=== PATIENT | male | born 1945 | race Hispanic/Latino ===

== ENCOUNTER 2016-10-04 06:52 | Inpatient (IN) | payer MEDICARE, OTHER ==
[2016-10-04] MEDS ORDERED: DUONEB 0.5 MG-3 MG/3 ML SOLN IH ONE (07:01)
--- NOTE | 2016-10-04 07:15 | XRay Report ---
AP CHEST History: Dyspnea. Findings: Mild cardiomegaly, mild pulmonary venous congestion and small bilateral pleural effusions are identified. This is similar in appearance to the exam dated 08/21/16. There are bibasilar atelectatic changes but no convincing pneumonia. No pneumothorax. Azygos lobe is noted. Previous CABG changes. Impression: CHF.
--- NOTE | 2016-10-04 07:23 | Admit Criteria Form ---
Admission Criteria Documentation: RESPIRATORY FAILURE GRG Clinical Indications for Admission to Inpatient Care (Place 'X' for any and all applicable criteria): Hospital admission is needed for appropriate care of the patient because of acute respiratory failure or insufficiency as indicated by ANY ONE of the following(1)(2)(3)(4)(5)(6)(7)(8): [X ]I. Mechanical ventilation needed (acute invasive or noninvasive) [ ]II. Severe ventilation deficit as indicated by ANY ONE of the following (9) [ ]a) Respiratory acidosis (pH less than 7.32 and partial pressure of carbon dioxide greater than 40 mm Hg (5.3 kPa)) [ ]b) Partial pressure of carbon dioxide greater than 44 mm Hg (5.9 kPa ) (new) [ ]c) Airflow measurements less than 25% of predicted (eg, peak expiratory flow rate less than 100 L/minute) [ ]d) Forced vital capacity less than 15 mL/kg of ideal body weight, or 50% decrease in vital capacity from baseline [ ]III. Noncardiac pulmonary edema not resolving with rapid emergency treatment (8) [ ]IV. Severe respiratory distress as indicated by ANY ONE of the following: [ ]a) Severe tachypnea (respiratory rate greater than 30, greater than 45 for 6-month-old, greater than 60 for ) [ ]b) Severe hypoxemia (partial pressure of oxygen less than 50 mm Hg ( 6.7 kPa) on greater than 50% oxygen or partial pressure of oxygen to FIO2 ratio less than 200) [ ]c) Mental status deterioration from respiratory disease [ ]V. Airway obstruction or inadequate protection [A](10)(11) The original [employer] content created by [employer] has been revised. The portions of the content which have been revised are identified through the use of italic text or in bold, and [employer] has neither reviewed nor approved the modified material. All other unmodified content is copyright [employer]. Please see references footnoted in the original [employer] edition 2016 Admission Criteria Met: Yes
[2016-10-04] MEDS ORDERED: LASIX IV ONE (07:28)
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
[2016-10-04 07:38] LABS: Hematocrit 29.4 % (35.5-45.6); Hemoglobin 9.4 gm/dl (11.8-15.2); Mean Corpuscular HGB Conc 32 % (32-34); Mean Corpuscular Volume 78 fl (84-94); Platelet Count 351 K/mm3 (140-440); Red Blood Count 3.76 M/mm3 (3.65-5.03); Red Cell Distribution Width 18.2 % (13.2-15.2); White Blood Count 10.4 K/mm3 (4.5-11.0)
[2016-10-04 07:39] LABS: Mean Corpuscular Hemoglobin 25 pg (28-32)
[2016-10-04 07:47] LABS: INR 1.16 (0.87-1.13); Partial Thromboplastin Time 26.2 Sec. (24.2-36.6)
[2016-10-04 07:51] LABS: Creatine Kinase MB 6.2 ng/mL (0.0-4.0)
[2016-10-04 07:53] LABS: Alanine Aminotransferase 22 units/L (7-56); Albumin 3.8 g/dL (3.9-5); Albumin/Globulin Ratio 1.5 %; Alkaline Phosphatase 64 units/L (35-129); Anion Gap 21 mmol/L; BUN/Creatinine Ratio 22.72; Bilirubin,Total 0.3 mg/dL (0.1-1.2); Blood Urea Nitrogen 25 mg/dL (9-20); Calcium 8.5 mg/dL (8.4-10.2); Carbon Dioxide 21 mmol/L (22-30); Chloride 101.1 mmol/L (98-107); Creatine Kinase 131 units/L (55-170); Glucose 270 mg/dL (75-100); Potassium 3.8 mmol/L (3.6-5.0); Sodium 139 mmol/L (137-145); Total Protein 6.4 g/dL (6.3-8.2)
[2016-10-04 08:11] LABS: Basophils % (Manual) 0 % (0.0-1.8); Blastocytes % (Manual) 0 %; Eosinophils % (Manual) 0 % (0.0-4.3)
[2016-10-04 08:12] LABS: Anisocytosis 1+; Elliptocytes Few
[2016-10-04 08:13] LABS: Diff Status Complete; Helmet Cells Few; Large Platelets Rare; Ovalocytes 1+; Tear Drop Cells 1+
[2016-10-04] MEDS ORDERED: NACL ONE (08:17)
[2016-10-04 08:32] LABS: ISTAT Base Excess -3; ISTAT HCO3 22.1; ISTAT PCO2 35.7 (35-45); ISTAT PH 7.399 (7.35-7.45); ISTAT PO2 64 (80-105); ISTAT SO2 92; ISTAT TCO2 23
[2016-10-04] MEDS ORDERED: LASIX ONE ×2 (08:47→11:24)
--- NOTE | 2016-10-04 10:24 | Cat Scan Report ---
CTA CHEST: HISTORY: Shortness of breath, elevated d-dimer. FINDINGS: No evidence of aortic aneurysm or pulmonary embolism. Mediastinal lymph nodes measuring approximately 1 cm in diameter. No pericardial effusion. Moderate bilateral pleural effusion. Compressive atelectasis of the lungs adjacent to the pleural effusion. Diffuse groundglass lungs bilaterally with pulmonary venous congestion. IMPRESSION: No evidence of pulmonary embolism. Probable CHF.
[2016-10-04] MEDS ORDERED: DULCOLAX PR PRN (11:42)
[2016-10-04] MEDS ORDERED: ALUM-MAG HYDROX-SIMETH 200-200-20MG/5ML PO PRN (11:42)
[2016-10-04] MEDS ORDERED: MILK OF MAGNESIA PO PRN (11:42)
[2016-10-04] MEDS ORDERED: PROAIR IH PRN (11:46)
[2016-10-04] MEDS ORDERED: D50W (25GM) IV PRN (11:47)
[2016-10-04] MEDS ORDERED: PROVENTIL IH PRN (12:53)
--- NOTE | 2016-10-04 13:05 | Consultation ---
History of Present Illness Consult date: 10/04/16 Consult reason: congestive heart failure History of present illness: Patient is a 71yr old man with history of coronary artery disease and ischemic cardiomyopathy. A year ago, he underwent three vessel coronary artery bypass done at the [facility]. Left ventricle ejection fraction 30-35% by echo 3 months ago. Reported noncompliant with outpatient cardiac followup at the [facility]. Patient presented to the ED with shortness of breath. Currently on Bipap therapy. Chest x-ray reports pleural effusions and mild venous congestion. No evidence of pulmonary embolism on chest CTA. ECG reveals a sinus tachycardia with a right bundle branch block. Cardiology consultation requested for CHF. Medications and Allergies Allergies Allergy/AdvReac Type Severity Reaction Status Date / Time lisinopril Allergy Swelling Verified 08/16/16 12:08 Penicillins Allergy Shortness Verified 08/16/16 12:08 of Breath tetracycline Allergy Rash Verified 08/16/16 12:08 Home Medications Medication Instructions Recorded Confirmed Last Taken Type Flomax 0.4 mg PO DAILY 08/16/16 10/04/16 10/03/16 History Magnesium Oxide [Magnesium] 400 mg PO DAILY 08/16/16 10/04/16 10/03/16 History NIFEdipine XL [Procardia Xl] 90 mg PO DAILY 08/16/16 10/04/16 10/03/16 History Potassium Chloride [K-Dur] 10 meq PO QDAY 08/16/16 10/04/16 10/03/16 History glipiZIDE [Glucotrol] 5 mg PO BID 08/16/16 10/04/16 10/03/16 History metFORMIN [Glucophage] 1,000 mg PO BID 08/16/16 10/04/16 10/03/16 History Albuterol Sulfate [Ventolin HFA] 2 puff IH Q4H PRN #1 pump 08/24/16 10/04/16 Rx Aspirin EC [Aspirin Enteric Coated 81 mg PO QDAY #30 tablet 08/24/16 10/04/16 Rx TAB] AtorvaSTATin [Lipitor] 40 mg PO QHS #30 tablet 08/24/16 10/04/16 10/03/16 Rx Clopidogrel [Plavix] 75 mg PO QDAY #30 tablet 08/24/16 10/04/16 10/03/16 Rx Famotidine [Pepcid] 20 mg PO BID #60 tablet 08/24/16 10/04/16 10/03/16 Rx Furosemide [Lasix TAB] 40 mg PO DAILY #30 tablet 08/24/16 10/04/16 10/03/16 Rx Metoprolol [Lopressor TAB] 12.5 mg PO BID #60 tablet 08/24/16 10/04/16 10/03/16 Rx Multivitamin Tab W-MINERAL 1 each PO QDAY #30 tablet 08/24/16 10/04/16 10/03/16 Rx [Multiple Vitamin/Mineral (Theragran M)] Cholecalciferol Vit D3 [Vitamin D3] 1,000 unit PO QDAY 10/04/16 10/04/16 History Active Meds: Active Medications Al Hydrox/Mg Hydrox/Simethicone (Alum-Mag Hydrox-Simeth [phone]/5ml) 30 ml PO Q4H PRN PRN Reason: Indigestion Albuterol (Proventil) 2.5 mg IH Q4HRT PRN PRN Reason: Shortness Of Breath Albuterol/Ipratropium (Duoneb 0.5 Mg-3 Mg/3 Ml Soln) 1 ampul IH Q6HRT SUNNY Aspirin (Halfprin Ec) 81 mg PO QDAY SUNNY Atorvastatin Calcium (Lipitor) 40 mg PO QHS SUNNY Bisacodyl (Dulcolax) 10 mg WI QDAY PRN PRN Reason: constipation unrelieved by MOM Cholecalciferol (Vitamin D3) 1,000 unit PO QDAY SUNNY Clopidogrel Bisulfate (Plavix) 75 mg PO QDAY SUNNY Dextrose (D50w (25gm)) 50 ml IV PRN PRN PRN Reason: Hypoglycemia Furosemide (Lasix) 40 mg IV 0600,1800 SUNNY Heparin Sodium (Porcine) (Heparin) 5,000 unit SUB-Q Q12HR SUNNY Insulin Aspart (Novolog) 0 units SUB-Q Q6HR SUNNY PRN Reason: Protocol Magnesium Hydroxide (Milk Of Magnesia) 30 ml PO Q4H PRN PRN Reason: Constipation Magnesium Oxide (Mag-Ox) 400 mg PO DAILY SUNNY Metoprolol Tartrate (Lopressor) 12.5 mg PO BID SUNNY Potassium Chloride (K-Dur) 10 meq PO QDAY [facility] Physical Examination Vital Signs Pulse Resp BP Pulse Ox 109 H 32 H 177/92 94 10/04/16 07:00 10/04/16 07:00 10/04/16 07:00 10/04/16 07:00 Cardiac: Positive: Reg Rate and Rhythm Results 10/04/16 07:20 10/04/16 07:20 EKG interpretations - Telemetry EKG Rhythm: Sinus Rhythm Assessment and Plan Acute hypoxic respiratory failure CHF exacerbation, systolic Anemia Hx of ischemic cardiomyopathy EF 30-35% on echo 06/2016 Hx of CAD s/p 3v CABG 08/2015 Diabetes mellitus Hypertension Hx of tracheostomy Obstructive sleep apnea
[2016-10-04] MEDS: DUONEB 0.5 MG-3 MG/3 ML SOLN IH SCH ×2 (15:51→19:40)
[2016-10-04 16:02] LABS: ISTAT Base Excess 0; ISTAT HCO3 24.4; ISTAT PCO2 36.6 (35-45); ISTAT PH 7.433 (7.35-7.45); ISTAT PO2 63 (80-105); ISTAT SO2 93; ISTAT TCO2 26
[2016-10-04] MEDS: LOPRESSOR PO SCH ×2 (17:24→21:22)
[2016-10-04 17:25] LABS: Bilirubin,Urine NEG (Negative); Blood,Urine NEG (Negative); Ketones,Urine NEG (Negative); Leukocyte Esterase,Urine NEG (Negative); Mucus,Urine FEW /HPF; Nitrite,Urine NEG (Negative); RBC,Urine < 1.0 /HPF (0.0-6.0); Urobilinogen,Urine < 2.0 mg/dL (<2.0); WBC,Urine < 1.0 /HPF (0.0-6.0)
[2016-10-04] MEDS: LASIX IV SCH (17:26)
[2016-10-04] MEDS: NOVOLOG SUB-Q SCH ×2 (17:28→23:46)
--- NOTE | 2016-10-04 17:49 | History and Physical Report ---
History of Present Illness Date of examination: 10/04/16 Date of admission: 10/04/16 11:42 Chief complaint: Shortness of breath History of present illness: Patient is a pleasant 71-year-old male with past medical history of congestive heart failure, diabetes mellitus, ischemic cardiomyopathy, CAD, 3 vessel bypass CABG, and recurrent admission for congestive heart failure who presents to the ER via EMS with report of shortness of breath that has been progressively getting worse over the past few weeks. Worse last night with hypoxia at EMS arrival at mid 80s. On arrival to the ER patient was noted to be significantly edematous. Requiring BiPAP. Despite initial 80 mg of IV Lasix still remained on BiPAP. The patient denied any chest pain. Denied any nausea, vomiting, diarrhea. Was in the hospital in August 2016 for similar symptoms and has been hospitalized at the [facility] also. He is very dyspneic on appearance. I could not answer most questions. ROS Constitutional: No fever, fatigue or weight loss. Skin: No rash. Eyes: No recent vision problems or eye pain. ENT: No congestion, ear pain, or sore throat. Endocrine: No thyroid problems. Cardiovascular: No chest pain. Respiratory: Reports shortness of breath, cough, orthopnea, but no wheezing Gastrointestinal: No abdominal pain, nausea, vomiting, or diarrhea. Genitourinary: No dysuria. Musculoskeletal: No joint swelling, but reports lower extremity swelling. Neurologic: No seizures. Hematologic: No unusual bruising or bleeding. Psychiatric: No psychiatric problems, hallucinations or depression. All other systems reviewed and otherwise negative. Past History Past Medical History: CAD, diabetes, heart failure, hypertension, hyperlipidemia Past Surgical History: CABG Social history: , full code. denies: smoking, alcohol abuse, prescription drug abuse, IV drug use Family history: no significant family history Medications and Allergies Allergies Allergy/AdvReac Type Severity Reaction Status Date / Time lisinopril Allergy Swelling Verified 08/16/16 12:08 Penicillins Allergy Shortness Verified 08/16/16 12:08 of Breath tetracycline Allergy Rash Verified 08/16/16 12:08 Home Medications Medication Instructions Recorded Confirmed Last Taken Type Flomax 0.4 mg PO DAILY 08/16/16 10/04/16 10/03/16 History Magnesium Oxide [Magnesium] 400 mg PO DAILY 08/16/16 10/04/16 10/03/16 History NIFEdipine XL [Procardia Xl] 90 mg PO DAILY 08/16/16 10/04/16 10/03/16 History Potassium Chloride [K-Dur] 10 meq PO QDAY 08/16/16 10/04/16 10/03/16 History glipiZIDE [Glucotrol] 5 mg PO BID 08/16/16 10/04/16 10/03/16 History metFORMIN [Glucophage] 1,000 mg PO BID 08/16/16 10/04/16 10/03/16 History Albuterol Sulfate [Ventolin HFA] 2 puff IH Q4H PRN #1 pump 08/24/16 10/04/16 Rx Aspirin EC [Aspirin Enteric Coated 81 mg PO QDAY #30 tablet 08/24/16 10/04/16 Rx TAB] AtorvaSTATin [Lipitor] 40 mg PO QHS #30 tablet 08/24/16 10/04/16 10/03/16 Rx Clopidogrel [Plavix] 75 mg PO QDAY #30 tablet 08/24/16 10/04/16 10/03/16 Rx Famotidine [Pepcid] 20 mg PO BID #60 tablet 08/24/16 10/04/16 10/03/16 Rx Furosemide [Lasix TAB] 40 mg PO DAILY #30 tablet 08/24/16 10/04/16 10/03/16 Rx Metoprolol [Lopressor TAB] 12.5 mg PO BID #60 tablet 08/24/16 10/04/16 10/03/16 Rx Multivitamin Tab W-MINERAL 1 each PO QDAY #30 tablet 08/24/16 10/04/16 10/03/16 Rx [Multiple Vitamin/Mineral (Theragran M)] Cholecalciferol Vit D3 [Vitamin D3] 1,000 unit PO QDAY 10/04/16 10/04/16 History Active Meds: Active Medications Al Hydrox/Mg Hydrox/Simethicone (Alum-Mag Hydrox-Simeth [id number]/5ml) 30 ml PO Q4H PRN PRN Reason: Indigestion Albuterol (Proventil) 2.5 mg IH Q4HRT PRN PRN Reason: Shortness Of Breath Albuterol/Ipratropium (Duoneb 0.5 Mg-3 Mg/3 Ml Soln) 1 ampul IH Q6HRT [facility] Last Admin: 10/04/16 15:51 Dose: 1 ampul Aspirin (Halfprin Ec) 81 mg PO QDAY [facility] Atorvastatin Calcium (Lipitor) 40 mg PO QHS [facility] Bisacodyl (Dulcolax) 10 mg [place] QDAY PRN PRN Reason: constipation unrelieved by MOM Cholecalciferol (Vitamin D3) 1,000 unit PO QDAY [facility] Clopidogrel Bisulfate (Plavix) 75 mg PO QDAY [facility] Dextrose (D50w (25gm)) 50 ml IV PRN PRN PRN Reason: Hypoglycemia Furosemide (Lasix) 40 mg IV 0600,1800 [facility] Last Admin: 10/04/16 17:26 Dose: 40 mg Heparin Sodium (Porcine) (Heparin) 5,000 unit SUB-Q Q12HR SUNNY Insulin Aspart (Novolog) 0 units SUB-Q Q6HR SUNNY PRN Reason: Protocol Last Admin: 10/04/16 17:28 Dose: Not Given Magnesium Hydroxide (Milk Of Magnesia) 30 ml PO Q4H PRN PRN Reason: Constipation Magnesium Oxide (Mag-Ox) 400 mg PO DAILY [facility] Metoprolol Tartrate (Lopressor) 12.5 mg PO BID [facility] Last Admin: 10/04/16 17:24 Dose: 12.5 mg Potassium Chloride (K-Dur) 10 meq PO QDAY [facility] Exam - Physical Exam Narrative exam: VITAL SIGNS: Reviewed. GENERAL: The patient appeared well nourished and normally developed with moderate respiratory distress. Vital signs as documented. HEAD: No signs of head trauma. EYES: Pupils are equal. Extraocular motions intact. EARS: Hearing grossly intact. MOUTH: Oropharynx is normal. NECK: No adenopathy, no JVD. CHEST: Chest with crackles bilaterally. Mild expiratory wheeze CARDIAC: Regular rate and rhythm. S1 and S2, without murmurs, gallops, or rubs. VASCULAR: 2+ pitting edema bilaterally. Peripheral pulses normal and equal in all extremities. ABDOMEN: Soft, without detectable tenderness. No sign of distention. No rebound or guarding, and no masses palpated. Bowel Sounds normal. MUSCULOSKELETAL: Good range of motion of all major joints. Extremities without clubbing, cyanosis. 2+ pitting edema bilaterally. NEUROLOGIC EXAM: Alert and oriented x 3. No focal sensory or strength deficits. Speech normal. Follows commands. PSYCHIATRIC: Mood anxious SKIN: No rash or lesions. - Constitutional Vitals: Temp Pulse Resp BP Pulse Ox 98.1 F 75 19 151/84 99 10/04/16 13:10 10/04/16 17:24 10/04/16 17:00 10/04/16 17:24 10/04/16 17:00 Results - Labs CBC & Chem 7: 10/05/16 04:20 10/05/16 04:20 Labs: Laboratory Last Values WBC 10.4 K/mm3 (4.5-11.0) 10/04/16 07:20 RBC 3.76 M/mm3 (3.65-5.03) 10/04/16 07:20 Hgb 9.4 gm/dl (11.8-15.2) L 10/04/16 07:20 Hct 29.4 % (35.5-45.6) L 10/04/16 07:20 MCV 78 fl (84-94) L 10/04/16 07:20 MCH 25 pg (28-32) L 10/04/16 07:20 MCHC 32 % (32-34) 10/04/16 07:20 RDW 18.2 % (13.2-15.2) H 10/04/16 07:20 Plt Count 351 K/mm3 (140-440) 10/04/16 07:20 Add Manual Diff Complete 10/04/16 07:20 Total Counted 100 10/04/16 07:20 Seg Neutrophils % Jewelry Drill Operator 10/04/16 07:20 Seg Neuts % (Manual) 96.0 % (40.0-70.0) H 10/04/16 07:20 Band Neutrophils % 0 % 10/04/16 07:20 Lymphocytes % (Manual) 3.0 % (13.4-35.0) L 10/04/16 07:20 Reactive Lymphs % (Man) 0 % 10/04/16 07:20 Monocytes % (Manual) 1.0 % (0.0-7.3) 10/04/16 07:20 Eosinophils % (Manual) 0 % (0.0-4.3) 10/04/16 07:20 Basophils % (Manual) 0 % (0.0-1.8) 10/04/16 07:20 Metamyelocytes % 0 % 10/04/16 07:20 Myelocytes % 0 % 10/04/16 07:20 Promyelocytes % 0 % 10/04/16 07:20 Blast Cells % 0 % 10/04/16 07:20 Nucleated RBC % Not Reportable 10/04/16 07:20 Seg Neutrophils # Man 10.0 K/mm3 (1.8-7.7) H 10/04/16 07:20 Band Neutrophils # 0.0 K/mm3 10/04/16 07:20 Lymphocytes # (Manual) 0.3 K/mm3 (1.2-5.4) L 10/04/16 07:20 Abs React Lymphs (Man) 0.0 K/mm3 10/04/16 07:20 Monocytes # (Manual) 0.1 K/mm3 (0.0-0.8) 10/04/16 07:20 Eosinophils # (Manual) 0.0 K/mm3 (0.0-0.4) 10/04/16 07:20 Basophils # (Manual) 0.0 K/mm3 (0.0-0.1) 10/04/16 07:20 Metamyelocytes # 0.0 K/mm3 10/04/16 07:20 Myelocytes # 0.0 K/mm3 10/04/16 07:20 Promyelocytes # 0.0 K/mm3 10/04/16 07:20 Blast Cells # 0.0 K/mm3 10/04/16 07:20 WBC Morphology Not Reportable 10/04/16 07:20 Hypersegmented Neuts Not Reportable 10/04/16 07:20 Hyposegmented Neuts Not Reportable 10/04/16 07:20 Hypogranular Neuts Not Reportable 10/04/16 07:20 Smudge Cells Not Reportable 10/04/16 07:20 Toxic Granulation Not Reportable 10/04/16 07:20 Toxic Vacuolation Not Reportable 10/04/16 07:20 Dohle Bodies Not Reportable 10/04/16 07:20 Pelger-Huet Anomaly Not Reportable 10/04/16 07:20 Johanna Rods Not Reportable 10/04/16 07:20 Platelet Estimate Appears normal 10/04/16 07:20 Clumped Platelets Not Reportable 10/04/16 07:20 Plt Clumps, EDTA Not Reportable 10/04/16 07:20 Large Platelets Rare 10/04/16 07:20 Giant Platelets Not Reportable 10/04/16 07:20 Platelet Satelliting Not Reportable 10/04/16 07:20 Plt Morphology Comment Not Reportable 10/04/16 07:20 RBC Morphology Not Reportable 10/04/16 07:20 Dimorphic RBCs Not Reportable 10/04/16 07:20 Polychromasia Not Reportable 10/04/16 07:20 Hypochromasia Not Reportable 10/04/16 07:20 Poikilocytosis Not Reportable 10/04/16 07:20 Anisocytosis 1+ 10/04/16 07:20 Microcytosis Not Reportable 10/04/16 07:20 Macrocytosis Not Reportable 10/04/16 07:20 Spherocytes Not Reportable 10/04/16 07:20 Pappenheimer Bodies Not Reportable 10/04/16 07:20 Sickle Cells Not Reportable 10/04/16 07:20 Target Cells Not Reportable 10/04/16 07:20 Tear Drop Cells 1+ 10/04/16 07:20 Ovalocytes 1+ 10/04/16 07:20 Helmet Cells Few 10/04/16 07:20 Harrell-Shaw Bodies Not Reportable 10/04/16 07:20 [place] Rings Not Reportable 10/04/16 07:20 Kittrell Cells Not Reportable 10/04/16 07:20 Bite Cells Not Reportable 10/04/16 07:20 Crenated Cell Not Reportable 10/04/16 07:20 Elliptocytes Few 10/04/16 07:20 Acanthocytes (Spur) Not Reportable 10/04/16 07:20 Rouleaux Not Reportable 10/04/16 07:20 Hemoglobin C Crystals Not Reportable 10/04/16 07:20 Schistocytes Not Reportable 10/04/16 07:20 Malaria parasites Not Reportable 10/04/16 07:20 Philip Bodies Not Reportable 10/04/16 07:20 Hem Pathologist Commnt No 10/04/16 07:20 PT 14.7 Sec. (12.2-14.9) 10/04/16 07:20 INR 1.16 (0.87-1.13) H 10/04/16 07:20 APTT 26.2 Sec. (24.2-36.6) 10/04/16 07:20 D-Dimer 431.65 ng/mlDDU (0-234) H 10/04/16 07:20 POC ABG pH 7.433 (7.35-7.45) 10/04/16 15:47 POC ABG pCO2 36.6 (35-45) 10/04/16 15:47 POC ABG pO2 63 (80-105) L 10/04/16 15:47 POC ABG HCO3 24.4 10/04/16 15:47 POC ABG Total CO2 26 10/04/16 15:47 POC ABG O2 Sat 93 10/04/16 15:47 POC ABG Base Excess 0 10/04/16 15:47 FiO2 50 % 10/04/16 15:47 Sodium 139 mmol/L (137-145) 10/04/16 07:20 Potassium 3.8 mmol/L (3.6-5.0) 10/04/16 07:20 Chloride 101.1 mmol/L (98-107) 10/04/16 07:20 Carbon Dioxide 21 mmol/L (22-30) L 10/04/16 07:20 Anion Gap 21 mmol/L 10/04/16 07:20 BUN 25 mg/dL (9-20) H 10/04/16 07:20 Creatinine 1.1 mg/dL (0.8-1.5) 10/04/16 07:20 Estimated GFR > 60 ml/min 10/04/16 07:20 BUN/Creatinine Ratio 22.72 % 10/04/16 07:20 Glucose 270 mg/dL (75-100) H 10/04/16 07:20 POC Glucose 165 (70-105) H 10/04/16 17:01 Lactic Acid 2.0 mmol/L (0.7-2.0) 10/04/16 07:28 Calcium 8.5 mg/dL (8.4-10.2) 10/04/16 07:20 Magnesium 2.0 mg/dL (1.7-2.3) 10/04/16 07:20 Total Bilirubin 0.3 mg/dL (0.1-1.2) 10/04/16 07:20 AST 22 units/L (5-40) 10/04/16 07:20 ALT 22 units/L (7-56) 10/04/16 07:20 Alkaline Phosphatase 64 units/L (35-129) 10/04/16 07:20 Total Creatine Kinase 131 units/L (55-170) 10/04/16 07:20 CK-MB (CK-2) 6.2 ng/mL (0.0-4.0) H 10/04/16 07:20 CK-MB (CK-2) Rel Index 4.7 (0-4) H 10/04/16 07:20 Troponin T 0.023 ng/mL (0.00-0.029) 10/04/16 13:39 NT-Pro-B Natriuret Pep 6962 pg/mL (0-900) H 10/04/16 07:20 Total Protein 6.4 g/dL (6.3-8.2) 10/04/16 07:20 Albumin 3.8 g/dL (3.9-5) L 10/04/16 07:20 Albumin/Globulin Ratio 1.5 % 10/04/16 07:20 Urine Color Straw (Yellow) 10/04/16 17:05 Urine Turbidity Clear (Clear) 10/04/16 17:05 Urine pH 5.0 (5.0-7.0) 10/04/16 17:05 Ur Specific [place] 1.024 (1.003-1.030) 10/04/16 17:05 Urine Protein 100 mg/dl mg/dL (Negative) 10/04/16 17:05 Urine Glucose (UA) Neg mg/dL (Negative) 10/04/16 17:05 Urine Ketones Neg mg/dL (Negative) 10/04/16 17:05 Urine Blood Neg (Negative) 10/04/16 17:05 Urine Nitrite Neg (Negative) 10/04/16 17:05 Urine Bilirubin Neg (Negative) 10/04/16 17:05 Urine Urobilinogen < 2.0 mg/dL (<2.0) 10/04/16 17:05 Ur Leukocyte Esterase Neg (Negative) 10/04/16 17:05 Urine WBC (Auto) < 1.0 /HPF (0.0-6.0) 10/04/16 17:05 Urine RBC (Auto) < 1.0 /HPF (0.0-6.0) 10/04/16 17:05 Urine Mucus Few /HPF 10/04/16 17:05 - Imaging and Cardiology EKG: image reviewed (sinus tachycardia) Chest x-ray: image reviewed (congestive heart failure) Assessment and Plan Assessment and plan: Patient is a pleasant 71-year-old male with past medical history of congestive heart failure, diabetes mellitus, ischemic cardiomyopathy, CAD, 3 vessel bypass CABG, and recurrent admission for congestive heart failure who presents to the ER via EMS with report of shortness of breath that has been progressively getting worse over the past few weeks. Worse last night with hypoxia at EMS arrival at mid 80s. On arrival to the ER patient was noted to be significantly edematous. Requiring BiPAP. Despite initial 80 mg of IV Lasix still remained on BiPAP. The patient denied any chest pain. Denied any nausea, vomiting, diarrhea. Was in the hospital in August 2016 for similar symptoms and has been hospitalized at the [facility] also. He is very dyspneic on appearance. I could not answer most questions. * Acute on chronic systolic congestive heart failure * Ischemic cardiomyopathy-EF 30-35% * Diabetes mellitus * Acute on chronic hypoxic respiratory failure * CAD status post CABG-3 vessels 2015 * History of tracheostomy * Hypertension * Anemia of chronic disease Plan * We'll continue patient on BiPAP at this point I'll admit patient to intensive care unit for further monitoring. * Aggressive diuresis * Daily weights, strict ins and outs * Consult cardiology and discussed with the senior corporate strategy manager service * We'll consult assistant professor of forestry. Also discussed with critical care service * Continue home medications including beta blockers and type platelets * Insulin and Accu-Cheks before meals and daily at bedtime and if patient unable to weaned weaned off the BiPAP will make this every 6 hours * DVT and GI prophylaxis * I have explained to the family and to the patient find this current therapy of care The high probability of a clinically significant, sudden or life threatening deterioration of the [35] system(s) required my full and direct attention, intervention and personal management. The aggregate critical care time was [ cardiac] minutes. This time is in addition to time spent performing reported procedures but includes the following: [x] Data Review and interpretation [x] Patient assessment and monitoring of vital signs [x] Documentation [x] Medication orders and management Advance Directives: Yes Plan of care discussed with patient/family: Yes
[2016-10-04] MEDS: HEPARIN SUB-Q SCH (21:22)
[2016-10-05] MEDS: DUONEB 0.5 MG-3 MG/3 ML SOLN IH SCH ×4 (02:28→19:35)
[2016-10-05 05:31] LABS: Basophils % (Auto) 0.5 % (0.0-1.8); Eosinophils % (Auto) 0.4 % (0.0-4.3); Mean Corpuscular HGB Conc 32 % (32-34); Mean Corpuscular Volume 78 fl (84-94); Platelet Count 326 K/mm3 (140-440); Red Blood Count 3.62 M/mm3 (3.65-5.03); Red Cell Distribution Width 18.3 % (13.2-15.2); White Blood Count 6.4 K/mm3 (4.5-11.0)
[2016-10-05] MEDS: LASIX IV SCH ×2 (05:32→19:37)
[2016-10-05] MEDS: NOVOLOG SUB-Q SCH ×3 (05:32→19:40)
[2016-10-05 05:41] LABS: Mean Corpuscular Hemoglobin 25 pg (28-32)
[2016-10-05 05:51] LABS: BUN/Creatinine Ratio 19.23; Calcium 8.5 mg/dL (8.4-10.2); Chloride 102.4 mmol/L (98-107)
[2016-10-05] MEDS ORDERED: PROVENTIL IH PRN (07:16)
--- NOTE | 2016-10-05 09:53 | Consultation ---
History of Present Illness Consult date: 10/05/16 Requesting physician: JOSELINE DOUGLASS Reason for consult: hypoxemia, other (acute on chronic respiratory failure.) History of present illness: 71 y/o male with known systolic heart failure EF of 25-30%, COPD and chronic respiratory failure admitted with acute on chronic respiratory failure. Given degree of respiratory failure and continuous bipap requirement patient was transferred to ICU for further monitoring. Patient has been diuresed and has an adequate negative output. He has since been weaned off of bipap and is currently satting in the low 90's on venti-mask. He denies any current chest pain or worsening shortness of breath. BNP was greater than 6K on admission. Also of note, patient was just admitted to [facility] about 2 weeks ago with the same complaints. Past History Past Medical History: CAD, diabetes, heart failure, hypertension, hyperlipidemia Past Surgical History: CABG Social history: , full code. denies: smoking, alcohol abuse, prescription drug abuse, IV drug use Family history: no significant family history Medications and Allergies Allergies Allergy/AdvReac Type Severity Reaction Status Date / Time lisinopril Allergy Swelling Verified 08/16/16 12:08 Penicillins Allergy Shortness Verified 08/16/16 12:08 of Breath tetracycline Allergy Rash Verified 08/16/16 12:08 Home Medications Medication Instructions Recorded Confirmed Last Taken Type Flomax 0.4 mg PO DAILY 08/16/16 10/04/16 10/03/16 History Magnesium Oxide [Magnesium] 400 mg PO DAILY 08/16/16 10/04/16 10/03/16 History NIFEdipine XL [Procardia Xl] 90 mg PO DAILY 08/16/16 10/04/16 10/03/16 History Potassium Chloride [K-Dur] 10 meq PO QDAY 08/16/16 10/04/16 10/03/16 History glipiZIDE [Glucotrol] 5 mg PO BID 08/16/16 10/04/16 10/03/16 History metFORMIN [Glucophage] 1,000 mg PO BID 08/16/16 10/04/16 10/03/16 History Albuterol Sulfate [Ventolin HFA] 2 puff IH Q4H PRN #1 pump 08/24/16 10/04/16 Rx Aspirin EC [Aspirin Enteric Coated 81 mg PO QDAY #30 tablet 08/24/16 10/04/16 Rx TAB] AtorvaSTATin [Lipitor] 40 mg PO QHS #30 tablet 08/24/16 10/04/16 10/03/16 Rx Clopidogrel [Plavix] 75 mg PO QDAY #30 tablet 08/24/16 10/04/16 10/03/16 Rx Famotidine [Pepcid] 20 mg PO BID #60 tablet 08/24/16 10/04/16 10/03/16 Rx Furosemide [Lasix TAB] 40 mg PO DAILY #30 tablet 08/24/16 10/04/16 10/03/16 Rx Metoprolol [Lopressor TAB] 12.5 mg PO BID #60 tablet 08/24/16 10/04/16 10/03/16 Rx Multivitamin Tab W-MINERAL 1 each PO QDAY #30 tablet 08/24/16 10/04/16 10/03/16 Rx [Multiple Vitamin/Mineral (Theragran M)] Cholecalciferol Vit D3 [Vitamin D3] 1,000 unit PO QDAY 10/04/16 10/04/16 History Active Meds: Active Medications Al Hydrox/Mg Hydrox/Simethicone (Alum-Mag Hydrox-Simeth [id number]/5ml) 30 ml PO Q4H PRN PRN Reason: Indigestion Albuterol (Proventil) 2.5 mg IH Q4HRT PRN PRN Reason: Shortness Of Breath Albuterol/Ipratropium (Duoneb 0.5 Mg-3 Mg/3 Ml Soln) 1 ampul IH Q6HRT [facility] Arformoterol Tartrate (Brovana Nebu) 15 mcg IH Q12HRT [facility] Aspirin (Halfprin Ec) 81 mg PO QDAY [facility] Atorvastatin Calcium (Lipitor) 40 mg PO QHS [facility] Last Admin: 10/04/16 21:21 Dose: 40 mg Bisacodyl (Dulcolax) 10 mg [place] QDAY PRN PRN Reason: constipation unrelieved by MOM Budesonide (Pulmicort) 0.5 mg IH Q12HRT [facility] Cholecalciferol (Vitamin D3) 1,000 unit PO QDAY [facility] Clopidogrel Bisulfate (Plavix) 75 mg PO QDAY [facility] Dextrose (D50w (25gm)) 50 ml IV PRN PRN PRN Reason: Hypoglycemia Furosemide (Lasix) 40 mg IV 0600,1800 [facility] Last Admin: 10/05/16 05:32 Dose: 40 mg Heparin Sodium (Porcine) (Heparin) 5,000 unit SUB-Q Q12HR [facility] Last Admin: 10/04/16 21:22 Dose: 5,000 unit Insulin Aspart (Novolog) 0 units SUB-Q Q6HR [facility] PRN Reason: Protocol Last Admin: 10/05/16 05:32 Dose: Not Given Magnesium Hydroxide (Milk Of Magnesia) 30 ml PO Q4H PRN PRN Reason: Constipation Magnesium Oxide (Mag-Ox) 400 mg PO DAILY [facility] Metoprolol Tartrate (Lopressor) 12.5 mg PO BID [facility] Last Admin: 10/04/16 21:22 Dose: 12.5 mg Potassium Chloride (K-Dur) 10 meq PO QDAY [facility] Review of Systems All systems: negative Physical Examination Vital signs: Vital Signs Pulse Resp BP Pulse Ox 109 H 32 H 177/92 94 10/04/16 07:00 10/04/16 07:00 10/04/16 07:00 10/04/16 07:00 Results - Laboratory Findings CBC and BMP: 10/05/16 04:20 10/05/16 04:20 ABG POC ABG pH 7.433 (7.35-7.45) 10/04/16 15:47 POC ABG pCO2 36.6 (35-45) 10/04/16 15:47 POC ABG pO2 63 (80-105) L 10/04/16 15:47 POC ABG HCO3 24.4 10/04/16 15:47 POC ABG Total CO2 26 10/04/16 15:47 POC ABG O2 Sat 93 10/04/16 15:47 PT/INR, D-dimer PT 14.7 Sec. (12.2-14.9) 10/04/16 07:20 INR 1.16 (0.87-1.13) H 10/04/16 07:20 D-Dimer 431.65 ng/mlDDU (0-234) H 10/04/16 07:20 Abnormal lab findings: Abnormal Labs 10/04/16 10/04/16 10/04/16 13:20 15:47 17:01 RBC Hgb Hct MCV MCH RDW Lymph # Seg Neutrophils % POC ABG pO2 63 L BUN Glucose POC Glucose 226 H 165 H 10/04/16 10/05/16 10/05/16 23:04 04:20 04:20 RBC 3.62 L Hgb 9.0 L Hct 28.0 L MCV 78 L MCH 25 L RDW 18.3 H Lymph # 1.1 L Seg Neutrophils % 75.1 H POC ABG pO2 BUN 25 H Glucose 105 H POC Glucose 124 H 10/05/16 05:03 RBC Hgb Hct MCV MCH RDW Lymph # Seg Neutrophils % POC ABG pO2 BUN Glucose POC Glucose 118 H - Diagnostic Findings Chest x-ray: image reviewed (pulmonary edema with bilateral effusions, appears right greater than left) Assessment and Plan 71 y/o male with acute on chronic respiratory failure secondary to acute exacerbation of systolic heart failure. 1 . Daily net negative state 2. BP and rate control 3. Will have to ask about COPD regimen as patient does not remember the meds 4. Stable for transfer out of ICU to floor. [facility]ly [facility]. He apparently does have sleep apnea so will ask the IMS continue PPV at night.
--- NOTE | 2016-10-05 10:27 | Progress Note ---
Assessment and Plan Assessment and plan: Patient is a pleasant 71-year-old male with past medical history of congestive heart failure, diabetes mellitus, ischemic cardiomyopathy, CAD, 3 vessel bypass CABG, and recurrent admission for congestive heart failure who presents to the ER via EMS with report of shortness of breath that has been progressively getting worse over the past few weeks. Worse last night with hypoxia at EMS arrival at mid 80s. On arrival to the ER patient was noted to be significantly edematous. Requiring BiPAP. Despite initial 80 mg of IV Lasix still remained on BiPAP. The patient denied any chest pain. Denied any nausea, vomiting, diarrhea. Was in the hospital in August 2016 for similar symptoms and has been hospitalized at the [facility] also. He is very dyspneic on appearance. I could not answer most questions. * Acute on chronic systolic congestive heart failure * Ischemic cardiomyopathy-EF 30-35% * Diabetes mellitus * Acute on chronic hypoxic respiratory failure * CAD status post CABG-3 vessels 2015 * History of tracheostomy * COPD * Hypertension * Anemia of chronic disease * KAYLEEN Plan * Clinical stable to be transferred to the medical floor on telemetry * Continue current therapy with aggressive diuresis and maintenance negative daily fluid balance * CPAP * Aggressive diuresis * Daily weights, strict ins and outs * Cardiology and Power Saw Mechanic input * Continue home medications including beta blockers and type platelets * Insulin and Accu-Cheks before meals and daily at bedtime and if patient unable to weaned weaned off the BiPAP will make this every 6 hours * DVT and GI prophylaxis The high probability of a clinically significant, sudden or life threatening deterioration of the [35] system(s) required my full and direct attention, intervention and personal management. The aggregate critical care time was [ cardiac] minutes. This time is in addition to time spent performing reported procedures but includes the following: [x] Data Review and interpretation [x] Patient assessment and monitoring of vital signs [x] Documentation [x] Medication orders and management History Interval history: Follow-up congestive heart failure admission Patient seen and examined this morning in no acute distress number post remarkable improvement still requiring oxygen. Denies any chest pain, nausea, vomiting, diarrhea No fever noted blood pressure controlled No adverse events reported to me by nursing staff Hospitalist Physical - Physical exam Narrative exam: VITAL SIGNS: Reviewed. GENERAL: The patient appeared well nourished and normally developed with mild respiratory distress. Vital signs as documented. HEAD: No signs of head trauma. EYES: Pupils are equal. Extraocular motions intact. EARS: Hearing grossly intact. MOUTH: Oropharynx is normal. NECK: No adenopathy, no JVD. CHEST: Chest with crackles bilaterally. Mild expiratory wheeze CARDIAC: Regular rate and rhythm. S1 and S2, without murmurs, gallops, or rubs. VASCULAR: 2+ pitting edema bilaterally. Peripheral pulses normal and equal in all extremities. ABDOMEN: Soft, without detectable tenderness. No sign of distention. No rebound or guarding, and no masses palpated. Bowel Sounds normal. MUSCULOSKELETAL: Good range of motion of all major joints. Extremities without clubbing, cyanosis. 2+ pitting edema bilaterally. NEUROLOGIC EXAM: Alert and oriented x 3. No focal sensory or strength deficits. Speech normal. Follows commands. PSYCHIATRIC: Mood anxious SKIN: No rash or lesions. - Constitutional Vitals: Temp Pulse Resp BP Pulse Ox 97.9 F 88 19 160/77 80 L 10/05/16 08:00 10/05/16 09:00 10/05/16 09:00 10/05/16 09:00 10/05/16 09:00 Results - Labs CBC & Chem 7: 10/05/16 04:20 10/05/16 04:20 Labs: Laboratory Last Values WBC 6.4 K/mm3 (4.5-11.0) 10/05/16 04:20 RBC 3.62 M/mm3 (3.65-5.03) L 10/05/16 04:20 Hgb 9.0 gm/dl (11.8-15.2) L 10/05/16 04:20 Hct 28.0 % (35.5-45.6) L 10/05/16 04:20 MCV 78 fl (84-94) L 10/05/16 04:20 MCH 25 pg (28-32) L 10/05/16 04:20 MCHC 32 % (32-34) 10/05/16 04:20 RDW 18.3 % (13.2-15.2) H 10/05/16 04:20 Plt Count 326 K/mm3 (140-440) 10/05/16 04:20 Lymph % (Auto) 16.7 % (13.4-35.0) 10/05/16 04:20 [place] % (Auto) 7.3 % (0.0-7.3) 10/05/16 04:20 Eos % (Auto) 0.4 % (0.0-4.3) 10/05/16 04:20 Baso % (Auto) 0.5 % (0.0-1.8) 10/05/16 04:20 Lymph # 1.1 K/mm3 (1.2-5.4) L 10/05/16 04:20 [place] # 0.5 K/mm3 (0.0-0.8) 10/05/16 04:20 Eos # 0.0 K/mm3 (0.0-0.4) 10/05/16 04:20 Baso # 0.0 K/mm3 (0.0-0.1) 10/05/16 04:20 Add Manual Diff Complete 10/04/16 07:20 Total Counted 100 10/04/16 07:20 Seg Neutrophils % 75.1 % (40.0-70.0) H 10/05/16 04:20 Seg Neuts % (Manual) 96.0 % (40.0-70.0) H 10/04/16 07:20 Band Neutrophils % 0 % 10/04/16 07:20 Lymphocytes % (Manual) 3.0 % (13.4-35.0) L 10/04/16 07:20 Reactive Lymphs % (Man) 0 % 10/04/16 07:20 Monocytes % (Manual) 1.0 % (0.0-7.3) 10/04/16 07:20 Eosinophils % (Manual) 0 % (0.0-4.3) 10/04/16 07:20 Basophils % (Manual) 0 % (0.0-1.8) 10/04/16 07:20 Metamyelocytes % 0 % 10/04/16 07:20 Myelocytes % 0 % 10/04/16 07:20 Promyelocytes % 0 % 10/04/16 07:20 Blast Cells % 0 % 10/04/16 07:20 Nucleated RBC % Not Reportable 10/04/16 07:20 Seg Neutrophils # 4.8 K/mm3 (1.8-7.7) 10/05/16 04:20 Seg Neutrophils # Man 10.0 K/mm3 (1.8-7.7) H 10/04/16 07:20 Band Neutrophils # 0.0 K/mm3 10/04/16 07:20 Lymphocytes # (Manual) 0.3 K/mm3 (1.2-5.4) L 10/04/16 07:20 Abs React Lymphs (Man) 0.0 K/mm3 10/04/16 07:20 Monocytes # (Manual) 0.1 K/mm3 (0.0-0.8) 10/04/16 07:20 Eosinophils # (Manual) 0.0 K/mm3 (0.0-0.4) 10/04/16 07:20 Basophils # (Manual) 0.0 K/mm3 (0.0-0.1) 10/04/16 07:20 Metamyelocytes # 0.0 K/mm3 10/04/16 07:20 Myelocytes # 0.0 K/mm3 10/04/16 07:20 Promyelocytes # 0.0 K/mm3 10/04/16 07:20 Blast Cells # 0.0 K/mm3 10/04/16 07:20 WBC Morphology Not Reportable 10/04/16 07:20 Hypersegmented Neuts Not Reportable 10/04/16 07:20 Hyposegmented Neuts Not Reportable 10/04/16 07:20 Hypogranular Neuts Not Reportable 10/04/16 07:20 Smudge Cells Not Reportable 10/04/16 07:20 Toxic Granulation Not Reportable 10/04/16 07:20 Toxic Vacuolation Not Reportable 10/04/16 07:20 Dohle Bodies Not Reportable 10/04/16 07:20 Pelger-Huet Anomaly Not Reportable 10/04/16 07:20 Johanna Rods Not Reportable 10/04/16 07:20 Platelet Estimate Appears normal 10/04/16 07:20 Clumped Platelets Not Reportable 10/04/16 07:20 Plt Clumps, EDTA Not Reportable 10/04/16 07:20 Large Platelets Rare 10/04/16 07:20 Giant Platelets Not Reportable 10/04/16 07:20 Platelet Satelliting Not Reportable 10/04/16 07:20 Plt Morphology Comment Not Reportable 10/04/16 07:20 RBC Morphology Not Reportable 10/04/16 07:20 Dimorphic RBCs Not Reportable 10/04/16 07:20 Polychromasia Not Reportable 10/04/16 07:20 Hypochromasia Not Reportable 10/04/16 07:20 Poikilocytosis Not Reportable 10/04/16 07:20 Anisocytosis 1+ 10/04/16 07:20 Microcytosis Not Reportable 10/04/16 07:20 Macrocytosis Not Reportable 10/04/16 07:20 Spherocytes Not Reportable 10/04/16 07:20 Pappenheimer Bodies Not Reportable 10/04/16 07:20 Sickle Cells Not Reportable 10/04/16 07:20 Target Cells Not Reportable 10/04/16 07:20 Tear Drop Cells 1+ 10/04/16 07:20 Ovalocytes 1+ 10/04/16 07:20 Helmet Cells Few 10/04/16 07:20 Harrell-[place] Bodies Not Reportable 10/04/16 07:20 [place] Rings Not Reportable 10/04/16 07:20 [place] Cells Not Reportable 10/04/16 07:20 Bite Cells Not Reportable 10/04/16 07:20 Crenated Cell Not Reportable 10/04/16 07:20 Elliptocytes Few 10/04/16 07:20 Acanthocytes (Spur) Not Reportable 10/04/16 07:20 Rouleaux Not Reportable 10/04/16 07:20 Hemoglobin C Crystals Not Reportable 10/04/16 07:20 Schistocytes Not Reportable 10/04/16 07:20 Malaria parasites Not Reportable 10/04/16 07:20 Philip Bodies Not Reportable 10/04/16 07:20 Hem Pathologist Commnt No 10/04/16 07:20 PT 14.7 Sec. (12.2-14.9) 10/04/16 07:20 INR 1.16 (0.87-1.13) H 10/04/16 07:20 APTT 26.2 Sec. (24.2-36.6) 10/04/16 07:20 D-Dimer 431.65 ng/mlDDU (0-234) H 10/04/16 07:20 POC ABG pH 7.433 (7.35-7.45) 10/04/16 15:47 POC ABG pCO2 36.6 (35-45) 10/04/16 15:47 POC ABG pO2 63 (80-105) L 10/04/16 15:47 POC ABG HCO3 24.4 10/04/16 15:47 POC ABG Total CO2 26 10/04/16 15:47 POC ABG O2 Sat 93 10/04/16 15:47 POC ABG Base Excess 0 10/04/16 15:47 FiO2 50 % 10/04/16 15:47 Sodium 143 mmol/L (137-145) 10/05/16 04:20 Potassium 4.0 mmol/L (3.6-5.0) 10/05/16 04:20 Chloride 102.4 mmol/L (98-107) 10/05/16 04:20 Carbon Dioxide 26 mmol/L (22-30) 10/05/16 04:20 Anion Gap 19 mmol/L 10/05/16 04:20 BUN 25 mg/dL (9-20) H 10/05/16 04:20 Creatinine 1.3 mg/dL (0.8-1.5) 10/05/16 04:20 Estimated GFR 55 ml/min 10/05/16 04:20 BUN/Creatinine Ratio 19.23 % 10/05/16 04:20 Glucose 105 mg/dL (75-100) H 10/05/16 04:20 POC Glucose 118 (70-105) H 10/05/16 05:03 Lactic Acid 2.0 mmol/L (0.7-2.0) 10/04/16 07:28 Calcium 8.5 mg/dL (8.4-10.2) 10/05/16 04:20 Magnesium 2.0 mg/dL (1.7-2.3) 10/04/16 07:20 Total Bilirubin 0.3 mg/dL (0.1-1.2) 10/04/16 07:20 AST 22 units/L (5-40) 10/04/16 07:20 ALT 22 units/L (7-56) 10/04/16 07:20 Alkaline Phosphatase 64 units/L (35-129) 10/04/16 07:20 Total Creatine Kinase 131 units/L (55-170) 10/04/16 07:20 CK-MB (CK-2) 6.2 ng/mL (0.0-4.0) H 10/04/16 07:20 CK-MB (CK-2) Rel Index 4.7 (0-4) H 10/04/16 07:20 Troponin T 0.023 ng/mL (0.00-0.029) 10/04/16 13:39 NT-Pro-B Natriuret Pep 6962 pg/mL (0-900) H 10/04/16 07:20 Total Protein 6.4 g/dL (6.3-8.2) 10/04/16 07:20 Albumin 3.8 g/dL (3.9-5) L 10/04/16 07:20 Albumin/Globulin Ratio 1.5 % 10/04/16 07:20 Urine Color Straw (Yellow) 10/04/16 17:05 Urine Turbidity Clear (Clear) 10/04/16 17:05 Urine pH 5.0 (5.0-7.0) 10/04/16 17:05 Ur Specific [place] 1.024 (1.003-1.030) 10/04/16 17:05 Urine Protein 100 mg/dl mg/dL (Negative) 10/04/16 17:05 Urine Glucose (UA) Neg mg/dL (Negative) 10/04/16 17:05 Urine Ketones Neg mg/dL (Negative) 10/04/16 17:05 Urine Blood Neg (Negative) 10/04/16 17:05 Urine Nitrite Neg (Negative) 10/04/16 17:05 Urine Bilirubin Neg (Negative) 10/04/16 17:05 Urine Urobilinogen < 2.0 mg/dL (<2.0) 10/04/16 17:05 Ur Leukocyte Esterase Neg (Negative) 10/04/16 17:05 Urine WBC (Auto) < 1.0 /HPF (0.0-6.0) 10/04/16 17:05 Urine RBC (Auto) < 1.0 /HPF (0.0-6.0) 10/04/16 17:05 Urine Mucus Few /HPF 10/04/16 17:05 - Imaging and Cardiology Chest x-ray: image reviewed (congestion)
[2016-10-05] MEDS: VITAMIN D3 PO SCH (10:28)
[2016-10-05] MEDS: HALFPRIN EC PO SCH (10:28)
[2016-10-05] MEDS: MAG-OX PO SCH (10:29)
[2016-10-05] MEDS: PLAVIX PO SCH (10:29)
[2016-10-05] MEDS: K-DUR PO SCH (10:30)
[2016-10-05] MEDS: LOPRESSOR PO SCH ×2 (10:31→21:32)
[2016-10-05] MEDS: HEPARIN SUB-Q SCH ×2 (10:47→21:33)
--- NOTE | 2016-10-05 11:30 | Progress Note ---
Assessment and Plan Acute hypoxic respiratory failure CHF exacerbation, systolic Right pleural effusion Anemia Hx of ischemic cardiomyopathy EF 30-35% on echo 06/2016 Hx of CAD s/p 3v CABG 08/2015 Diabetes mellitus Hypertension Hx of tracheostomy Obstructive sleep apnea Recommendations: Continue IV diuretics, beta blockers, afterload reducing agents and oral antiplatelet therapy for systolic heart failure. Subjective Date of service: 10/05/16 Interval history: Patient reports shortness of breath has lessen since admission. Currently on oxygen via venturi mask. Objective Vital Signs Temp Pulse Pulse Pulse Pulse Pulse Resp 10/05/16 10:31 83 10/05/16 09:00 88 19 10/05/16 08:00 97.9 F 82 22 10/05/16 07:17 78 10/05/16 07:12 10/05/16 07:05 83 10/05/16 07:03 10/05/16 07:00 74 19 10/05/16 06:10 75 29 H 10/05/16 06:00 77 13 10/05/16 05:00 71 20 10/05/16 04:00 69 15 10/05/16 03:50 97.5 F L 10/05/16 03:00 68 18 10/05/16 02:15 67 67 22 10/05/16 02:00 68 66 68 23 10/05/16 01:00 69 23 10/05/16 00:22 69 21 10/05/16 00:00 75 15 10/04/16 23:54 10/04/16 23:27 97.3 F L 10/04/16 23:00 69 19 10/04/16 22:00 72 19 10/04/16 21:22 76 10/04/16 21:00 74 14 10/04/16 20:00 70 18 10/04/16 19:55 71 24 10/04/16 19:53 70 10/04/16 19:52 97.8 F 10/04/16 19:40 76 10/04/16 19:15 67 10/04/16 19:00 71 22 10/04/16 18:10 74 20 10/04/16 18:00 74 20 10/04/16 17:50 75 21 10/04/16 17:40 76 30 H 10/04/16 17:30 75 20 10/04/16 17:24 75 10/04/16 17:20 77 23 10/04/16 17:10 83 16 10/04/16 17:00 85 19 10/04/16 16:50 82 21 10/04/16 16:40 76 24 10/04/16 16:30 77 29 H 10/04/16 16:20 87 24 10/04/16 16:10 82 19 10/04/16 16:02 80 10/04/16 16:01 81 10/04/16 16:00 81 25 H 10/04/16 15:52 79 10/04/16 15:50 82 25 H 10/04/16 15:47 80 30 H 10/04/16 15:40 77 26 H 10/04/16 15:30 80 27 H 10/04/16 15:20 80 25 H 10/04/16 15:10 81 26 H 10/04/16 15:00 85 23 10/04/16 14:50 81 29 H 10/04/16 14:40 83 22 10/04/16 14:33 15 10/04/16 14:30 83 22 10/04/16 14:27 82 44 H 10/04/16 14:20 81 43 H 10/04/16 14:10 85 20 10/04/16 14:00 88 19 10/04/16 13:50 84 16 10/04/16 13:40 87 23 10/04/16 13:32 102 H 21 10/04/16 13:10 98.1 F 87 20 Resp Resp Resp Resp BP BP Pulse Ox 10/05/16 10:31 141/66 10/05/16 09:00 160/77 80 L 10/05/16 08:00 160/77 91 10/05/16 07:17 23 10/05/16 07:12 93 10/05/16 07:05 20 10/05/16 07:03 94 10/05/16 07:00 144/81 94 10/05/16 06:10 96 10/05/16 06:00 156/81 96 10/05/16 05:00 156/81 94 10/05/16 04:00 148/78 92 10/05/16 03:50 10/05/16 03:00 145/71 97 10/05/16 02:15 20 142/74 100 10/05/16 02:00 22 142/74 99 10/05/16 01:00 144/81 99 10/05/16 00:22 144/76 100 10/05/16 00:00 144/76 100 10/04/16 23:54 20 10/04/16 23:27 10/04/16 23:00 144/76 100 10/04/16 22:00 139/76 100 10/04/16 21:22 145/73 10/04/16 21:00 142/78 97 10/04/16 20:00 147/78 99 10/04/16 19:55 145/81 99 10/04/16 19:53 17 10/04/16 19:52 10/04/16 19:40 17 10/04/16 19:15 10/04/16 19:00 145/81 99 10/04/16 18:10 151/84 100 10/04/16 18:00 147/78 99 10/04/16 17:50 151/84 100 10/04/16 17:40 151/84 100 10/04/16 17:30 151/84 100 10/04/16 17:24 151/84 10/04/16 17:20 151/84 100 10/04/16 17:10 151/84 100 10/04/16 17:00 151/84 99 10/04/16 16:50 138/72 100 10/04/16 16:40 138/72 100 10/04/16 16:30 138/72 100 10/04/16 16:20 138/72 99 10/04/16 16:10 138/72 100 10/04/16 16:02 100 10/04/16 16:01 27 H 10/04/16 16:00 142/77 99 10/04/16 15:52 30 H 10/04/16 15:50 138/72 100 10/04/16 15:47 138/72 100 10/04/16 15:40 138/72 100 10/04/16 15:30 138/72 100 10/04/16 15:20 138/72 99 10/04/16 15:10 138/72 100 10/04/16 15:00 138/72 98 10/04/16 14:50 150/76 99 10/04/16 14:40 150/76 99 10/04/16 14:33 10/04/16 14:30 150/76 100 10/04/16 14:27 100 10/04/16 14:20 150/76 99 10/04/16 14:10 150/76 98 10/04/16 14:00 150/76 97 10/04/16 13:50 150/76 99 10/04/16 13:40 97 10/04/16 13:32 97 10/04/16 13:10 107/53 99 - Physical Examination General: No Apparent Distress HEENT: Positive: PERRL Neck: Positive: trachea midline Cardiac: Positive: Reg Rate and Rhythm Lungs: Positive: Decreased Breath Sounds - Labs and Meds CBC 10/05/16 Range/Units 04:20 WBC 6.4 (4.5-11.0) K/mm3 RBC 3.62 L (3.65-5.03) M/mm3 Hgb 9.0 L (11.8-15.2) gm/dl Hct 28.0 L (35.5-45.6) % Plt Count 326 (140-440) K/mm3 Lymph # 1.1 L (1.2-5.4) K/mm3 [place] # 0.5 (0.0-0.8) K/mm3 Eos # 0.0 (0.0-0.4) K/mm3 Baso # 0.0 (0.0-0.1) K/mm3 Comprehensive Metabolic Panel 10/05/16 Range/Units 04:20 Sodium 143 (137-145) mmol/L Potassium 4.0 (3.6-5.0) mmol/L Chloride 102.4 (98-107) mmol/L Carbon Dioxide 26 (22-30) mmol/L BUN 25 H (9-20) mg/dL Creatinine 1.3 (0.8-1.5) mg/dL Glucose 105 H (75-100) mg/dL Calcium 8.5 (8.4-10.2) mg/dL - Imaging and Cardiology EKG: image reviewed (sinus tachycardia)
[2016-10-05] MEDS: PULMICORT IH SCH (19:35)
[2016-10-05] MEDS: BROVANA NEBU IH SCH (19:35)
[2016-10-06] MEDS ORDERED: APRESOLINE IV ONE (02:22)
[2016-10-06] MEDS: DUONEB 0.5 MG-3 MG/3 ML SOLN IH SCH ×4 (03:34→19:54)
[2016-10-06 05:25] LABS: Hematocrit 32.2 % (35.5-45.6); Hemoglobin 10.2 gm/dl (11.8-15.2); Mean Corpuscular HGB Conc 32 % (32-34); Mean Corpuscular Volume 78 fl (84-94); Platelet Count 393 K/mm3 (140-440); Red Blood Count 4.11 M/mm3 (3.65-5.03); Red Cell Distribution Width 18.4 % (13.2-15.2); White Blood Count 9.9 K/mm3 (4.5-11.0)
[2016-10-06 05:26] LABS: Mean Corpuscular Hemoglobin 25 pg (28-32)
[2016-10-06] MEDS: LASIX IV SCH ×2 (05:35→17:58)
[2016-10-06 05:48] LABS: BUN/Creatinine Ratio 19.23; Calcium 8.6 mg/dL (8.4-10.2); Chloride 102.4 mmol/L (98-107); Potassium 3.5 mmol/L (3.6-5.0)
[2016-10-06] MEDS: NOVOLOG SUB-Q SCH ×5 (06:22→23:43)
[2016-10-06] MEDS: PULMICORT IH SCH ×2 (07:56→19:55)
[2016-10-06] MEDS: BROVANA NEBU IH SCH ×2 (07:56→20:17)
--- NOTE | 2016-10-06 08:52 | Progress Note ---
Assessment and Plan - Patient Problems (1) Congestive heart failure Current Visit: Yes Status: Acute Qualifiers: Congestive heart failure type: unspecified congestive heart failure type Congestive heart failure chronicity: acute on chronic Qualified Code(s): I50.9 - Heart failure, unspecified Plan to address problem: Patient evaluated by cardiology. Ejection fraction 30%. Continue meds (2) Acute and chronic respiratory failure with hypoxia Current Visit: No Status: Acute Plan to address problem: Patient will be evaluated by pulmonary to determine whether patient had taken off BiPAP (3) Hypertension Current Visit: No Status: Chronic Qualifiers: Hypertension type: H Plan to address problem: Blood pressure well controlled (4) Type 2 diabetes mellitus Current Visit: No Status: Chronic Qualifiers: Diabetes mellitus complication status: D Diabetes mellitus complication detail: D Diabetic retinopathy severity: D Proliferative retinopathy type: P Diabetes mellitus macular edema: D Diabetes mellitus terminologist insulin use : D Laterality: L Chronic kidney disease stage: C Plan to address problem: Accu/ ADA diet/ SSI History Interval history: Patient has severe shortness of breath and requiring BiPAP Hospitalist Physical - Constitutional Vitals: Temp Pulse Resp BP Pulse Ox 97.8 F 79 32 H 165/82 99 10/06/16 08:00 10/06/16 07:59 10/06/16 07:59 10/06/16 07:52 10/06/16 07:58 General appearance: Present: mild distress - EENT Eyes: Present: PERRL, EOM intact ENT: hearing intact, clear oral mucosa - Neck Neck: Present: supple, normal ROM - Respiratory Respiratory effort: normal Respiratory: bilateral: rhonchi - Cardiovascular Rhythm: regular Heart Sounds: Present: S1 & S2 - Abdominal General gastrointestinal: soft, non-tender, non-distended, normal bowel sounds - Psychiatric Psychiatric: appropriate mood/affect, intact judgment & insight - Neurologic Neurologic: CNII-XII intact, moves all extremities Results - Labs CBC & Chem 7: 10/06/16 04:31 10/06/16 04:31 Labs: Laboratory Last Values WBC 9.9 K/mm3 (4.5-11.0) 10/06/16 04:31 RBC 4.11 M/mm3 (3.65-5.03) 10/06/16 04:31 Hgb 10.2 gm/dl (11.8-15.2) L 10/06/16 04:31 Hct 32.2 % (35.5-45.6) L 10/06/16 04:31 MCV 78 fl (84-94) L 10/06/16 04:31 MCH 25 pg (28-32) L 10/06/16 04:31 MCHC 32 % (32-34) 10/06/16 04:31 RDW 18.4 % (13.2-15.2) H 10/06/16 04:31 Plt Count 393 K/mm3 (140-440) 10/06/16 04:31 Lymph % (Auto) 16.7 % (13.4-35.0) 10/05/16 04:20 [place] % (Auto) 7.3 % (0.0-7.3) 10/05/16 04:20 Eos % (Auto) 0.4 % (0.0-4.3) 10/05/16 04:20 Baso % (Auto) 0.5 % (0.0-1.8) 10/05/16 04:20 Lymph # 1.1 K/mm3 (1.2-5.4) L 10/05/16 04:20 [place] # 0.5 K/mm3 (0.0-0.8) 10/05/16 04:20 Eos # 0.0 K/mm3 (0.0-0.4) 10/05/16 04:20 Baso # 0.0 K/mm3 (0.0-0.1) 10/05/16 04:20 Add Manual Diff Complete 10/04/16 07:20 Total Counted 100 10/04/16 07:20 Seg Neutrophils % 75.1 % (40.0-70.0) H 10/05/16 04:20 Seg Neuts % (Manual) 96.0 % (40.0-70.0) H 10/04/16 07:20 Band Neutrophils % 0 % 10/04/16 07:20 Lymphocytes % (Manual) 3.0 % (13.4-35.0) L 10/04/16 07:20 Reactive Lymphs % (Man) 0 % 10/04/16 07:20 Monocytes % (Manual) 1.0 % (0.0-7.3) 10/04/16 07:20 Eosinophils % (Manual) 0 % (0.0-4.3) 10/04/16 07:20 Basophils % (Manual) 0 % (0.0-1.8) 10/04/16 07:20 Metamyelocytes % 0 % 10/04/16 07:20 Myelocytes % 0 % 10/04/16 07:20 Promyelocytes % 0 % 10/04/16 07:20 Blast Cells % 0 % 10/04/16 07:20 Nucleated RBC % Not Reportable 10/04/16 07:20 Seg Neutrophils # 4.8 K/mm3 (1.8-7.7) 10/05/16 04:20 Seg Neutrophils # Man 10.0 K/mm3 (1.8-7.7) H 10/04/16 07:20 Band Neutrophils # 0.0 K/mm3 10/04/16 07:20 Lymphocytes # (Manual) 0.3 K/mm3 (1.2-5.4) L 10/04/16 07:20 Abs React Lymphs (Man) 0.0 K/mm3 10/04/16 07:20 Monocytes # (Manual) 0.1 K/mm3 (0.0-0.8) 10/04/16 07:20 Eosinophils # (Manual) 0.0 K/mm3 (0.0-0.4) 10/04/16 07:20 Basophils # (Manual) 0.0 K/mm3 (0.0-0.1) 10/04/16 07:20 Metamyelocytes # 0.0 K/mm3 10/04/16 07:20 Myelocytes # 0.0 K/mm3 10/04/16 07:20 Promyelocytes # 0.0 K/mm3 10/04/16 07:20 Blast Cells # 0.0 K/mm3 10/04/16 07:20 WBC Morphology Not Reportable 10/04/16 07:20 Hypersegmented Neuts Not Reportable 10/04/16 07:20 Hyposegmented Neuts Not Reportable 10/04/16 07:20 Hypogranular Neuts Not Reportable 10/04/16 07:20 Smudge Cells Not Reportable 10/04/16 07:20 Toxic Granulation Not Reportable 10/04/16 07:20 Toxic Vacuolation Not Reportable 10/04/16 07:20 Dohle Bodies Not Reportable 10/04/16 07:20 Pelger-Huet Anomaly Not Reportable 10/04/16 07:20 Johanna Rods Not Reportable 10/04/16 07:20 Platelet Estimate Appears normal 10/04/16 07:20 Clumped Platelets Not Reportable 10/04/16 07:20 Plt Clumps, EDTA Not Reportable 10/04/16 07:20 Large Platelets Rare 10/04/16 07:20 Giant Platelets Not Reportable 10/04/16 07:20 Platelet Satelliting Not Reportable 10/04/16 07:20 Plt Morphology Comment Not Reportable 10/04/16 07:20 RBC Morphology Not Reportable 10/04/16 07:20 Dimorphic RBCs Not Reportable 10/04/16 07:20 Polychromasia Not Reportable 10/04/16 07:20 Hypochromasia Not Reportable 10/04/16 07:20 Poikilocytosis Not Reportable 10/04/16 07:20 Anisocytosis 1+ 10/04/16 07:20 Microcytosis Not Reportable 10/04/16 07:20 Macrocytosis Not Reportable 10/04/16 07:20 Spherocytes Not Reportable 10/04/16 07:20 Pappenheimer Bodies Not Reportable 10/04/16 07:20 Sickle Cells Not Reportable 10/04/16 07:20 Target Cells Not Reportable 10/04/16 07:20 Tear Drop Cells 1+ 10/04/16 07:20 Ovalocytes 1+ 10/04/16 07:20 Helmet Cells Few 10/04/16 07:20 [place] Bodies Not Reportable 10/04/16 07:20 [place] Rings Not Reportable 10/04/16 07:20 [place] Cells Not Reportable 10/04/16 07:20 Bite Cells Not Reportable 10/04/16 07:20 Crenated Cell Not Reportable 10/04/16 07:20 Elliptocytes Few 10/04/16 07:20 Acanthocytes (Spur) Not Reportable 10/04/16 07:20 Rouleaux Not Reportable 10/04/16 07:20 Hemoglobin C Crystals Not Reportable 10/04/16 07:20 Schistocytes Not Reportable 10/04/16 07:20 Malaria parasites Not Reportable 10/04/16 07:20 Philip Bodies Not Reportable 10/04/16 07:20 Hem Pathologist Commnt No 10/04/16 07:20 PT 14.7 Sec. (12.2-14.9) 10/04/16 07:20 INR 1.16 (0.87-1.13) H 10/04/16 07:20 APTT 26.2 Sec. (24.2-36.6) 10/04/16 07:20 D-Dimer 431.65 ng/mlDDU (0-234) H 10/04/16 07:20 POC ABG pH 7.433 (7.35-7.45) 10/04/16 15:47 POC ABG pCO2 36.6 (35-45) 10/04/16 15:47 POC ABG pO2 63 (80-105) L 10/04/16 15:47 POC ABG HCO3 24.4 10/04/16 15:47 POC ABG Total CO2 26 10/04/16 15:47 POC ABG O2 Sat 93 10/04/16 15:47 POC ABG Base Excess 0 10/04/16 15:47 FiO2 50 % 10/04/16 15:47 Sodium 145 mmol/L (137-145) 10/06/16 04:31 Potassium 3.5 mmol/L (3.6-5.0) L 10/06/16 04:31 Chloride 102.4 mmol/L (98-107) 10/06/16 04:31 Carbon Dioxide 27 mmol/L (22-30) 10/06/16 04:31 Anion Gap 19 mmol/L 10/06/16 04:31 BUN 25 mg/dL (9-20) H 10/06/16 04:31 Creatinine 1.3 mg/dL (0.8-1.5) 10/06/16 04:31 Estimated GFR 55 ml/min 10/06/16 04:31 BUN/Creatinine Ratio 19.23 % 10/06/16 04:31 Glucose 141 mg/dL (75-100) H 10/06/16 04:31 POC Glucose 143 (70-105) H 10/06/16 05:52 Lactic Acid 2.0 mmol/L (0.7-2.0) 10/04/16 07:28 Calcium 8.6 mg/dL (8.4-10.2) 10/06/16 04:31 Magnesium 2.0 mg/dL (1.7-2.3) 10/04/16 07:20 Total Bilirubin 0.3 mg/dL (0.1-1.2) 10/04/16 07:20 AST 22 units/L (5-40) 10/04/16 07:20 ALT 22 units/L (7-56) 10/04/16 07:20 Alkaline Phosphatase 64 units/L (35-129) 10/04/16 07:20 Total Creatine Kinase 131 units/L (55-170) 10/04/16 07:20 CK-MB (CK-2) 6.2 ng/mL (0.0-4.0) H 10/04/16 07:20 CK-MB (CK-2) Rel Index 4.7 (0-4) H 10/04/16 07:20 Troponin T 0.023 ng/mL (0.00-0.029) 10/04/16 13:39 NT-Pro-B Natriuret Pep 6962 pg/mL (0-900) H 10/04/16 07:20 Total Protein 6.4 g/dL (6.3-8.2) 10/04/16 07:20 Albumin 3.8 g/dL (3.9-5) L 10/04/16 07:20 Albumin/Globulin Ratio 1.5 % 10/04/16 07:20 Urine Color Straw (Yellow) 10/04/16 17:05 Urine Turbidity Clear (Clear) 10/04/16 17:05 Urine pH 5.0 (5.0-7.0) 10/04/16 17:05 Ur Specific [place] 1.024 (1.003-1.030) 10/04/16 17:05 Urine Protein 100 mg/dl mg/dL (Negative) 10/04/16 17:05 Urine Glucose (UA) Neg mg/dL (Negative) 10/04/16 17:05 Urine Ketones Neg mg/dL (Negative) 10/04/16 17:05 Urine Blood Neg (Negative) 10/04/16 17:05 Urine Nitrite Neg (Negative) 10/04/16 17:05 Urine Bilirubin Neg (Negative) 10/04/16 17:05 Urine Urobilinogen < 2.0 mg/dL (<2.0) 10/04/16 17:05 Ur Leukocyte Esterase Neg (Negative) 10/04/16 17:05 Urine WBC (Auto) < 1.0 /HPF (0.0-6.0) 10/04/16 17:05 Urine RBC (Auto) < 1.0 /HPF (0.0-6.0) 10/04/16 17:05 Urine Mucus Few /HPF 10/04/16 17:05
[2016-10-06] MEDS: HALFPRIN EC PO SCH (10:00)
[2016-10-06] MEDS: MAG-OX PO SCH (10:00)
[2016-10-06] MEDS: K-DUR PO SCH (10:00)
[2016-10-06] MEDS: PLAVIX PO SCH (10:00)
[2016-10-06] MEDS: HEPARIN SUB-Q SCH ×2 (10:00→21:03)
[2016-10-06] MEDS: LOPRESSOR PO SCH ×2 (10:00→21:03)
[2016-10-06] MEDS: VITAMIN D3 PO SCH (10:00)
--- NOTE | 2016-10-06 10:03 | Progress Note ---
Assessment and Plan Acute hypoxic respiratory failure CHF exacerbation, systolic Right pleural effusion Anemia Hx of ischemic cardiomyopathy EF 30-35% on echo 06/2016 Hx of CAD s/p 3v CABG 08/2015 Diabetes mellitus Hypertension Hx of tracheostomy Obstructive sleep apnea Recommendations: Continue IV diuretics, beta blockers, afterload reducing agents and oral antiplatelet therapy for systolic heart failure. Ok for transfer to telemetry cardiac siegel. Subjective Date of service: 10/06/16 Interval history: Patient resting in bed comfortably. Currently on Bipap therapy. Objective Vital Signs Temp Pulse Pulse Pulse Pulse Pulse Resp 10/06/16 09:00 67 21 10/06/16 08:01 18 10/06/16 08:00 97.8 F 69 19 10/06/16 07:59 79 10/06/16 07:58 73 10/06/16 07:52 86 26 H 10/06/16 07:00 72 20 10/06/16 06:00 76 19 10/06/16 05:00 73 18 10/06/16 04:00 98.6 F 74 16 10/06/16 03:42 74 10/06/16 03:35 73 20 10/06/16 03:30 72 73 20 10/06/16 03:00 76 27 H 10/06/16 02:40 81 10/06/16 02:30 81 25 H 10/06/16 02:00 75 19 10/06/16 01:00 85 21 10/06/16 00:00 98.1 F 81 21 10/05/16 23:00 90 15 10/05/16 22:09 10/05/16 22:02 84 18 10/05/16 22:00 77 20 10/05/16 21:32 84 10/05/16 21:30 87 33 H 10/05/16 21:00 92 H 21 10/05/16 20:30 90 19 10/05/16 20:10 95 H 13 10/05/16 20:03 94 H 10/05/16 20:01 98 H 16 10/05/16 20:00 96 H 27 H 10/05/16 19:56 97.8 F 10/05/16 19:52 99 H 99 H 10/05/16 19:50 100 H 22 10/05/16 19:41 10/05/16 19:40 100 H 35 H 10/05/16 19:37 101 H 101 H 10/05/16 19:00 95 H 14 10/05/16 18:06 95 H 20 10/05/16 18:00 97 H 70 18 10/05/16 17:00 95 H 24 10/05/16 16:00 98.3 F 81 41 H 10/05/16 15:00 89 23 10/05/16 14:22 86 10/05/16 14:11 85 10/05/16 14:00 87 68 20 10/05/16 13:00 92 H 24 10/05/16 12:00 97.5 F L 82 16 10/05/16 11:00 84 22 10/05/16 10:31 83 Resp Resp Resp Resp BP Pulse Ox 10/06/16 09:00 124/70 99 10/06/16 08:01 100 10/06/16 08:00 160/76 100 10/06/16 07:59 32 H 10/06/16 07:58 26 H 99 10/06/16 07:52 165/82 98 10/06/16 07:00 182/74 98 10/06/16 06:00 173/81 96 10/06/16 05:00 164/77 99 10/06/16 04:00 165/87 99 10/06/16 03:42 19 10/06/16 03:35 165/87 100 10/06/16 03:30 21 165/87 100 10/06/16 03:00 165/87 100 10/06/16 02:40 180/95 10/06/16 02:30 180/95 94 10/06/16 02:00 170/103 99 10/06/16 01:00 170/103 98 10/06/16 00:00 178/95 98 10/05/16 23:00 174/91 88 10/05/16 22:09 23 10/05/16 22:02 172/90 99 10/05/16 22:00 158/94 98 10/05/16 21:32 158/94 10/05/16 21:30 158/94 97 10/05/16 21:00 158/94 97 10/05/16 20:30 159/88 98 10/05/16 20:10 159/88 98 10/05/16 20:03 10/05/16 20:01 95 10/05/16 20:00 181/92 92 10/05/16 19:56 10/05/16 19:52 24 24 10/05/16 19:50 171/100 94 10/05/16 19:41 86 10/05/16 19:40 171/100 79 L 10/05/16 19:37 29 H 29 H 10/05/16 19:00 144/79 99 10/05/16 18:06 92 10/05/16 18:00 190/100 96 10/05/16 17:00 169/123 85 10/05/16 16:00 161/81 84 10/05/16 15:00 157/83 89 10/05/16 14:22 24 10/05/16 14:11 24 10/05/16 14:00 157/83 91 10/05/16 13:00 155/75 81 L 10/05/16 12:00 159/83 90 10/05/16 11:00 153/80 93 10/05/16 10:31 141/66 - Physical Examination General: No Apparent Distress HEENT: Positive: PERRL Cardiac: Positive: Other (paced) - Labs and Meds CBC 10/06/16 Range/Units 04:31 WBC 9.9 (4.5-11.0) K/mm3 RBC 4.11 (3.65-5.03) M/mm3 Hgb 10.2 L (11.8-15.2) gm/dl Hct 32.2 L (35.5-45.6) % Plt Count 393 (140-440) K/mm3 Comprehensive Metabolic Panel 10/06/16 Range/Units 04:31 Sodium 145 (137-145) mmol/L Potassium 3.5 L (3.6-5.0) mmol/L Chloride 102.4 (98-107) mmol/L Carbon Dioxide 27 (22-30) mmol/L BUN 25 H (9-20) mg/dL Creatinine 1.3 (0.8-1.5) mg/dL Glucose 141 H (75-100) mg/dL Calcium 8.6 (8.4-10.2) mg/dL - Imaging and Cardiology EKG: image reviewed (sinus tachycardia)
--- NOTE | 2016-10-06 13:49 | XRay Report ---
Single view chest: Compared to 10/04/16. History: Hypoxemia. Findings: Marked cardiomegaly. Trachea is midline. Bilateral decrease in airspace opacities by approximately 60-70% compared to previous study. Impression: Findings as detailed above.
--- NOTE | 2016-10-06 16:33 | Progress Note ---
Assessment and Plan 71 y/o male with acute on chronic respiratory failure secondary to acute exacerbation of systolic heart failure. 1 . Daily net negative state 2. BP and rate control 3. Continue BID pulmicort and brovana 4. Hold transfer for now. Repeat CXR and ABG in am. Subjective Date of service: 10/06/16 Interval history: Unable to be weaned from bipap this am. had desaturations. no respiratory distress. No family at bedside. Objective Vital Signs - 12hr 10/06/16 10/06/16 10/06/16 05:00 06:00 07:00 Temperature Pulse Rate 73 76 72 Pulse Rate [ Anterior Bilateral Upper Lobe] Pulse Rate [ From Monitor] Respiratory 18 19 20 Rate Respiratory Rate [Anterior Bilateral Upper Lobe] Blood Pressure 164/77 173/81 182/74 O2 Sat by Pulse 99 96 98 Oximetry 10/06/16 10/06/16 10/06/16 07:52 07:58 07:59 Temperature Pulse Rate 86 Pulse Rate [ 73 79 Anterior Bilateral Upper Lobe] Pulse Rate [ From Monitor] Respiratory 26 H Rate Respiratory 26 H 32 H Rate [Anterior Bilateral Upper Lobe] Blood Pressure 165/82 O2 Sat by Pulse 98 99 Oximetry 10/06/16 10/06/16 10/06/16 08:00 08:01 09:00 Temperature 97.8 F Pulse Rate 69 67 Pulse Rate [ Anterior Bilateral Upper Lobe] Pulse Rate [ 70 From Monitor] Respiratory 19 18 21 Rate Respiratory Rate [Anterior Bilateral Upper Lobe] Blood Pressure 160/76 124/70 O2 Sat by Pulse 100 100 99 Oximetry 10/06/16 10/06/16 10/06/16 10:00 11:00 12:00 Temperature 98.9 F Pulse Rate 78 76 73 Pulse Rate [ Anterior Bilateral Upper Lobe] Pulse Rate [ From Monitor] Respiratory 21 10 L 20 Rate Respiratory Rate [Anterior Bilateral Upper Lobe] Blood Pressure 165/97 164/80 172/87 O2 Sat by Pulse 100 100 100 Oximetry 10/06/16 10/06/16 10/06/16 13:00 13:50 13:57 Temperature Pulse Rate 83 Pulse Rate [ 72 68 Anterior Bilateral Upper Lobe] Pulse Rate [ From Monitor] Respiratory 15 Rate Respiratory 16 16 Rate [Anterior Bilateral Upper Lobe] Blood Pressure 172/87 O2 Sat by Pulse 87 Oximetry 10/06/16 14:04 Temperature Pulse Rate Pulse Rate [ Anterior Bilateral Upper Lobe] Pulse Rate [ From Monitor] Respiratory Rate Respiratory Rate [Anterior Bilateral Upper Lobe] Blood Pressure O2 Sat by Pulse 99 Oximetry Constitutional: no acute distress, alert Eyes: non-icteric Ascultation: Bilateral: diminished breath sounds Percussion: Bilateral: not dull Cardiovascular: regular rate and rhythm Gastrointestinal: normoactive bowel sounds Extremities: no edema CBC and BMP: 10/06/16 04:31 10/06/16 04:31 ABG, PT/INR, D-dimer: ABG POC ABG pH 7.433 (7.35-7.45) 10/04/16 15:47 POC ABG pCO2 36.6 (35-45) 10/04/16 15:47 POC ABG pO2 63 (80-105) L 10/04/16 15:47 POC ABG HCO3 24.4 10/04/16 15:47 POC ABG Total CO2 26 10/04/16 15:47 POC ABG O2 Sat 93 10/04/16 15:47 PT/INR, D-dimer PT 14.7 Sec. (12.2-14.9) 10/04/16 07:20 INR 1.16 (0.87-1.13) H 10/04/16 07:20 D-Dimer 431.65 ng/mlDDU (0-234) H 10/04/16 07:20 Abnormal lab findings: Abnormal Labs 10/04/16 10/04/16 10/04/16 13:20 15:47 17:01 RBC Hgb Hct MCV MCH RDW Lymph # Seg Neutrophils % POC ABG pO2 63 L Potassium BUN Glucose POC Glucose 226 H 165 H 10/04/16 10/05/16 10/05/16 23:04 04:20 04:20 RBC 3.62 L Hgb 9.0 L Hct 28.0 L MCV 78 L MCH 25 L RDW 18.3 H Lymph # 1.1 L Seg Neutrophils % 75.1 H POC ABG pO2 Potassium BUN 25 H Glucose 105 H POC Glucose 124 H 10/05/16 10/05/16 10/05/16 05:03 10:25 11:42 RBC Hgb Hct MCV MCH RDW Lymph # Seg Neutrophils % POC ABG pO2 Potassium BUN Glucose POC Glucose 118 H 180 H 195 H 10/05/16 10/05/16 10/06/16 17:20 23:31 04:31 RBC Hgb 10.2 L Hct 32.2 L MCV 78 L MCH 25 L RDW 18.4 H Lymph # Seg Neutrophils % POC ABG pO2 Potassium BUN Glucose POC Glucose 215 H 144 H 10/06/16 10/06/16 10/06/16 04:31 05:52 11:27 RBC Hgb Hct MCV MCH RDW Lymph # Seg Neutrophils % POC ABG pO2 Potassium 3.5 L BUN 25 H Glucose 141 H POC Glucose 143 H 136 H Chest x-ray: image reviewed (mild congestion remains)
[2016-10-07] MEDS: DUONEB 0.5 MG-3 MG/3 ML SOLN IH SCH ×4 (02:05→20:11)
[2016-10-07 05:20] LABS: ISTAT Base Excess 4; ISTAT HCO3 28.5; ISTAT PCO2 41.7 (35-45); ISTAT PH 7.443 (7.35-7.45); ISTAT PO2 110 (80-105); ISTAT SO2 98; ISTAT TCO2 30
[2016-10-07 05:23] LABS: Basophils % (Auto) 0.5 % (0.0-1.8); Eosinophils % (Auto) 4.8 % (0.0-4.3); Hemoglobin 9.9 gm/dl (11.8-15.2); Mean Corpuscular HGB Conc 32 % (32-34); Mean Corpuscular Volume 78 fl (84-94); Platelet Count 336 K/mm3 (140-440); Red Cell Distribution Width 18.3 % (13.2-15.2); White Blood Count 6.1 K/mm3 (4.5-11.0)
[2016-10-07] MEDS: LASIX IV SCH ×2 (05:25→17:19)
[2016-10-07] MEDS: NOVOLOG SUB-Q SCH ×3 (05:30→17:19)
[2016-10-07 05:35] LABS: Mean Corpuscular Hemoglobin 25 pg (28-32)
[2016-10-07 05:38] LABS: Albumin 3.4 g/dL (3.9-5); Albumin/Globulin Ratio 1.3 %; BUN/Creatinine Ratio 15.38; Bilirubin,Total 0.3 mg/dL (0.1-1.2); Calcium 7.9 mg/dL (8.4-10.2); Chloride 98.5 mmol/L (98-107); Potassium 3.1 mmol/L (3.6-5.0); Total Protein 6.1 g/dL (6.3-8.2)
--- NOTE | 2016-10-07 07:20 | XRay Report ---
Single view chest: Compared to 10/06/16. Next History: Hypoxemia. Findings: Cardiomegaly. Trachea is midline. Minimal left pleural effusion. No consolidation. Normal right CP angle. Impression: Cardiomegaly. Minimal left pleural effusion.
[2016-10-07] MEDS: BROVANA NEBU IH SCH ×2 (08:02→20:11)
[2016-10-07] MEDS: PULMICORT IH SCH ×2 (08:02→20:11)
--- NOTE | 2016-10-07 09:07 | Progress Note ---
Assessment and Plan 71 y/o male with acute on chronic respiratory failure secondary to acute exacerbation of systolic heart failure. 1 . Daily net negative state 2. BP and rate control 3. Continue BID pulmicort and brovana 4. CXR is stable. ABG is good. Ok with transfer to floor. Make sure that PPV is ordered for nightime use as well as PRN Subjective Date of service: 10/07/16 Interval history: No acute events overnight. ABG was done this morning. Adequate. No family at bedside. Objective Vital Signs - 12hr 10/06/16 10/06/16 10/06/16 22:00 23:00 23:38 Temperature Pulse Rate 80 67 63 Pulse Rate [ Anterior Bilateral Throughout] Respiratory 21 20 35 H Rate Respiratory Rate [Anterior Bilateral Throughout] Blood Pressure 159/94 150/81 150/81 O2 Sat by Pulse 97 98 100 Oximetry 10/06/16 10/07/16 10/07/16 23:44 00:00 01:00 Temperature 97.6 F Pulse Rate 70 69 Pulse Rate [ Anterior Bilateral Throughout] Respiratory 14 17 Rate Respiratory Rate [Anterior Bilateral Throughout] Blood Pressure 157/82 151/85 O2 Sat by Pulse 98 96 Oximetry 10/07/16 10/07/16 10/07/16 02:00 02:05 02:06 Temperature Pulse Rate 61 62 Pulse Rate [ 64 Anterior Bilateral Throughout] Respiratory 15 21 Rate Respiratory 21 Rate [Anterior Bilateral Throughout] Blood Pressure 159/80 159/80 O2 Sat by Pulse 100 100 Oximetry 10/07/16 10/07/16 10/07/16 02:20 03:00 04:00 Temperature Pulse Rate 73 66 Pulse Rate [ 63 Anterior Bilateral Throughout] Respiratory 13 15 Rate Respiratory 20 Rate [Anterior Bilateral Throughout] Blood Pressure 158/81 163/86 O2 Sat by Pulse 100 100 Oximetry 10/07/16 10/07/16 10/07/16 04:26 05:00 06:00 Temperature 97.8 F Pulse Rate 65 68 Pulse Rate [ Anterior Bilateral Throughout] Respiratory 17 16 Rate Respiratory Rate [Anterior Bilateral Throughout] Blood Pressure 148/74 150/75 O2 Sat by Pulse 100 92 Oximetry 10/07/16 10/07/16 10/07/16 07:00 07:57 08:00 Temperature 97.7 F Pulse Rate 66 Pulse Rate [ 66 Anterior Bilateral Throughout] Respiratory 17 Rate Respiratory 20 Rate [Anterior Bilateral Throughout] Blood Pressure 148/71 O2 Sat by Pulse 100 Oximetry 10/07/16 08:04 Temperature Pulse Rate Pulse Rate [ Anterior Bilateral Throughout] Respiratory Rate Respiratory Rate [Anterior Bilateral Throughout] Blood Pressure O2 Sat by Pulse 98 Oximetry Constitutional: no acute distress, alert Eyes: non-icteric Ascultation: Bilateral: diminished breath sounds Percussion: Bilateral: not dull Cardiovascular: regular rate and rhythm Gastrointestinal: normoactive bowel sounds Extremities: no edema CBC and BMP: 10/07/16 04:44 10/07/16 04:44 ABG, PT/INR, D-dimer: ABG POC ABG pH 7.443 (7.35-7.45) 10/07/16 05:12 POC ABG pCO2 41.7 (35-45) 10/07/16 05:12 POC ABG pO2 110 (80-105) H 10/07/16 05:12 POC ABG HCO3 28.5 10/07/16 05:12 POC ABG Total CO2 30 10/07/16 05:12 POC ABG O2 Sat 98 10/07/16 05:12 PT/INR, D-dimer PT 14.7 Sec. (12.2-14.9) 10/04/16 07:20 INR 1.16 (0.87-1.13) H 10/04/16 07:20 D-Dimer 431.65 ng/mlDDU (0-234) H 10/04/16 07:20 Abnormal lab findings: Abnormal Labs 10/04/16 10/04/16 10/04/16 13:20 15:47 17:01 RBC Hgb Hct MCV MCH RDW [place] % (Auto) Eos % (Auto) Lymph # Seg Neutrophils % POC ABG pO2 63 L Potassium BUN Glucose POC Glucose 226 H 165 H Calcium Total Protein Albumin 10/04/16 10/05/16 10/05/16 23:04 04:20 04:20 RBC 3.62 L Hgb 9.0 L Hct 28.0 L MCV 78 L MCH 25 L RDW 18.3 H [place] % (Auto) Eos % (Auto) Lymph # 1.1 L Seg Neutrophils % 75.1 H POC ABG pO2 Potassium BUN 25 H Glucose 105 H POC Glucose 124 H Calcium Total Protein Albumin 10/05/16 10/05/16 10/05/16 05:03 10:25 11:42 RBC Hgb Hct MCV MCH RDW [place] % (Auto) Eos % (Auto) Lymph # Seg Neutrophils % POC ABG pO2 Potassium BUN Glucose POC Glucose 118 H 180 H 195 H Calcium Total Protein Albumin 10/05/16 10/05/16 10/06/16 17:20 23:31 04:31 RBC Hgb 10.2 L Hct 32.2 L MCV 78 L MCH 25 L RDW 18.4 H [place] % (Auto) Eos % (Auto) Lymph # Seg Neutrophils % POC ABG pO2 Potassium BUN Glucose POC Glucose 215 H 144 H Calcium Total Protein Albumin 10/06/16 10/06/16 10/06/16 04:31 05:52 11:27 RBC Hgb Hct MCV MCH RDW [place] % (Auto) Eos % (Auto) Lymph # Seg Neutrophils % POC ABG pO2 Potassium 3.5 L BUN 25 H Glucose 141 H POC Glucose 143 H 136 H Calcium Total Protein Albumin 10/06/16 10/06/16 10/07/16 17:14 23:28 04:44 RBC Hgb 9.9 L Hct 31.0 L MCV 78 L MCH 25 L RDW 18.3 H [place] % (Auto) 7.4 H Eos % (Auto) 4.8 H Lymph # 1.0 L Seg Neutrophils % 70.4 H POC ABG pO2 Potassium BUN Glucose POC Glucose 126 H 143 H Calcium Total Protein Albumin 10/07/16 10/07/16 10/07/16 04:44 05:12 05:22 RBC Hgb Hct MCV MCH RDW [place] % (Auto) Eos % (Auto) Lymph # Seg Neutrophils % POC ABG pO2 110 H Potassium 3.1 L BUN Glucose 110 H POC Glucose 114 H Calcium 7.9 L Total Protein 6.1 L Albumin 3.4 L
[2016-10-07] MEDS: HALFPRIN EC PO SCH (09:28)
[2016-10-07] MEDS: VITAMIN D3 PO SCH (09:28)
[2016-10-07] MEDS: LOPRESSOR PO SCH ×2 (09:28→21:47)
[2016-10-07] MEDS: HEPARIN SUB-Q SCH ×2 (09:28→21:49)
[2016-10-07] MEDS: PLAVIX PO SCH (09:28)
[2016-10-07] MEDS: K-DUR PO SCH (09:29)
[2016-10-07] MEDS: MAG-OX PO SCH (09:29)
--- NOTE | 2016-10-07 09:55 | Progress Note ---
Assessment and Plan Acute hypoxic respiratory failure CHF exacerbation, systolic Right pleural effusion Anemia Hx of ischemic cardiomyopathy EF 30-35% on echo 06/2016 Hx of CAD s/p 3v CABG 08/2015 Diabetes mellitus Hypertension Hx of tracheostomy Obstructive sleep apnea Recommendations: Continue medical therapy for systolic heart failure and coronary artery disease. Stable cardiac siegel. Subjective Date of service: 10/07/16 Interval history: Patient resting in bed comfortably. Patient has no complaints. Objective Vital Signs Temp Pulse Pulse Pulse Resp Resp Resp 10/07/16 09:28 80 10/07/16 08:04 10/07/16 08:00 66 20 10/07/16 07:57 97.7 F 10/07/16 07:00 66 17 10/07/16 06:00 68 16 10/07/16 05:00 65 17 10/07/16 04:26 97.8 F 10/07/16 04:00 66 15 10/07/16 03:00 73 13 10/07/16 02:20 63 20 10/07/16 02:06 62 21 10/07/16 02:05 64 21 10/07/16 02:00 61 15 10/07/16 01:00 69 17 10/07/16 00:00 70 14 10/06/16 23:44 97.6 F 10/06/16 23:38 63 35 H 10/06/16 23:00 67 20 10/06/16 22:00 80 21 10/06/16 21:00 75 21 10/06/16 20:01 71 24 10/06/16 20:00 68 16 10/06/16 19:50 70 26 H 10/06/16 19:00 79 18 10/06/16 18:00 84 26 H 10/06/16 17:00 74 26 H 10/06/16 16:00 98.0 F 70 20 10/06/16 15:00 76 17 10/06/16 14:04 10/06/16 14:00 80 21 10/06/16 13:57 68 16 10/06/16 13:50 72 16 10/06/16 13:00 83 15 10/06/16 12:00 98.9 F 73 20 10/06/16 11:00 76 10 L 10/06/16 10:00 78 21 BP Pulse Ox 10/07/16 09:28 127/80 10/07/16 08:04 98 10/07/16 08:00 10/07/16 07:57 10/07/16 07:00 148/71 100 10/07/16 06:00 150/75 92 10/07/16 05:00 148/74 100 10/07/16 04:26 10/07/16 04:00 163/86 100 10/07/16 03:00 158/81 100 10/07/16 02:20 10/07/16 02:06 159/80 100 10/07/16 02:05 10/07/16 02:00 159/80 100 10/07/16 01:00 151/85 96 10/07/16 00:00 157/82 98 10/06/16 23:44 10/06/16 23:38 150/81 100 10/06/16 23:00 150/81 98 10/06/16 22:00 159/94 97 10/06/16 21:00 148/76 95 10/06/16 20:01 99 10/06/16 20:00 148/76 98 10/06/16 19:50 10/06/16 19:00 163/76 98 10/06/16 18:00 163/76 100 10/06/16 17:00 167/78 100 10/06/16 16:00 158/83 97 10/06/16 15:00 158/83 99 10/06/16 14:04 99 10/06/16 14:00 148/77 100 10/06/16 13:57 10/06/16 13:50 10/06/16 13:00 172/87 87 10/06/16 12:00 172/87 100 10/06/16 11:00 164/80 100 10/06/16 10:00 165/97 100 - Physical Examination General: No Apparent Distress HEENT: Positive: PERRL Neck: Positive: trachea midline Cardiac: Positive: Reg Rate and Rhythm Lungs: Positive: Decreased Breath Sounds - Labs and Meds Cardiac Enzymes 10/07/16 Range/Units 04:44 AST 15 (5-40) units/L CBC 10/07/16 Range/Units 04:44 WBC 6.1 (4.5-11.0) K/mm3 RBC 4.00 (3.65-5.03) M/mm3 Hgb 9.9 L (11.8-15.2) gm/dl Hct 31.0 L (35.5-45.6) % Plt Count 336 (140-440) K/mm3 Lymph # 1.0 L (1.2-5.4) K/mm3 [place] # 0.4 (0.0-0.8) K/mm3 Eos # 0.3 (0.0-0.4) K/mm3 Baso # 0.0 (0.0-0.1) K/mm3 Comprehensive Metabolic Panel 10/07/16 Range/Units 04:44 Sodium 141 (137-145) mmol/L Potassium 3.1 L (3.6-5.0) mmol/L Chloride 98.5 (98-107) mmol/L Carbon Dioxide 29 (22-30) mmol/L BUN 20 (9-20) mg/dL Creatinine 1.3 (0.8-1.5) mg/dL Glucose 110 H (75-100) mg/dL Calcium 7.9 L (8.4-10.2) mg/dL AST 15 (5-40) units/L ALT 15 (7-56) units/L Alkaline Phosphatase 55 (35-129) units/L Total Protein 6.1 L (6.3-8.2) g/dL Albumin 3.4 L (3.9-5) g/dL - Imaging and Cardiology EKG: image reviewed (sinus tachycardia)
[2016-10-07] MEDS: APRESOLINE PO SCH ×2 (14:49→21:47)
--- NOTE | 2016-10-07 23:55 | Progress Note ---
Assessment and Plan 1. Acute on chronic systolic congestive heart failure: Continue with diuresis, daily weights. Strict input and output chart. 2. Ischemic cardiomyopathy. Patient on aspirin, atorvastatin lisinopril and beta lb. Ejection fraction was 30-35%. 3. Diabetes mellitus: Optimize control with oral hypoglycemic agents. 4. Carotid disease status post CABG 3 in 2015. Patient advised to show him his regular medications that include beta blockers. Lisinopril. 5. COPD: Bronchodilators, June. 6. Hypertension: Optimize control with oral antihypertensives medications. DVT prophylaxis with Lovenox, GI prophylaxis with Protonix. Spent 45 minutes in direct patient care and is draining management plan to the patient Subjective Date of service: 10/07/16 Principal diagnosis: acute on chronic respiratory failure Interval history: Patient has been making progress gradual improvement. Shortness of breath improved. Objective - Constitutional Vitals: Vital Signs - 12hr 10/07/16 10/07/16 10/07/16 11:58 12:00 13:00 Temperature 98.4 F Pulse Rate 74 81 Pulse Rate [ Anterior Bilateral Throughout] Pulse Rate [ Left Radial] Respiratory 26 H 25 H Rate Respiratory Rate [Anterior Bilateral Throughout] Blood Pressure 154/79 152/79 Blood Pressure [Left Arm] O2 Sat by Pulse 99 91 Oximetry 10/07/16 10/07/16 10/07/16 14:00 14:49 15:00 Temperature Pulse Rate 87 88 81 Pulse Rate [ Anterior Bilateral Throughout] Pulse Rate [ Left Radial] Respiratory 18 19 Rate Respiratory Rate [Anterior Bilateral Throughout] Blood Pressure 161/81 161/81 121/65 Blood Pressure [Left Arm] O2 Sat by Pulse 98 96 Oximetry 10/07/16 10/07/16 10/07/16 15:34 16:00 17:00 Temperature Pulse Rate 85 78 Pulse Rate [ 80 Anterior Bilateral Throughout] Pulse Rate [ Left Radial] Respiratory 26 H 20 Rate Respiratory 18 Rate [Anterior Bilateral Throughout] Blood Pressure 161/81 141/62 Blood Pressure [Left Arm] O2 Sat by Pulse 95 98 Oximetry 10/07/16 10/07/16 10/07/16 17:38 18:00 20:00 Temperature 98.6 F Pulse Rate 85 Pulse Rate [ 81 Anterior Bilateral Throughout] Pulse Rate [ Left Radial] Respiratory 28 H Rate Respiratory 16 Rate [Anterior Bilateral Throughout] Blood Pressure 141/62 Blood Pressure [Left Arm] O2 Sat by Pulse 88 Oximetry 10/07/16 10/07/16 10/07/16 20:17 20:43 22:36 Temperature 98.5 F Pulse Rate Pulse Rate [ 83 Anterior Bilateral Throughout] Pulse Rate [ 83 Left Radial] Respiratory 24 Rate Respiratory 16 Rate [Anterior Bilateral Throughout] Blood Pressure Blood Pressure 136/78 [Left Arm] O2 Sat by Pulse 100 Oximetry 10/07/16 23:40 Temperature Pulse Rate 72 Pulse Rate [ Anterior Bilateral Throughout] Pulse Rate [ Left Radial] Respiratory 24 Rate Respiratory Rate [Anterior Bilateral Throughout] Blood Pressure Blood Pressure [Left Arm] O2 Sat by Pulse 93 Oximetry General appearance: Present: no acute distress - EENT Eyes: PERRL ENT: hearing intact, clear oral mucosa Ears: bilateral: normal - Neck Neck: supple, normal ROM - Respiratory Respiratory effort: normal Respiratory: bilateral: CTA - Cardiovascular Rhythm: regular Heart Sounds: Present: S1 & S2. Absent: gallop, rub Extremities: pulses intact, No edema, normal color, Full ROM - Gastrointestinal General gastrointestinal: Present: soft, non-tender, non-distended, normal bowel sounds - Integumentary Integumentary: clear, warm, dry - Musculoskeletal Musculoskeletal: 1, strength equal bilaterally - Neurologic Neurologic: moves all extremities - Psychiatric Psychiatric: memory intact, appropriate mood/affect, intact judgment & insight - Labs CBC & Chem 7: 10/07/16 04:44 10/07/16 04:44 Labs: Abnormal lab results 10/07/16 10/07/16 10/07/16 Range/Units 04:44 04:44 05:12 Hgb 9.9 L (11.8-15.2) gm/dl Hct 31.0 L (35.5-45.6) % MCV 78 L (84-94) fl MCH 25 L (28-32) pg RDW 18.3 H (13.2-15.2) % [place] % (Auto) 7.4 H (0.0-7.3) % Eos % (Auto) 4.8 H (0.0-4.3) % Lymph # 1.0 L (1.2-5.4) K/mm3 Seg Neutrophils % 70.4 H (40.0-70.0) % POC ABG pO2 110 H (80-105) Potassium 3.1 L (3.6-5.0) mmol/L Glucose 110 H (75-100) mg/dL POC Glucose (70-105) Calcium 7.9 L (8.4-10.2) mg/dL Total Protein 6.1 L (6.3-8.2) g/dL Albumin 3.4 L (3.9-5) g/dL 10/07/16 10/07/16 10/07/16 Range/Units 05:22 11:48 17:13 Hgb (11.8-15.2) gm/dl Hct (35.5-45.6) % MCV (84-94) fl MCH (28-32) pg RDW (13.2-15.2) % [place] % (Auto) (0.0-7.3) % Eos % (Auto) (0.0-4.3) % Lymph # (1.2-5.4) K/mm3 Seg Neutrophils % (40.0-70.0) % POC ABG pO2 (80-105) Potassium (3.6-5.0) mmol/L Glucose (75-100) mg/dL POC Glucose 114 H 162 H 254 H (70-105) Calcium (8.4-10.2) mg/dL Total Protein (6.3-8.2) g/dL Albumin (3.9-5) g/dL
[2016-10-08] MEDS: NOVOLOG SUB-Q SCH ×5 (00:19→23:53)
[2016-10-08] MEDS: DUONEB 0.5 MG-3 MG/3 ML SOLN IH SCH ×4 (01:29→19:27)
[2016-10-08] MEDS: LASIX IV SCH ×2 (05:09→18:22)
[2016-10-08] MEDS: APRESOLINE PO SCH ×3 (05:09→21:31)
[2016-10-08] MEDS: PULMICORT IH SCH ×2 (07:58→19:27)
[2016-10-08] MEDS: BROVANA NEBU IH SCH ×2 (07:59→19:27)
--- NOTE | 2016-10-08 09:00 | Progress Note ---
Assessment and Plan 71 y/o male with acute on chronic respiratory failure secondary to acute exacerbation of systolic heart failure. 1 . Daily net negative state, doing well with this so far 2. BP and rate control 3. Continue BID pulmicort and brovana 4. Continue bipap therapy at night 5. Hopeful discharge soon. needs to be converted over to PO lasix. Subjective Date of service: 10/08/16 Principal diagnosis: acute on chronic respiratory failure Interval history: No acute events. Successful transition out of ICU. Wore bipap last night, down to nasal cannula 2 liters with good sats. Has chronic respiratory failure on cannula at home. Objective Vital Signs - 12hr 10/07/16 10/07/16 10/08/16 22:36 23:40 00:20 Temperature 98.5 F 97.7 F Pulse Rate 72 Pulse Rate [ Anterior Bilateral Throughout] Pulse Rate [ From Monitor] Pulse Rate [ 83 77 Left Radial] Pulse Rate [ Right Radial] Respiratory 24 24 20 Rate Respiratory Rate [Anterior Bilateral Throughout] Blood Pressure 136/78 132/87 [Left Arm] Blood Pressure [Right Radial Artery] O2 Sat by Pulse 93 100 Oximetry 10/08/16 10/08/16 10/08/16 00:59 01:29 01:39 Temperature 97.7 F Pulse Rate Pulse Rate [ 79 79 Anterior Bilateral Throughout] Pulse Rate [ 77 From Monitor] Pulse Rate [ Left Radial] Pulse Rate [ Right Radial] Respiratory 22 Rate Respiratory 18 18 Rate [Anterior Bilateral Throughout] Blood Pressure 123/87 [Left Arm] Blood Pressure [Right Radial Artery] O2 Sat by Pulse 100 Oximetry 10/08/16 10/08/16 10/08/16 04:00 04:55 07:59 Temperature 97.8 F Pulse Rate 70 Pulse Rate [ 76 Anterior Bilateral Throughout] Pulse Rate [ 73 From Monitor] Pulse Rate [ Left Radial] Pulse Rate [ Right Radial] Respiratory 20 Rate Respiratory 16 Rate [Anterior Bilateral Throughout] Blood Pressure 133/61 [Left Arm] Blood Pressure [Right Radial Artery] O2 Sat by Pulse Oximetry 10/08/16 10/08/16 10/08/16 08:02 08:10 08:16 Temperature Pulse Rate Pulse Rate [ 79 Anterior Bilateral Throughout] Pulse Rate [ From Monitor] Pulse Rate [ Left Radial] Pulse Rate [ Right Radial] Respiratory Rate Respiratory 18 Rate [Anterior Bilateral Throughout] Blood Pressure [Left Arm] Blood Pressure [Right Radial Artery] O2 Sat by Pulse 95 95 Oximetry 10/08/16 08:33 Temperature 97.8 F Pulse Rate Pulse Rate [ Anterior Bilateral Throughout] Pulse Rate [ From Monitor] Pulse Rate [ Left Radial] Pulse Rate [ 78 Right Radial] Respiratory 18 Rate Respiratory Rate [Anterior Bilateral Throughout] Blood Pressure [Left Arm] Blood Pressure 138/72 [Right Radial Artery] O2 Sat by Pulse Oximetry Constitutional: no acute distress, alert Eyes: non-icteric Ascultation: Bilateral: diminished breath sounds Percussion: Bilateral: not dull Cardiovascular: regular rate and rhythm Gastrointestinal: normoactive bowel sounds Extremities: no edema CBC and BMP: 10/07/16 04:44 10/07/16 04:44 ABG, PT/INR, D-dimer: ABG POC ABG pH 7.443 (7.35-7.45) 10/07/16 05:12 POC ABG pCO2 41.7 (35-45) 10/07/16 05:12 POC ABG pO2 110 (80-105) H 10/07/16 05:12 POC ABG HCO3 28.5 10/07/16 05:12 POC ABG Total CO2 30 10/07/16 05:12 POC ABG O2 Sat 98 10/07/16 05:12 PT/INR, D-dimer PT 14.7 Sec. (12.2-14.9) 10/04/16 07:20 INR 1.16 (0.87-1.13) H 10/04/16 07:20 D-Dimer 431.65 ng/mlDDU (0-234) H 10/04/16 07:20 Abnormal lab findings: Abnormal Labs 10/04/16 10/04/16 10/04/16 13:20 15:47 17:01 RBC Hgb Hct MCV MCH RDW [place] % (Auto) Eos % (Auto) Lymph # Seg Neutrophils % POC ABG pO2 63 L Potassium BUN Glucose POC Glucose 226 H 165 H Calcium Total Protein Albumin 10/04/16 10/05/16 10/05/16 23:04 04:20 04:20 RBC 3.62 L Hgb 9.0 L Hct 28.0 L MCV 78 L MCH 25 L RDW 18.3 H [place] % (Auto) Eos % (Auto) Lymph # 1.1 L Seg Neutrophils % 75.1 H POC ABG pO2 Potassium BUN 25 H Glucose 105 H POC Glucose 124 H Calcium Total Protein Albumin 10/05/16 10/05/16 10/05/16 05:03 10:25 11:42 RBC Hgb Hct MCV MCH RDW [place] % (Auto) Eos % (Auto) Lymph # Seg Neutrophils % POC ABG pO2 Potassium BUN Glucose POC Glucose 118 H 180 H 195 H Calcium Total Protein Albumin 10/05/16 10/05/16 10/06/16 17:20 23:31 04:31 RBC Hgb 10.2 L Hct 32.2 L MCV 78 L MCH 25 L RDW 18.4 H [place] % (Auto) Eos % (Auto) Lymph # Seg Neutrophils % POC ABG pO2 Potassium BUN Glucose POC Glucose 215 H 144 H Calcium Total Protein Albumin 10/06/16 10/06/16 10/06/16 04:31 05:52 11:27 RBC Hgb Hct MCV MCH RDW [place] % (Auto) Eos % (Auto) Lymph # Seg Neutrophils % POC ABG pO2 Potassium 3.5 L BUN 25 H Glucose 141 H POC Glucose 143 H 136 H Calcium Total Protein Albumin 10/06/16 10/06/16 10/07/16 17:14 23:28 04:44 RBC Hgb 9.9 L Hct 31.0 L MCV 78 L MCH 25 L RDW 18.3 H [place] % (Auto) 7.4 H Eos % (Auto) 4.8 H Lymph # 1.0 L Seg Neutrophils % 70.4 H POC ABG pO2 Potassium BUN Glucose POC Glucose 126 H 143 H Calcium Total Protein Albumin 10/07/16 10/07/16 10/07/16 04:44 05:12 05:22 RBC Hgb Hct MCV MCH RDW [place] % (Auto) Eos % (Auto) Lymph # Seg Neutrophils % POC ABG pO2 110 H Potassium 3.1 L BUN Glucose 110 H POC Glucose 114 H Calcium 7.9 L Total Protein 6.1 L Albumin 3.4 L 10/07/16 10/07/16 10/08/16 11:48 17:13 00:13 RBC Hgb Hct MCV MCH RDW [place] % (Auto) Eos % (Auto) Lymph # Seg Neutrophils % POC ABG pO2 Potassium BUN Glucose POC Glucose 162 H 254 H 207 H Calcium Total Protein Albumin
[2016-10-08] MEDS: MAG-OX PO SCH (09:54)
[2016-10-08] MEDS: PLAVIX PO SCH (09:54)
[2016-10-08] MEDS: VITAMIN D3 PO SCH (09:54)
[2016-10-08] MEDS: HALFPRIN EC PO SCH (09:54)
[2016-10-08] MEDS: K-DUR PO SCH (09:54)
[2016-10-08] MEDS: LOPRESSOR PO SCH ×2 (09:54→21:31)
[2016-10-08] MEDS: HEPARIN SUB-Q SCH ×2 (09:58→21:32)
--- NOTE | 2016-10-08 16:11 | Progress Note ---
Assessment and Plan 1. Acute on chronic systolic congestive heart failure: Improved. Continue with diuresis, daily weights. Strict input and output chart. 2. Ischemic cardiomyopathy. Patient on aspirin, atorvastatin lisinopril and beta lb. Ejection fraction was 30-35%. 3. Diabetes mellitus: Optimize control with oral hypoglycemic agents. 4. Carotid disease status post CABG 3 in 2015. Patient advised to show him his regular medications that include beta blockers. Lisinopril. 5. COPD: Bronchodilators, June. 6. Hypertension: Optimize control with oral antihypertensives medications. DVT prophylaxis with Lovenox, GI prophylaxis with Protonix. Spent 45 minutes in direct patient care and is draining management plan to the patient Subjective Date of service: 10/08/16 Principal diagnosis: acute on chronic respiratory failure Interval history: Feeling better Objective - Constitutional Vitals: Vital Signs - 12hr 10/08/16 10/08/16 10/08/16 04:55 07:59 08:00 Temperature 97.8 F Pulse Rate [ 76 Anterior Bilateral Throughout] Pulse Rate [ 73 From Monitor] Pulse Rate [ Right Radial] Respiratory 20 18 Rate Respiratory 16 Rate [Anterior Bilateral Throughout] Blood Pressure 133/61 [Left Arm] Blood Pressure [Right Radial Artery] O2 Sat by Pulse 100 Oximetry 10/08/16 10/08/16 10/08/16 08:02 08:10 08:16 Temperature Pulse Rate [ 79 Anterior Bilateral Throughout] Pulse Rate [ From Monitor] Pulse Rate [ Right Radial] Respiratory Rate Respiratory 18 Rate [Anterior Bilateral Throughout] Blood Pressure [Left Arm] Blood Pressure [Right Radial Artery] O2 Sat by Pulse 95 95 Oximetry 10/08/16 10/08/16 10/08/16 08:33 14:42 14:53 Temperature 97.8 F Pulse Rate [ 82 87 Anterior Bilateral Throughout] Pulse Rate [ From Monitor] Pulse Rate [ 78 Right Radial] Respiratory 18 Rate Respiratory 16 16 Rate [Anterior Bilateral Throughout] Blood Pressure [Left Arm] Blood Pressure 138/72 [Right Radial Artery] O2 Sat by Pulse Oximetry General appearance: Present: no acute distress, well-nourished - EENT Eyes: PERRL, EOM intact ENT: hearing intact, clear oral mucosa Ears: bilateral: normal - Neck Neck: supple, normal ROM - Respiratory Respiratory effort: normal Respiratory: bilateral: CTA - Cardiovascular Rhythm: regular Heart Sounds: Present: S1 & S2. Absent: gallop, rub Extremities: pulses intact, No edema, normal color, Full ROM - Gastrointestinal General gastrointestinal: Present: soft, non-tender, non-distended, normal bowel sounds - Genitourinary Male genitourinary: normal - Integumentary Integumentary: clear, warm, dry - Musculoskeletal Musculoskeletal: 1, strength equal bilaterally - Neurologic Neurologic: moves all extremities - Psychiatric Psychiatric: memory intact, appropriate mood/affect, intact judgment & insight - Labs CBC & Chem 7: 10/09/16 09:56 10/09/16 05:24 Labs: Abnormal lab results 10/07/16 10/07/16 10/08/16 Range/Units 11:48 17:13 00:13 POC Glucose 162 H 254 H 207 H (70-105) 10/08/16 Range/Units 12:14 POC Glucose 161 H (70-105)
[2016-10-09] MEDS: DUONEB 0.5 MG-3 MG/3 ML SOLN IH SCH ×4 (03:02→19:22)
[2016-10-09] MEDS: LASIX IV SCH ×2 (05:30→18:31)
[2016-10-09] MEDS: APRESOLINE PO SCH ×3 (05:30→22:35)
[2016-10-09] MEDS: NOVOLOG SUB-Q SCH ×3 (05:30→18:50)
[2016-10-09 06:13] LABS: Albumin 3.1 g/dL (3.9-5); BUN/Creatinine Ratio 13.07; Bilirubin,Total 0.2 mg/dL (0.1-1.2); Calcium 7.9 mg/dL (8.4-10.2); Chloride 97.4 mmol/L (98-107); Total Protein 6.1 g/dL (6.3-8.2)
[2016-10-09 06:30] LABS: Potassium 2.8 mmol/L (3.6-5.0)
[2016-10-09] MEDS ORDERED: K-DUR PO ONE ×2 (07:00)
[2016-10-09] MEDS: BROVANA NEBU IH SCH ×2 (08:04→19:22)
[2016-10-09] MEDS: PULMICORT IH SCH ×2 (08:04→19:22)
--- NOTE | 2016-10-09 08:36 | Progress Note ---
Assessment and Plan 71 y/o male with acute on chronic respiratory failure secondary to acute exacerbation of systolic heart failure. 1 . Daily net negative state, doing well with this so far 2. BP and rate control 3. Continue BID pulmicort and brovana 4. Continue bipap therapy at night 5. electrolyte replacement per primary 6. Suggest placing on PO therapy. 7. Pulm status stable. No objection to discharge when primary team is ready. Subjective Date of service: 10/09/16 Principal diagnosis: acute on chronic respiratory failure Interval history: No acute events. Back to baseline home O2 requirement. Wearing positive pressure at night and tolerating. Remainder is negative. Objective Vital Signs - 12hr 10/08/16 10/09/16 10/09/16 23:00 03:02 03:11 Temperature 97.4 F L Pulse Rate 73 68 Pulse Rate [ 68 Anterior Bilateral Throughout] Pulse Rate [ 70 Right Radial] Respiratory 20 21 20 Rate Respiratory 21 Rate [Anterior Bilateral Throughout] Blood Pressure 152/82 [Right Radial Artery] O2 Sat by Pulse 98 100 100 Oximetry 10/09/16 10/09/16 10/09/16 03:21 04:57 08:03 Temperature Pulse Rate 65 Pulse Rate [ 69 Anterior Bilateral Throughout] Pulse Rate [ Right Radial] Respiratory Rate Respiratory 18 Rate [Anterior Bilateral Throughout] Blood Pressure [Right Radial Artery] O2 Sat by Pulse 100 Oximetry 10/09/16 10/09/16 08:05 08:15 Temperature Pulse Rate Pulse Rate [ 74 76 Anterior Bilateral Throughout] Pulse Rate [ Right Radial] Respiratory Rate Respiratory 18 18 Rate [Anterior Bilateral Throughout] Blood Pressure [Right Radial Artery] O2 Sat by Pulse Oximetry Constitutional: no acute distress, alert Eyes: non-icteric Ascultation: Bilateral: diminished breath sounds Percussion: Bilateral: not dull Cardiovascular: regular rate and rhythm Gastrointestinal: normoactive bowel sounds Extremities: no edema CBC and BMP: 10/07/16 04:44 10/09/16 05:24 ABG, PT/INR, D-dimer: ABG POC ABG pH 7.443 (7.35-7.45) 10/07/16 05:12 POC ABG pCO2 41.7 (35-45) 10/07/16 05:12 POC ABG pO2 110 (80-105) H 10/07/16 05:12 POC ABG HCO3 28.5 10/07/16 05:12 POC ABG Total CO2 30 10/07/16 05:12 POC ABG O2 Sat 98 10/07/16 05:12 PT/INR, D-dimer PT 14.7 Sec. (12.2-14.9) 10/04/16 07:20 INR 1.16 (0.87-1.13) H 10/04/16 07:20 D-Dimer 431.65 ng/mlDDU (0-234) H 10/04/16 07:20 Abnormal lab findings: Abnormal Labs 10/04/16 10/04/16 10/04/16 13:20 15:47 17:01 RBC Hgb Hct MCV MCH RDW [place] % (Auto) Eos % (Auto) Lymph # Seg Neutrophils % POC ABG pO2 63 L Potassium Chloride BUN Glucose POC Glucose 226 H 165 H Calcium Total Protein Albumin 10/04/16 10/05/16 10/05/16 23:04 04:20 04:20 RBC 3.62 L Hgb 9.0 L Hct 28.0 L MCV 78 L MCH 25 L RDW 18.3 H [place] % (Auto) Eos % (Auto) Lymph # 1.1 L Seg Neutrophils % 75.1 H POC ABG pO2 Potassium Chloride BUN 25 H Glucose 105 H POC Glucose 124 H Calcium Total Protein Albumin 10/05/16 10/05/16 10/05/16 05:03 10:25 11:42 RBC Hgb Hct MCV MCH RDW [place] % (Auto) Eos % (Auto) Lymph # Seg Neutrophils % POC ABG pO2 Potassium Chloride BUN Glucose POC Glucose 118 H 180 H 195 H Calcium Total Protein Albumin 10/05/16 10/05/16 10/06/16 17:20 23:31 04:31 RBC Hgb 10.2 L Hct 32.2 L MCV 78 L MCH 25 L RDW 18.4 H [place] % (Auto) Eos % (Auto) Lymph # Seg Neutrophils % POC ABG pO2 Potassium Chloride BUN Glucose POC Glucose 215 H 144 H Calcium Total Protein Albumin 10/06/16 10/06/16 10/06/16 04:31 05:52 11:27 RBC Hgb Hct MCV MCH RDW [place] % (Auto) Eos % (Auto) Lymph # Seg Neutrophils % POC ABG pO2 Potassium 3.5 L Chloride BUN 25 H Glucose 141 H POC Glucose 143 H 136 H Calcium Total Protein Albumin 10/06/16 10/06/16 10/07/16 17:14 23:28 04:44 RBC Hgb 9.9 L Hct 31.0 L MCV 78 L MCH 25 L RDW 18.3 H [place] % (Auto) 7.4 H Eos % (Auto) 4.8 H Lymph # 1.0 L Seg Neutrophils % 70.4 H POC ABG pO2 Potassium Chloride BUN Glucose POC Glucose 126 H 143 H Calcium Total Protein Albumin 10/07/16 10/07/16 10/07/16 04:44 05:12 05:22 RBC Hgb Hct MCV MCH RDW [place] % (Auto) Eos % (Auto) Lymph # Seg Neutrophils % POC ABG pO2 110 H Potassium 3.1 L Chloride BUN Glucose 110 H POC Glucose 114 H Calcium 7.9 L Total Protein 6.1 L Albumin 3.4 L 10/07/16 10/07/16 10/08/16 11:48 17:13 00:13 RBC Hgb Hct MCV MCH RDW [place] % (Auto) Eos % (Auto) Lymph # Seg Neutrophils % POC ABG pO2 Potassium Chloride BUN Glucose POC Glucose 162 H 254 H 207 H Calcium Total Protein Albumin 10/08/16 10/08/16 10/09/16 12:14 23:50 05:24 RBC Hgb Hct MCV MCH RDW [place] % (Auto) Eos % (Auto) Lymph # Seg Neutrophils % POC ABG pO2 Potassium 2.8 L* Chloride 97.4 L BUN Glucose 126 H POC Glucose 161 H 159 H Calcium 7.9 L Total Protein 6.1 L Albumin 3.1 L 10/09/16 05:27 RBC Hgb Hct MCV MCH RDW [place] % (Auto) Eos % (Auto) Lymph # Seg Neutrophils % POC ABG pO2 Potassium Chloride BUN Glucose POC Glucose 135 H Calcium Total Protein Albumin
[2016-10-09] MEDS: LOPRESSOR PO SCH ×2 (10:20→22:37)
[2016-10-09] MEDS: VITAMIN D3 PO SCH (10:20)
[2016-10-09] MEDS: K-DUR PO SCH (10:21)
[2016-10-09] MEDS: HALFPRIN EC PO SCH (10:21)
[2016-10-09] MEDS: PLAVIX PO SCH (10:21)
[2016-10-09] MEDS: MAG-OX PO SCH (10:21)
[2016-10-09 10:36] LABS: Basophils % (Auto) 0.4 % (0.0-1.8); Eosinophils % (Auto) 3.2 % (0.0-4.3); Hemoglobin 9.7 gm/dl (11.8-15.2); Mean Corpuscular HGB Conc 32 % (32-34); Mean Corpuscular Volume 78 fl (84-94); Platelet Count 352 K/mm3 (140-440); Red Blood Count 3.87 M/mm3 (3.65-5.03); Red Cell Distribution Width 17.6 % (13.2-15.2); White Blood Count 8.7 K/mm3 (4.5-11.0)
[2016-10-09 10:41] LABS: Mean Corpuscular Hemoglobin 25 pg (28-32)
--- NOTE | 2016-10-09 16:10 | Progress Note ---
Assessment and Plan 1. Acute on chronic systolic congestive heart failure: Improved. Continue with diuresis, daily weights. Strict input and output chart. 2. Ischemic cardiomyopathy. Patient on aspirin, atorvastatin lisinopril and beta lb. Ejection fraction was 30-35%. 3. Diabetes mellitus: Optimize control with oral hypoglycemic agents. 4. Carotid disease status post CABG 3 in 2015. Patient advised to show him his regular medications that include beta blockers. Lisinopril. 5. COPD: Bronchodilators, June. 6. Hypertension: Optimize control with oral antihypertensives medications. 7. Severe hypokalemia: Supplement potassium, check magnesium level DVT prophylaxis with Lovenox, GI prophylaxis with Protonix. Spent 45 minutes in direct patient care and is draining management plan to the patient Subjective Date of service: 10/09/16 Principal diagnosis: acute on chronic respiratory failure Interval history: Feeling better Objective - Constitutional Vitals: Vital Signs - 12hr 10/09/16 10/09/16 10/09/16 04:57 07:35 08:03 Temperature 97.8 F Pulse Rate 65 Pulse Rate [ Anterior Bilateral Throughout] Pulse Rate [ 65 From Monitor] Respiratory 20 Rate Respiratory Rate [Anterior Bilateral Throughout] Blood Pressure 135/61 [Right Radial Artery] O2 Sat by Pulse 100 100 Oximetry 10/09/16 10/09/16 10/09/16 08:05 08:15 10:00 Temperature Pulse Rate 66 Pulse Rate [ 74 76 Anterior Bilateral Throughout] Pulse Rate [ From Monitor] Respiratory Rate Respiratory 18 18 Rate [Anterior Bilateral Throughout] Blood Pressure [Right Radial Artery] O2 Sat by Pulse Oximetry 10/09/16 10/09/16 13:44 13:54 Temperature Pulse Rate Pulse Rate [ 82 80 Anterior Bilateral Throughout] Pulse Rate [ From Monitor] Respiratory Rate Respiratory 18 18 Rate [Anterior Bilateral Throughout] Blood Pressure [Right Radial Artery] O2 Sat by Pulse Oximetry General appearance: Present: no acute distress, well-nourished - EENT Eyes: PERRL, EOM intact ENT: hearing intact, clear oral mucosa Ears: bilateral: normal - Neck Neck: supple, normal ROM - Respiratory Respiratory effort: normal Respiratory: bilateral: CTA - Cardiovascular Rhythm: regular Heart Sounds: Present: S1 & S2. Absent: gallop, rub Extremities: pulses intact, No edema, normal color, Full ROM - Gastrointestinal General gastrointestinal: Present: soft, non-tender, non-distended, normal bowel sounds - Integumentary Integumentary: clear, warm, dry - Musculoskeletal Musculoskeletal: 1, strength equal bilaterally - Neurologic Neurologic: moves all extremities - Psychiatric Psychiatric: memory intact, appropriate mood/affect, intact judgment & insight - Labs CBC & Chem 7: 10/09/16 09:56 10/09/16 05:24 Labs: Abnormal lab results 10/08/16 10/09/16 10/09/16 Range/Units 23:50 05:24 05:27 Hgb (11.8-15.2) gm/dl Hct (35.5-45.6) % MCV (84-94) fl MCH (28-32) pg RDW (13.2-15.2) % Seg Neutrophils % (40.0-70.0) % Potassium 2.8 L* (3.6-5.0) mmol/L Chloride 97.4 L (98-107) mmol/L Glucose 126 H (75-100) mg/dL POC Glucose 159 H 135 H (70-105) Calcium 7.9 L (8.4-10.2) mg/dL Total Protein 6.1 L (6.3-8.2) g/dL Albumin 3.1 L (3.9-5) g/dL 10/09/16 Range/Units 09:56 Hgb 9.7 L (11.8-15.2) gm/dl Hct 30.0 L (35.5-45.6) % MCV 78 L (84-94) fl MCH 25 L (28-32) pg RDW 17.6 H (13.2-15.2) % Seg Neutrophils % 76.0 H (40.0-70.0) % Potassium (3.6-5.0) mmol/L Chloride (98-107) mmol/L Glucose (75-100) mg/dL POC Glucose (70-105) Calcium (8.4-10.2) mg/dL Total Protein (6.3-8.2) g/dL Albumin (3.9-5) g/dL
[2016-10-09] MEDS ORDERED: KCL 10MEQ/100ML 10 MEQ/100 ML BAG IV SCH (17:00)
[2016-10-09] MEDS: HEPARIN SUB-Q SCH (22:38)
[2016-10-10] MEDS: NOVOLOG SUB-Q SCH ×2 (00:43→06:07)
[2016-10-10] MEDS: DUONEB 0.5 MG-3 MG/3 ML SOLN IH SCH ×3 (01:31→13:37)
[2016-10-10 05:58] LABS: Albumin 3.3 g/dL (3.9-5); Albumin/Globulin Ratio 1.1 %; BUN/Creatinine Ratio 14.61; Bilirubin,Total 0.2 mg/dL (0.1-1.2); Chloride 97.2 mmol/L (98-107); Magnesium 2.2 mg/dL (1.7-2.3); Potassium 3.6 mmol/L (3.6-5.0); Total Protein 6.2 g/dL (6.3-8.2)
[2016-10-10] MEDS: APRESOLINE PO SCH (06:07)
[2016-10-10] MEDS: LASIX IV SCH (06:07)
[2016-10-10 07:43] LABS: Basophils % (Auto) 0.4 % (0.0-1.8); Eosinophils % (Auto) 3.4 % (0.0-4.3); Hematocrit 29.9 % (35.5-45.6); Hemoglobin 9.6 gm/dl (11.8-15.2); Mean Corpuscular HGB Conc 32 % (32-34); Mean Corpuscular Hemoglobin 25 pg (28-32); Mean Corpuscular Volume 77 fl (84-94); Platelet Count 365 K/mm3 (140-440); Red Blood Count 3.89 M/mm3 (3.65-5.03); Red Cell Distribution Width 17.7 % (13.2-15.2); White Blood Count 7.8 K/mm3 (4.5-11.0)
[2016-10-10] MEDS: BROVANA NEBU IH SCH (08:12)
--- NOTE | 2016-10-10 08:12 | Discharge Summary ---
Providers - Providers Date of Admission: 10/04/16 11:42 Date of discharge: 10/10/16 Attending physician: CHEYENNE TORRES Primary care physician: LENS MOLD SETTER Hospitalization Condition: Serious Hospital course: Patient is a pleasant 71-year-old male with past medical history of congestive heart failure, diabetes mellitus, ischemic cardiomyopathy, CAD, 3 vessel bypass CABG, and recurrent admission for congestive heart failure who presents to the ER via EMS with report of shortness of breath that has been progressively getting worse over the past few weeks. Worse last night with hypoxia at EMS arrival at mid 80s. On arrival to the ER patient was noted to be significantly edematous. Requiring BiPAP. Despite initial 80 mg of IV Lasix still remained on BiPAP. The patient denied any chest pain. Denied any nausea, vomiting, diarrhea. Was in the hospital in August 2016 for similar symptoms and has been hospitalized at the [facility] also. He is very dyspneic on appearance. I could not answer most questions. Patient was admitted to the hospital with congestive heart failure ischemic cardiomyopathy coronary artery disease. Patient was evaluated by cardiology and found that patient should be medically managed and no aggressive intervention should be done at this time. Patient was also evaluated by pulmonary for acute on chronic respiratory failure secondary to exacerbation of systolic heart failure. Pulmonary felt the patient could be continued on BiPAP therapy at night continue Pulmicort and perform a oxygen therapy as needed. Patient is clinically stable to time of discharge and will follow with his primary care physician within one week. Disposition: DISCHARGED TO HOME OR SELFCARE - Discharge Diagnoses (1) Congestive heart failure Status: Acute Qualifiers: Congestive heart failure type: unspecified congestive heart failure type Congestive heart failure chronicity: acute on chronic Qualified Code(s): I50.9 - Heart failure, unspecified (2) Acute and chronic respiratory failure with hypoxia Status: Acute (3) Hypertension Status: Chronic Qualifiers: Hypertension type: H (4) Type 2 diabetes mellitus Status: Chronic Qualifiers: Diabetes mellitus complication status: D Diabetes mellitus complication detail: D Diabetic retinopathy severity: D Proliferative retinopathy type: P Diabetes mellitus macular edema: D Diabetes mellitus group home insulin use : D Laterality: L Chronic kidney disease stage: C Core Measure Documentation - Palliative Care Palliative Care/ Comfort Measures: Not Applicable - Core Measures Any of the following diagnoses?: none Exam - Constitutional Vitals: Temp Pulse Resp BP Pulse Ox 97.5 F L 72 20 142/71 100 10/10/16 08:05 10/10/16 08:05 10/10/16 08:05 10/10/16 08:05 10/10/16 08:05 General appearance: Present: no acute distress - EENT Eyes: Present: PERRL, EOM intact ENT: hearing intact, clear oral mucosa - Neck Neck: Present: supple, normal ROM - Respiratory Respiratory effort: normal Respiratory: bilateral: CTA - Cardiovascular Rhythm: regular Heart Sounds: Present: S1 & S2 - Abdominal General gastrointestinal: Present: soft, non-tender, non-distended, normal bowel sounds - Musculoskeletal Musculoskeletal: strength equal bilaterally - Psychiatric Psychiatric: appropriate mood/affect, intact judgment & insight - Neurologic Neurologic: CNII-XII intact, moves all extremities Plan Activity: advance as tolerated Weight Bearing Status: Weight Bear as Tolerated Diet: low fat, low cholesterol, low salt Follow up with: PRIMARY CAREMD [Primary Care Provider] - 3-5 Days NOVA SOOD MD [Staff Physician] - 7 Days LORENZO MCGEE MD [Staff Physician] - 7 Days Prescriptions: Arformoterol Nebu [Brovana Nebu] 15 mcg IH Q12HRT #7 ml Aspirin EC [Aspirin Enteric Coated TAB] 81 mg PO QDAY #30 tablet AtorvaSTATin [Lipitor] 40 mg PO QHS #30 tablet Budesonide [Pulmicort Respules] 0.5 mg IH Q12HRT #7 nebu Cholecalciferol Vit D3 [Vitamin D3] 1,000 unit PO QDAY #30 tablet Clopidogrel [Plavix] 75 mg PO QDAY #30 tablet Famotidine [Pepcid] 20 mg PO BID #60 tablet Flomax 0.4 mg PO DAILY #30 Furosemide [Lasix TAB] 40 mg PO BID #60 tablet glipiZIDE [Glucotrol] 5 mg PO BID #60 tablet hydrALAZINE [Apresoline TAB] 25 mg PO Q8HR #90 tablet Magnesium Oxide [Magnesium] 400 mg PO DAILY #30 tablet metFORMIN [Glucophage] 1,000 mg PO BID #60 tablet Metoprolol [Lopressor TAB] 12.5 mg PO BID #60 tablet Multivitamin Tab W-MINERAL [Multiple Vitamin/Mineral (Theragran M)] 1 each PO QDAY #30 tablet NIFEdipine XL [Procardia Xl] 90 mg PO DAILY #30 tablet Potassium Chloride [K-Dur] 10 meq PO QDAY #30 tablet
[2016-10-10] MEDS: PULMICORT IH SCH (08:13)
[2016-10-10] MEDS: HALFPRIN EC PO SCH (09:23)
[2016-10-10] MEDS: MAG-OX PO SCH (09:24)
[2016-10-10] MEDS: K-DUR PO SCH (09:24)
[2016-10-10] MEDS: LOPRESSOR PO SCH (09:24)
[2016-10-10] MEDS: PLAVIX PO SCH (09:25)
[2016-10-10] MEDS: VITAMIN D3 PO SCH (09:25)
--- NOTE | 2016-10-10 13:24 | Progress Note ---
Assessment and Plan Acute hypoxic respiratory failure CHF exacerbation, systolic Right pleural effusion Anemia Hx of ischemic cardiomyopathy EF 30-35% on echo 06/2016 ACEi allergy Hx of CAD s/p 3v CABG 08/2015 Diabetes mellitus Hypertension Hx of tracheostomy Obstructive sleep apnea Recommendations: Continue medical therapy for systolic heart failure and coronary artery disease. Stable cardiac siegel. Subjective Date of service: 10/10/16 Principal diagnosis: acute on chronic respiratory failure Interval history: Patient resting in bed comfortably. Patient has no complaints. Objective Vital Signs Temp Pulse Pulse Pulse Resp Resp BP 10/10/16 12:36 69 10/10/16 08:40 80 18 10/10/16 08:14 10/10/16 08:13 82 18 10/10/16 08:05 97.5 F L 72 20 10/10/16 06:07 84 138/64 10/10/16 05:24 97.6 F 84 18 10/10/16 01:33 81 18 10/10/16 00:11 98.9 F 76 18 10/09/16 23:26 81 10/09/16 22:37 81 141/68 10/09/16 22:35 81 141/68 10/09/16 22:23 87 22 10/09/16 20:14 97.6 F 81 20 10/09/16 19:32 81 17 10/09/16 19:22 82 19 10/09/16 17:15 98.2 F 78 20 10/09/16 13:54 80 18 10/09/16 13:44 82 18 BP Pulse Ox 10/10/16 12:36 10/10/16 08:40 10/10/16 08:14 96 10/10/16 08:13 10/10/16 08:05 142/71 100 10/10/16 06:07 10/10/16 05:24 138/64 98 10/10/16 01:33 97 10/10/16 00:11 110/74 97 10/09/16 23:26 10/09/16 22:37 10/09/16 22:35 10/09/16 22:23 100 10/09/16 20:14 141/68 98 10/09/16 19:32 10/09/16 19:22 97 10/09/16 17:15 147/70 97 10/09/16 13:54 10/09/16 13:44 - Physical Examination General: No Apparent Distress - Labs and Meds Cardiac Enzymes 10/10/16 Range/Units 04:47 AST 19 (5-40) units/L CBC 10/10/16 Range/Units 06:58 WBC 7.8 (4.5-11.0) K/mm3 RBC 3.89 (3.65-5.03) M/mm3 Hgb 9.6 L (11.8-15.2) gm/dl Hct 29.9 L (35.5-45.6) % Plt Count 365 (140-440) K/mm3 Lymph # 1.2 (1.2-5.4) K/mm3 [place] # 0.6 (0.0-0.8) K/mm3 Eos # 0.3 (0.0-0.4) K/mm3 Baso # 0.0 (0.0-0.1) K/mm3 Comprehensive Metabolic Panel 10/09/16 10/10/16 Range/Units 17:57 04:47 Sodium 140 (137-145) mmol/L Potassium 3.6 D 3.6 (3.6-5.0) mmol/L Chloride 97.2 L (98-107) mmol/L Carbon Dioxide 30 (22-30) mmol/L BUN 19 (9-20) mg/dL Creatinine 1.3 (0.8-1.5) mg/dL Glucose 102 H (75-100) mg/dL Calcium 8.0 L (8.4-10.2) mg/dL AST 19 (5-40) units/L ALT 12 (7-56) units/L Alkaline Phosphatase 52 (35-129) units/L Total Protein 6.2 L (6.3-8.2) g/dL Albumin 3.3 L (3.9-5) g/dL - Imaging and Cardiology EKG: image reviewed (sinus tachycardia)
[2016-10-10 17:55] VITALS: BP 143/66
== END 2016-10-10 18:25 | disposition home or self-care (01) | DRG 291 ==
LOC: ED 06:52 → CC1 11:42 → 4A 10-07 19:20
PROVIDERS: ADMIT Internal Medicine; ATTEND Internal Medicine
PROC: 5A09457 Assistance with Respiratory Ventilation, 24-96 Consecutive Hours, Continuous Positive Airway Pressure (ICD-10-PCS; principal; 2016-10-06)
PROC: 4A033R1 Measurement of Arterial Saturation, Peripheral, Percutaneous Approach (ICD-10-PCS; 2016-10-06)
DX: I11.0 Hypertensive heart disease with heart failure (principal); J96.21 Acute and chronic respiratory failure with hypoxia; I50.23 Acute on chronic systolic (congestive) heart failure; J44.9 Chronic obstructive pulmonary disease, unspecified; E11.9 Type 2 diabetes mellitus without complications; E87.6 Hypokalemia; I25.5 Ischemic cardiomyopathy; I25.10 Atherosclerotic heart disease of native coronary artery without angina pectoris; G47.33 Obstructive sleep apnea (adult) (pediatric); Z88.0 Allergy status to penicillin; Z88.1 Allergy status to other antibiotic agents; Z88.8 Allergy status to other drugs, medicaments and biological substances; Z68.26 Body mass index [BMI] 26.0-26.9, adult; Z79.4 Long term (current) use of insulin; Z99.81 Dependence on supplemental oxygen; Z79.82 Long term (current) use of aspirin; Z95.1 Presence of aortocoronary bypass graft
CPT/HCPCS: 36415; 36600; 71010; 71275; 80048; 80053; 81001; 82140; 82550; 82553; 82803; 82962; 83735; 83880; 84132; 84484; 85007; 85025; 85027; 85379; 85610; 85730; 93005; 93010; 94640; 94660; 94760; 96374; 99291; A9270-GY; J0360; J1644; J1815; J1940; J3480; Q9967

== ENCOUNTER 2017-03-21 16:17 | Inpatient (IN) | payer MEDICARE, OTHER ==
--- NOTE | 2017-03-21 16:32 | Emergency Department Report ---
Entered by VENKAT PEREZ, acting as scribe for DEBBIE CHAIREZ NP. Chief Complaint: Dyspnea/Respdistress Stated Complaint: JUANIS Time Seen by Provider: 03/21/17 16:20 - HPI History of Present Illness: 71 y/o male presents with SOB/JUANIS that started 2 days ago. Pt was seen here and d/c about 2 weeks ago for similar Sx. . Medication taken includes Eliquis per pt. - ROS Review of Systems: +SOB/JUANIS + abd distention + edema to legs - Exam Vital Signs: Vital Signs 03/21/17 16:20 Temperature 97.8 F Pulse Rate 73 Respiratory 24 Rate Blood Pressure 144/98 O2 Sat by Pulse 96 Oximetry Physical Exam: lungs: coarse bilaterally no wheezing MSE screening note: Focused history and physical exam performed. Due to findings the following was ordered: labs, ekg , xr ED Disposition for MSE Condition: Stable This documentation as recorded by the scribeANA RYAN,accurately reflects the service I personally performed and the decisions made by MIHAELA craft TRACY M , CINDY.
[2017-03-21 16:53] LABS: Basophils % (Auto) 0.6 % (0.0-1.8); Eosinophils % (Auto) 0.6 % (0.0-4.3); Hematocrit 32.2 % (35.5-45.6); Mean Corpuscular HGB Conc 31 % (32-34); Mean Corpuscular Volume 76 fl (84-94); Platelet Count 541 K/mm3 (140-440); Red Blood Count 4.25 M/mm3 (3.65-5.03); Red Cell Distribution Width 18.5 % (13.2-15.2); White Blood Count 10.2 K/mm3 (4.5-11.0)
[2017-03-21] MEDS ORDERED: CARDIZEM IV ONE (16:54)
[2017-03-21 16:55] LABS: INR 1.53 (0.87-1.13)
[2017-03-21] MEDS ORDERED: LASIX IV ONE (16:55)
[2017-03-21 16:56] LABS: Partial Thromboplastin Time 33.9 Sec. (24.2-36.6)
[2017-03-21 16:57] LABS: Mean Corpuscular Hemoglobin 24 pg (28-32)
[2017-03-21 17:00] LABS: Albumin 3.3 g/dL (3.9-5); BUN/Creatinine Ratio 24.5; Bilirubin,Total 0.6 mg/dL (0.1-1.2); Calcium 8.4 mg/dL (8.4-10.2); Chloride 94.3 mmol/L (98-107); Potassium 5.2 mmol/L (3.6-5.0); Total Protein 6.7 g/dL (6.3-8.2)
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
[2017-03-21 17:17] LABS: Creatine Kinase MB 13.5 ng/mL (0.0-4.0)
--- NOTE | 2017-03-21 18:16 | History and Physical Report ---
History of Present Illness Chief complaint: I just cant breathe, and i keep coughing History of present illness: 71-year-old male with CHF, A Fib, HTN, DM, OA, COPD, CAD S/P CABG, HLD presents to ED for evaluation. Pt states that he has experienced pain in his chest, shortness of breath and nonproductive cough over the past 10 days with worsening symptoms over the past 1 day. Pain is 5/10, substernal, nonradiating, not exacerbated with exertion, or relieved with rest. Pt symptoms have progressively worsened and today he could only take one or 2 steps before resting due to his shortness of breath. Pt reports 2 episodes of loose stools today. Patient denies fever, chills, NVD, medication noncompliance , syncope, skin rash, or recent ill contacts. Past History Past Medical History: atrial fib, arthritis (CHF, A Fib, HTN, DM, OA, COPD, CAD S/P CABG, HLD), CAD (CHF, A Fib, HTN, DM, OA, COPD, CAD S/P CABG, HLD), COPD, diabetes, heart failure, hypertension, hyperlipidemia (CHF, A Fib, HTN, DM, OA, COPD, CAD S/P CABG, HLD), other (CHF, A Fib, HTN, DM, OA, COPD, CAD S/P CABG, HLD) Past Surgical History: CABG, bowel surgery, Other (stent placement) Social history: , lives with family. denies: smoking, alcohol abuse, prescription drug abuse, IV drug use Family history: diabetes, hypertension Medications and Allergies Allergies Allergy/AdvReac Type Severity Reaction Status Date / Time lisinopril Allergy Swelling Verified 08/16/16 12:08 Penicillins Allergy Shortness Verified 08/16/16 12:08 of Breath tetracycline Allergy Rash Verified 08/16/16 12:08 Home Medications Medication Instructions Recorded Confirmed Last Taken Type Albuterol Sulfate [Ventolin HFA] 2 puff IH Q4H PRN #1 pump 08/24/16 03/21/17 1 Day Ago Rx Arformoterol Nebu [Brovana Nebu] 15 mcg IH Q12HRT #7 ml 10/10/16 03/21/17 Unknown Rx AtorvaSTATin [Lipitor] 40 mg PO QHS #30 tablet 10/10/16 03/21/17 1 Day Ago Rx Budesonide [Pulmicort Respules] 0.5 mg IH Q12HRT #7 nebu 10/10/16 03/21/17 Unknown Rx Cholecalciferol Vit D3 [Vitamin D3] 1,000 unit PO QDAY #30 tablet 10/10/1603/21 1 Day Ago Rx Flomax 0.4 mg PO DAILY #30 10/10/16 03/21/17 1 Day Ago Rx Furosemide [Lasix TAB] 40 mg PO BID #60 tablet 10/10/16 03/21/17 1 Day Ago Rx glipiZIDE [Glucotrol] 5 mg PO BID #60 tablet 10/10/16 03/21/17 1 Day Ago Rx metFORMIN [Glucophage] 1,000 mg PO BID #60 tablet 10/10/16 03/21/17 1 Day Ago Rx ALBUTEROL NEB's [Proventil 0.083% 2.5 mg IH DAILY 03/03/17 03/21/17 1 Day Ago History NEBS] Magnesium Oxide [Magnesium] 420 mg PO DAILY 03/03/17 03/21/17 1 Day Ago History Apixaban [Eliquis] 2.5 mg PO Q12HR #60 tablet 03/06/17 03/21/17 Unknown Rx Carvedilol [Coreg] 3.125 mg PO BID #60 tablet 03/06/17 03/21/17 Unknown Rx Ferrous Sulfate [Feosol 325 MG tab] 325 mg PO BID #60 tablet 03/06/17 03/21/17 Unknown Rx Losartan [Cozaar] 50 mg PO QDAY #30 tablet 03/09/17 03/21/17 Unknown Rx Review of Systems All systems: negative Ears, nose, mouth and throat: no ear pain Cardiovascular: chest pain Respiratory: no cough with sputum Gastrointestinal: no abdominal pain Genitourinary Male: no dysuria Musculoskeletal: no neck pain Integumentary: no rash Neurological: no paralysis Psychiatric: no anxiety Endocrine: no cold intolerance Hematologic/Lymphatic: no easy bruising Allergic/Immunologic: no urticaria Exam - Constitutional Vitals: Temp Pulse Resp BP Pulse Ox 97.8 F 115 H 24 144/102 96 03/21/17 16:20 03/21/17 17:09 03/21/17 16:20 03/21/17 17:09 08/01/17 16:20 General appearance: Present: mild distress - EENT Eyes: Present: PERRL ENT: hearing intact, clear oral mucosa - Neck Neck: Present: supple, normal ROM - Respiratory Respiratory effort: labored Respiratory: bilateral: diminished - Cardiovascular Rhythm: irregularly irregular - Extremities Extremities: pulses symmetrical, No edema Extremity abnormal: edema Peripheral Pulses: within normal limits - Abdominal General gastrointestinal: Present: soft, non-tender, non-distended, normal bowel sounds Male genitourinary: Present: normal - Integumentary Integumentary: Present: clear, warm, dry - Musculoskeletal Musculoskeletal: generalized weakness - Psychiatric Psychiatric: appropriate mood/affect, intact judgment & insight - Neurologic Neurologic: CNII-XII intact, moves all extremities Results - Labs CBC & Chem 7: 03/21/17 16:32 03/21/17 16:32 Labs: Abnormal lab results 03/21/17 03/21/17 03/21/17 Range/Units 16:32 16:32 16:32 Hgb 10.0 L (11.8-15.2) gm/dl Hct 32.2 L (35.5-45.6) % MCV 76 L (84-94) fl MCH 24 L (28-32) pg MCHC 31 L (32-34) % RDW 18.5 H (13.2-15.2) % Plt Count 541 H (140-440) K/mm3 Lymph % (Auto) 8.6 L (13.4-35.0) % Lymph # 0.9 L (1.2-5.4) K/mm3 Seg Neutrophils % 85.1 H (40.0-70.0) % Seg Neutrophils # 8.6 H (1.8-7.7) K/mm3 PT 18.4 H (12.2-14.9) Sec. INR 1.53 H (0.87-1.13) Sodium 132 L (137-145) mmol/L Potassium 5.2 H (3.6-5.0) mmol/L Chloride 94.3 L (98-107) mmol/L Carbon Dioxide 21 L (22-30) mmol/L BUN 49 H (9-20) mg/dL Creatinine 2.0 H (0.8-1.5) mg/dL Glucose 250 H (75-100) mg/dL AST 60 H (5-40) units/L ALT 65 H (7-56) units/L Alkaline Phosphatase 160 H (35-129) units/L Total Creatine Kinase (55-170) units/L CK-MB (CK-2) (0.0-4.0) ng/mL Troponin T (0.00-0.029) ng/mL NT-Pro-B Natriuret Pep (0-900) pg/mL Albumin 3.3 L (3.9-5) g/dL HDL Cholesterol (40-59) mg/dL 03/21/17 Range/Units 16:32 Hgb (11.8-15.2) gm/dl Hct (35.5-45.6) % MCV (84-94) fl MCH (28-32) pg MCHC (32-34) % RDW (13.2-15.2) % Plt Count (140-440) K/mm3 Lymph % (Auto) (13.4-35.0) % Lymph # (1.2-5.4) K/mm3 Seg Neutrophils % (40.0-70.0) % Seg Neutrophils # (1.8-7.7) K/mm3 PT (12.2-14.9) Sec. INR (0.87-1.13) Sodium (137-145) mmol/L Potassium (3.6-5.0) mmol/L Chloride (98-107) mmol/L Carbon Dioxide (22-30) mmol/L BUN (9-20) mg/dL Creatinine (0.8-1.5) mg/dL Glucose (75-100) mg/dL AST (5-40) units/L ALT (7-56) units/L Alkaline Phosphatase (35-129) units/L Total Creatine Kinase 408 H (55-170) units/L CK-MB (CK-2) 13.5 H (0.0-4.0) ng/mL Troponin T 0.040 H (0.00-0.029) ng/mL NT-Pro-B Natriuret Pep 92619 H (0-900) pg/mL Albumin (3.9-5) g/dL HDL Cholesterol 34 L (40-59) mg/dL Assessment and Plan - Patient Problems (1) Acute exacerbation of CHF (congestive heart failure) Current Visit: Yes Status: Acute Qualifiers: Congestive heart failure type: systolic Qualified Code(s): I50.23 - Acute on chronic systolic (congestive) heart failure Plan to address problem: CHF protocol: Admit to telemetry, fluid restriction, monitor uop q shift to attain negative fluid balance, afterload reduction, cardiology consulted, resume home medication, diuretics. (2) Hyperkalemia Current Visit: Yes Status: Acute Plan to address problem: IV lasix, repeat bmp, hold potassium supplements (3) Diabetes Current Visit: Yes Status: Acute Qualifiers: Diabetes mellitus type: D Diabetes mellitus complication status: D Diabetes mellitus complication detail: D Diabetic retinopathy severity: D Proliferative retinopathy type: P Diabetes mellitus macular edema: D Diabetes mellitus chcf insulin use: D Laterality: L Chronic kidney disease stage: C Plan to address problem: Christel diet, insulin, accu check (4) HLD (hyperlipidemia) Current Visit: Yes Status: Acute Qualifiers: Hyperlipidemia type: H Plan to address problem: continue statin (5) Atrial fibrillation with RVR Current Visit: Yes Status: Acute Plan to address problem: resume home anticoagulation, continue b lb therapy, (6) Acute and chronic respiratory failure with hypoxia Current Visit: No Status: Acute (7) Hypertension Current Visit: No Status: Chronic Qualifiers: Hypertension type: H Plan to address problem: monitor bp q shift, resume home medication. (8) DVT prophylaxis Current Visit: Yes Status: Acute
--- NOTE | 2017-03-21 18:17 | History and Physical Report ---
Medications and Allergies Allergies Allergy/AdvReac Type Severity Reaction Status Date / Time lisinopril Allergy Swelling Verified 08/16/16 12:08 Penicillins Allergy Shortness Verified 08/16/16 12:08 of Breath tetracycline Allergy Rash Verified 08/16/16 12:08 Home Medications Medication Instructions Recorded Confirmed Last Taken Type Albuterol Sulfate [Ventolin HFA] 2 puff IH Q4H PRN #1 pump 08/24/16 03/03/17 1 Day Ago Rx Arformoterol Nebu [Brovana Nebu] 15 mcg IH Q12HRT #7 ml 10/10/16 03/03/17 Unknown Rx AtorvaSTATin [Lipitor] 40 mg PO QHS #30 tablet 10/10/16 03/03/17 1 Day Ago Rx Budesonide [Pulmicort Respules] 0.5 mg IH Q12HRT #7 nebu 10/10/16 03/03/17 Unknown Rx Cholecalciferol Vit D3 [Vitamin D3] 1,000 unit PO QDAY #30 tablet 10/10/1603/03 1 Day Ago Rx Clopidogrel [Plavix] 75 mg PO QDAY #30 tablet 10/10/16 03/03/17 1 Day Ago Rx Flomax 0.4 mg PO DAILY #30 10/10/16 03/03/17 1 Day Ago Rx Furosemide [Lasix TAB] 40 mg PO BID #60 tablet 10/10/16 03/03/17 1 Day Ago Rx glipiZIDE [Glucotrol] 5 mg PO BID #60 tablet 10/10/16 03/03/17 1 Day Ago Rx metFORMIN [Glucophage] 1,000 mg PO BID #60 tablet 10/10/16 03/03/17 1 Day Ago Rx ALBUTEROL NEB's [Proventil 0.083% 2.5 mg IH DAILY 03/03/17 03/03/17 1 Day Ago History NEBS] Clopidogrel [Plavix] 75 mg PO QDAY 03/03/17 03/03/17 1 Day Ago History Magnesium Oxide [Magnesium] 420 mg PO DAILY 03/03/17 03/03/17 1 Day Ago History Potassium Chloride [K-Dur] 10 mg PO QDAY 03/03/17 03/03/17 1 Day Ago History Apixaban [Eliquis] 2.5 mg PO Q12HR #60 tablet 03/06/17 Unknown Rx Carvedilol [Coreg] 3.125 mg PO BID #60 tablet 03/06/17 Unknown Rx Ferrous Sulfate [Feosol 325 MG tab] 325 mg PO BID #60 tablet 03/06/17 Unknown Rx Losartan [Cozaar] 50 mg PO QDAY #30 tablet 03/09/17 Unknown Rx Potassium Chloride [K-Dur] 40 meq PO QDAY #30 tablet 03/09/17 Unknown Rx Exam - Constitutional Vitals: Temp Pulse Resp BP Pulse Ox 97.8 F 115 H 24 144/102 96 03/21/17 16:20 03/21/17 17:09 03/21/17 16:20 03/21/17 17:09 03/21/17 16:20 Results - Labs CBC & Chem 7: 03/21/17 16:32 03/21/17 16:32 Labs: Abnormal lab results 03/21/17 03/21/17 03/21/17 Range/Units 16:32 16:32 16:32 Hgb 10.0 L (11.8-15.2) gm/dl Hct 32.2 L (35.5-45.6) % MCV 76 L (84-94) fl MCH 24 L (28-32) pg MCHC 31 L (32-34) % RDW 18.5 H (13.2-15.2) % Plt Count 541 H (140-440) K/mm3 Lymph % (Auto) 8.6 L (13.4-35.0) % Lymph # 0.9 L (1.2-5.4) K/mm3 Seg Neutrophils % 85.1 H (40.0-70.0) % Seg Neutrophils # 8.6 H (1.8-7.7) K/mm3 PT 18.4 H (12.2-14.9) Sec. INR 1.53 H (0.87-1.13) Sodium 132 L (137-145) mmol/L Potassium 5.2 H (3.6-5.0) mmol/L Chloride 94.3 L (98-107) mmol/L Carbon Dioxide 21 L (22-30) mmol/L BUN 49 H (9-20) mg/dL Creatinine 2.0 H (0.8-1.5) mg/dL Glucose 250 H (75-100) mg/dL AST 60 H (5-40) units/L ALT 65 H (7-56) units/L Alkaline Phosphatase 160 H (35-129) units/L Total Creatine Kinase (55-170) units/L CK-MB (CK-2) (0.0-4.0) ng/mL Troponin T (0.00-0.029) ng/mL NT-Pro-B Natriuret Pep (0-900) pg/mL Albumin 3.3 L (3.9-5) g/dL HDL Cholesterol (40-59) mg/dL 03/21/17 Range/Units 16:32 Hgb (11.8-15.2) gm/dl Hct (35.5-45.6) % MCV (84-94) fl MCH (28-32) pg MCHC (32-34) % RDW (13.2-15.2) % Plt Count (140-440) K/mm3 Lymph % (Auto) (13.4-35.0) % Lymph # (1.2-5.4) K/mm3 Seg Neutrophils % (40.0-70.0) % Seg Neutrophils # (1.8-7.7) K/mm3 PT (12.2-14.9) Sec. INR (0.87-1.13) Sodium (137-145) mmol/L Potassium (3.6-5.0) mmol/L Chloride (98-107) mmol/L Carbon Dioxide (22-30) mmol/L BUN (9-20) mg/dL Creatinine (0.8-1.5) mg/dL Glucose (75-100) mg/dL AST (5-40) units/L ALT (7-56) units/L Alkaline Phosphatase (35-129) units/L Total Creatine Kinase 408 H (55-170) units/L CK-MB (CK-2) 13.5 H (0.0-4.0) ng/mL Troponin T 0.040 H (0.00-0.029) ng/mL NT-Pro-B Natriuret Pep 25120 H (0-900) pg/mL Albumin (3.9-5) g/dL HDL Cholesterol 34 L (40-59) mg/dL
[2017-03-21] MEDS ORDERED: TYLENOL PO PRN (18:33)
[2017-03-21] MEDS ORDERED: ZOFRAN IV PRN (18:33)
[2017-03-21] MEDS ORDERED: PROVENTIL IH PRN (18:33)
[2017-03-21] MEDS ORDERED: PROAIR IH PRN (18:40)
--- NOTE | 2017-03-21 19:07 | Admit Criteria Form ---
Admission Criteria Documentation: HEART FAILURE Clinical Indications for Admission to Inpatient Care (Place 'X' for any and all applicable criteria): Admission is indicated by 1 or more of the following(1)(2)(3)(4)(5)(6)(7) [ ]I. Hemodynamic instability(9) [ ]II. Severe electrolyte abnormalities requiring inpatient care [X ]III. Cardiac arrhythmias of immediate concern [ ]IV. Precipitating cause for acute decompensation (eg, pneumonia, pulmonary embolism) requires inpatient care [ ]V. Acute cardiac ischemia causing or associated with failure (Also use Angina or Myocardial Infarction as appropriate) [ ]. Pulmonary edema that is very severe (eg, mechanical ventilation needed, imminent or likely, need for 100% oxygen to keep oxygen saturation above 90%) [ ]VII. Massive skin edema (anasarca) with complications (eg tissue breakdown with infection, inability to void due to edema)[A] (15) [ ]VIIl. Inpatient admission required [B]rather than observation care (See Heart Failure: Observation Care as appropriate) because of 1 or more of the following(16)(17): [ ]a) Pulmonary edema that is severe or worsening as indicated by ALL of the following: [ ]1) New need for oxygen therapy to keep oxygen saturation above 90% (or increased FiO2 need from baseline) [ ]2) Has not improved sufficiently with emergency department or observation care IV diuretics or other heart failure treatments[C] [ ]b) Altered mental status that is severe or persistent [ ]c) Increased creatinine (new on laboratory test) with reduction of more than 50% in estimated glomerular filtration rate from baseline. [ ]d) Progressively (ongoing) rising creatinine (known from past laboratory test) with reduction of more than 25% in estimated glomerular filtration rate from baseline [ ]e) Acute renal insufficiency (progressively (ongoing) rising creatinine (known from past laboratory test) with reduction of more than 25% in estimated glomerular filtration rate from baseline. [ ]f) Acute renal failure [ ]g) Acute peripheral ischemia (e.g., examination shows pulseless, cool, mottled, or cyanotic extremity) [ ]h) Oyxgen administration or respiratory treatments have been needed for over 24 hours that are performable only in acute inpatient setting [ ]i) Pulmonary artery catheter monitoring [ ]j) Other condition, treatment or monitoring requiring inpatient admission Extended stay beyond goal length of stay may be needed for(1)(14)(38)(42)(45) [ ]a) Cardiac ischemia, confirmed or suspected as precipitant (1) [ ]b) Cardiogenic shock (2)(46)(47)(48)(49) [ ]c) Acute renal failure [ ]d) Stage IV chronic kidney disease (estimated glomerular filtration rate of less than 30 mL/min/1.73m2 (0.50 mL/sec/1.73m2), and not previously on chronic dialysis [ ]e) Respiratory failure (eg, need for noninvasive or invasive ventilation) ( 50) [ ]f) Concomitant pneumonia or significant electrolyte abnormality (eg, severe hyponatremia) (51) [ ]g) Newly diagnosed (new onset) atrial fibrillation (52)(53) The original [employer] content created by [employer] has been revised. The portions of the content which have been revised are identified through the use of italic text or in bold, and [facility] has neither reviewed nor approved the modified material. All other unmodified content is copyright [facility] [employer]. Please see references footnoted in the original [facility] edition 2017 Admission Criteria Met: Yes
[2017-03-21] MEDS ORDERED: D50W (25GM) IV PRN (20:30)
[2017-03-21] MEDS: PULMICORT IH SCH (23:01)
[2017-03-21] MEDS: BROVANA NEBU IH SCH (23:01)
[2017-03-21] MEDS: COREG PO SCH (23:01)
[2017-03-21] MEDS: FEOSOL PO SCH (23:02)
[2017-03-21] MEDS: ELIQUIS PO SCH (23:02)
[2017-03-21] MEDS: NOVOLOG SUB-Q SCH (23:14)
[2017-03-21] MEDS: HYDROMET PO PRN (23:17)
[2017-03-22] MEDS ORDERED: LASIX IV SCH (06:00)
--- NOTE | 2017-03-22 08:19 | XRay Report ---
AP CHEST :03/21/17 16:17:00 CLINICAL: Dyspnea. COMPARISON:03/03/17 FINDINGS: Stable cardiomegaly. Pulmonary vessels are normal. The lungs are underexpanded but clear. No airspace disease or pleural effusion. Median sternotomy wires. IMPRESSION: Stable cardiomegaly. No CHF.
[2017-03-22] MEDS: PLAVIX PO SCH (09:22)
[2017-03-22] MEDS: VITAMIN D3 PO SCH (09:22)
[2017-03-22] MEDS: FEOSOL PO SCH ×2 (09:22→21:40)
[2017-03-22] MEDS: ELIQUIS PO SCH ×2 (09:23→21:40)
[2017-03-22] MEDS: NOVOLOG SUB-Q SCH ×4 (09:24→22:12)
[2017-03-22] MEDS: COREG PO SCH ×2 (09:24→21:40)
[2017-03-22] MEDS: MAG-OX PO SCH (09:27)
[2017-03-22] MEDS: PULMICORT IH SCH ×2 (09:59→20:40)
[2017-03-22] MEDS ORDERED: K-DUR PO SCH (10:00)
[2017-03-22] MEDS: BROVANA NEBU IH SCH ×2 (10:00→20:40)
[2017-03-22] MEDS ORDERED: COZAAR PO SCH (10:00)
--- NOTE | 2017-03-22 11:24 | Consultation ---
History of Present Illness Consult date: 03/22/17 Consult reason: congestive heart failure History of present illness: This is a 71yr old male that has a dilated ischemic cardiomyopathy, status post coronary 3 vessel bypass surgery a year ago. 5 months ago he has a persantine stress thallium that reports a fixed defect of old inferolateral defect, no reversible ischemia. He was recently admitted to this hospital with decompensated CHF, found to be in paroxysmal atrial fib/flutter for which he is on eliquis for oral anticoagulation. An echocardiogram at that time showed an ejection fraction 20-25%. Since discharge, the patient admits to compliance with his medications and fluid restriction since discharge. He returns to this hospital with complaints of coughs, abdominal bloating and shortness of breath. He denies chest pain. There is no lower extremity edema. No evidence of CHF on chest x-ray. His initial ECG shows atrial fibrillation with rapid ventricular response which was treated with IV cardizem in the ED. Cardiac consultation requested. Since his admission, patient reports he is feeling better after he had a large bowel movement. Patient reports black stools but he takes iron tablets at home. Labs shows a stable H&H of 10.0/32.2. Past History Past Medical History: atrial fib, arthritis (CHF, A Fib, HTN, DM, OA, COPD, CAD S/P CABG, HLD), CAD (CHF, A Fib, HTN, DM, OA, COPD, CAD S/P CABG, HLD), COPD, diabetes, heart failure, hypertension, hyperlipidemia (CHF, A Fib, HTN, DM, OA, COPD, CAD S/P CABG, HLD), other (CHF, A Fib, HTN, DM, OA, COPD, CAD S/P CABG, HLD) Past Surgical History: CABG, bowel surgery, Other (stent placement) Social history: , lives with family. denies: smoking, alcohol abuse, prescription drug abuse, IV drug use Family history: diabetes, hypertension Medications and Allergies Allergies Allergy/AdvReac Type Severity Reaction Status Date / Time lisinopril Allergy Swelling Verified 08/16/16 12:08 Penicillins Allergy Shortness Verified 08/16/16 12:08 of Breath tetracycline Allergy Rash Verified 08/16/16 12:08 Home Medications Medication Instructions Recorded Confirmed Last Taken Type Albuterol Sulfate [Ventolin HFA] 2 puff IH Q4H PRN #1 pump 01/04/17 08/01/17 1 Day Ago Rx Arformoterol Nebu [Brovana Nebu] 15 mcg IH Q12HRT #7 ml 10/10/16 03/21/17 Unknown Rx AtorvaSTATin [Lipitor] 40 mg PO QHS #30 tablet 10/10/16 03/21/17 1 Day Ago Rx Budesonide [Pulmicort Respules] 0.5 mg IH Q12HRT #7 nebu 10/10/16 03/21/17 Unknown Rx Cholecalciferol Vit D3 [Vitamin D3] 1,000 unit PO QDAY #30 tablet 10/10/1603/21 1 Day Ago Rx Flomax 0.4 mg PO DAILY #30 10/10/16 03/21/17 1 Day Ago Rx Furosemide [Lasix TAB] 40 mg PO BID #60 tablet 10/10/16 03/21/17 1 Day Ago Rx glipiZIDE [Glucotrol] 5 mg PO BID #60 tablet 10/10/16 03/21/17 1 Day Ago Rx metFORMIN [Glucophage] 1,000 mg PO BID #60 tablet 10/10/16 03/21/17 1 Day Ago Rx ALBUTEROL NEB's [Proventil 0.083% 2.5 mg IH DAILY 03/03/17 03/21/17 1 Day Ago History NEBS] Magnesium Oxide [Magnesium] 420 mg PO DAILY 03/03/17 03/21/17 1 Day Ago History Apixaban [Eliquis] 2.5 mg PO Q12HR #60 tablet 03/06/17 03/21/17 Unknown Rx Carvedilol [Coreg] 3.125 mg PO BID #60 tablet 03/06/17 03/21/17 Unknown Rx Ferrous Sulfate [Feosol 325 MG tab] 325 mg PO BID #60 tablet 03/06/17 03/21/17 Unknown Rx Losartan [Cozaar] 50 mg PO QDAY #30 tablet 03/09/17 03/21/17 Unknown Rx Active Meds: Active Medications Acetaminophen (Tylenol) 650 mg PO Q4H PRN PRN Reason: Pain MILD(1-3)/Fever >100.5/ABBASI Albuterol (Proventil) 2.5 mg IH Q4HRT PRN PRN Reason: Shortness Of Breath Apixaban (Eliquis) 2.5 mg PO Q12HR [facility] PRN Reason: Protocol Last Admin: 03/22/17 09:23 Dose: 2.5 mg Arformoterol Tartrate (Brovana Nebu) 15 mcg IH Q12HRT [facility] Last Admin: 03/22/17 10:00 Dose: 15 mcg Atorvastatin Calcium (Lipitor) 40 mg PO QHS [facility] Last Admin: 03/21/17 23:01 Dose: 40 mg Budesonide (Pulmicort) 0.5 mg IH Q12HRT [facility] Last Admin: 03/22/17 09:59 Dose: 0.5 mg Carvedilol (Coreg) 3.125 mg PO BID [facility] Last Admin: 03/22/17 09:24 Dose: 3.125 mg Cholecalciferol (Vitamin D3) 1,000 unit PO QDAY [facility] Last Admin: 03/22/17 09:22 Dose: 1,000 unit Clopidogrel Bisulfate (Plavix) 75 mg PO QDAY [facility] Last Admin: 03/22/17 09:22 Dose: 75 mg Dextrose (D50w (25gm)) 50 ml IV PRN PRN PRN Reason: Hypoglycemia Ferrous Sulfate (Feosol) 325 mg PO BID [facility] Last Admin: 03/22/17 09:22 Dose: 325 mg Furosemide (Lasix) 40 mg IV BID@0600,1800 [facility] Last Admin: 03/22/17 06:47 Dose: 40 mg Hydrocodone Bit/Homatropine Methylb (Hydromet) 10 ml PO Q6H PRN PRN Reason: Cough Last Admin: 03/21/17 23:17 Dose: 10 ml Insulin Aspart (Novolog) 0 units SUB-Q ACHS [facility] PRN Reason: Protocol Last Admin: 03/22/17 09:24 Dose: Not Given Losartan Potassium (Cozaar) 50 mg PO QDAY [facility] Last Admin: 03/22/17 09:23 Dose: 50 mg Magnesium Oxide (Mag-Ox) 400 mg PO DAILY [facility] Last Admin: 03/22/17 09:27 Dose: 400 mg Ondansetron HCl (Zofran) 4 mg IV Q8H PRN PRN Reason: N/V unrelieved by Reglan Physical Examination Vital Signs Temp Pulse Resp BP Pulse Ox 97.8 F 73 24 144/98 96 03/21/17 16:20 03/21/17 16:20 03/21/17 16:20 03/21/17 16:20 03/21/17 16:20 General appearance: no acute distress HEENT: Positive: PERRL Neck: Positive: trachea midline Cardiac: Positive: irregularly irregular Neuro: Positive: Grossly Intact Results 03/21/17 16:32 03/21/17 16:32 Assessment and Plan Persistent atrial fib/flutter, rate controlled on eliquis for oral anticoagulation Hyperkalemia Acute renal failure Hx of ischemic cardiomyopathy EF 20-25% on echo 02/2017 ACEi allergy Hx of CAD s/p 3v CABG 08/2015 MPI 10/2016: fixed defect of old inferolateral [place], no reversible ischemia Diabetes mellitus Hypertension Hx of COPD on home oxygen Hx of Obstructive sleep apnea
--- NOTE | 2017-03-22 14:02 | Progress Note ---
Assessment and Plan Assessment and plan: --Acute on chronic hypoxic respiratory failure Multifactorial, secondary to acute on chronic systolic CHF, home oxygen dependent COPD Obstructive sleep apnea, oxygen nebulizers anti-failure medications --Acute on chronic systolic congestive heart failure Ejection fraction of 20-25%, continue current anti-failure medications Input output monitoring, low sodium diet, fluid restriction Cardiology started on milrinone drip, mostly monitor --Atrial fibrillation; rate controlled Continue current beta blockers, supportive care, cardiology following --Chronic anticoagulation; continue Eliquis --History of coronary artery disease status post CABG Stable, on cardiac medications --Acute kidney injury; secondary to vasomotor nephropathy Closely monitor renal function and avoid nephrotoxic medications, consider nephrology evaluation if no improvement --Hypertension; rate controlled Resume home antihypertensives and when necessary medications --History of COPD, home oxygen dependent Continue oxygen, nebulizers, supportive care --Obesity; counseling done patient advised dietary modification and exercise as tolerated and weight reduction when medically stable --Obstructive sleep apnea; CPAP at night --Moderate malnutrition/hypoalbuminemia; supportive care Nutritional supplements --DVT prophylaxis; on Eliquis --CODE STATUS full code Plan of care discussed with the patient, at the bedside Consults and recommendations noted History Interval history: Patient seen and evaluated medical records reviewed No new events reported by the nursing staff Cardiology Started on milrinone drip Complains of mild shortness of breath and cough Hospitalist Physical - Constitutional Vitals: Temp Pulse Resp BP Pulse Ox 97.6 F 63 18 151/110 100 03/22/17 12:00 03/22/17 12:00 03/22/17 12:00 03/22/17 12:00 03/22/17 12:00 General appearance: Present: no acute distress, well-nourished, obese - EENT Eyes: Present: PERRL, EOM intact - Neck Neck: Present: supple, normal ROM - Respiratory Respiratory effort: normal Respiratory: bilateral: diminished, rales, negative: rhonchi, wheezing - Cardiovascular Rhythm: regular Heart Sounds: Present: S1 & S2 - Extremities Extremities: no ischemia Extremity abnormal: edema - Abdominal General gastrointestinal: soft, non-tender, non-distended, normal bowel sounds - Integumentary Integumentary: Present: clear, warm - Psychiatric Psychiatric: appropriate mood/affect, cooperative - Neurologic Neurologic: CNII-XII intact, moves all extremities Results - Labs CBC & Chem 7: 03/23/17 00:42 03/23/17 00:42 Labs: Laboratory Last Values WBC 10.2 K/mm3 (4.5-11.0) 03/21/17 16:32 RBC 4.25 M/mm3 (3.65-5.03) 03/21/17 16:32 Hgb 10.0 gm/dl (11.8-15.2) L 03/21/17 16:32 Hct 32.2 % (35.5-45.6) L 03/21/17 16:32 MCV 76 fl (84-94) L 03/21/17 16:32 MCH 24 pg (28-32) L 03/21/17 16:32 MCHC 31 % (32-34) L 03/21/17 16:32 RDW 18.5 % (13.2-15.2) H 03/21/17 16:32 Plt Count 541 K/mm3 (140-440) H 03/21/17 16:32 Lymph % (Auto) 8.6 % (13.4-35.0) L 03/21/17 16:32 Weber % (Auto) 5.1 % (0.0-7.3) 03/21/17 16:32 Eos % (Auto) 0.6 % (0.0-4.3) 03/21/17 16:32 Baso % (Auto) 0.6 % (0.0-1.8) 03/21/17 16:32 Lymph # 0.9 K/mm3 (1.2-5.4) L 03/21/17 16:32 Weber # 0.5 K/mm3 (0.0-0.8) 03/21/17 16:32 Eos # 0.1 K/mm3 (0.0-0.4) 03/21/17 16:32 Baso # 0.1 K/mm3 (0.0-0.1) 03/21/17 16:32 Seg Neutrophils % 85.1 % (40.0-70.0) H 03/21/17 16:32 Seg Neutrophils # 8.6 K/mm3 (1.8-7.7) H 03/21/17 16:32 PT 18.4 Sec. (12.2-14.9) H 03/21/17 16:32 INR 1.53 (0.87-1.13) H 03/21/17 16:32 APTT 33.9 Sec. (24.2-36.6) 03/21/17 16:32 Sodium 132 mmol/L (137-145) L 03/21/17 16:32 Potassium 5.2 mmol/L (3.6-5.0) H 03/21/17 16:32 Chloride 94.3 mmol/L (98-107) L 03/21/17 16:32 Carbon Dioxide 21 mmol/L (22-30) L 03/21/17 16:32 Anion Gap 22 mmol/L 03/21/17 16:32 BUN 49 mg/dL (9-20) H 03/21/17 16:32 Creatinine 2.0 mg/dL (0.8-1.5) H 03/21/17 16:32 Estimated GFR 33 ml/min 03/21/17 16:32 BUN/Creatinine Ratio 24.50 % 03/21/17 16:32 Glucose 250 mg/dL (75-100) H 03/21/17 16:32 POC Glucose 241 (70-105) H 03/22/17 12:27 Calcium 8.4 mg/dL (8.4-10.2) 03/21/17 16:32 Total Bilirubin 0.60 mg/dL (0.1-1.2) 03/21/17 16:32 AST 60 units/L (5-40) H 03/21/17 16:32 ALT 65 units/L (7-56) H 03/21/17 16:32 Alkaline Phosphatase 160 units/L (35-129) H 03/21/17 16:32 Total Creatine Kinase 408 units/L (55-170) H 03/21/17 16:32 CK-MB (CK-2) 13.5 ng/mL (0.0-4.0) H 03/21/17 16:32 CK-MB (CK-2) Rel Index 3.3 (0-4) 03/21/17 16:32 Troponin T 0.040 ng/mL (0.00-0.029) H 03/21/17 16:32 NT-Pro-B Natriuret Pep 65490 pg/mL (0-900) H 03/21/17 16:32 Total Protein 6.7 g/dL (6.3-8.2) 03/21/17 16:32 Albumin 3.3 g/dL (3.9-5) L 03/21/17 16:32 Albumin/Globulin Ratio 1.0 % 03/21/17 16:32 Triglycerides 118 mg/dL (2-149) 03/21/17 16:32 Cholesterol 138 mg/dL (50-199) 03/21/17 16:32 LDL Cholesterol Direct 81 mg/dL (50-130) 03/21/17 16:32 HDL Cholesterol 34 mg/dL (40-59) L 03/21/17 16:32 Cholesterol/HDL Ratio 4.05 % 03/21/17 16:32 Lipase 56 units/L (13-60) 03/21/17 16:32
[2017-03-22] MEDS: PRIMACOR 20 MG in D5W 80 ML IV SCH ×2 (15:48→23:26)
--- NOTE | 2017-03-22 16:44 | Cat Scan Report ---
CT of the abdomen and pelvis without contrast. History: Abdominal bloating and distention. Findings: Cardiomegaly is present. There is a moderate left pleural effusion. The liver is normal in size and configuration with no focal abnormalities. There multiple splenic calcifications but no other focal splenic lesions are identified. A moderate to large volume of ascites is present. The pancreas is normal in size and configuration. The left adrenal gland is prominent in size. There is a 1.5 cm calculus in the upper pole of the left kidney with no evidence of hydronephrosis. There is a 7 mm calculus at the right UP junction, but no hydronephrosis is present there are no renal masses. No pelvic masses are seen. Impression: 1. Moderate to large volume of ascites of uncertain etiology. 2. Bilateral nephrolithiasis without hydronephrosis. 3. Left pleural effusion. 4. Cardiomegaly. 5. Prominent left adrenal gland consistent with a benign process.
[2017-03-22] MEDS: HYDROMET PO PRN (21:39)
[2017-03-23 01:33] LABS: Hematocrit 26.8 % (35.5-45.6); Hemoglobin 8.4 gm/dl (11.8-15.2); Mean Corpuscular HGB Conc 32 % (32-34); Mean Corpuscular Volume 74 fl (84-94); Platelet Count 460 K/mm3 (140-440); Red Blood Count 3.62 M/mm3 (3.65-5.03); Red Cell Distribution Width 18.8 % (13.2-15.2); White Blood Count 9.2 K/mm3 (4.5-11.0)
[2017-03-23 01:36] LABS: Mean Corpuscular Hemoglobin 23 pg (28-32)
[2017-03-23 02:05] LABS: Albumin 2.8 g/dL (3.9-5); BUN/Creatinine Ratio 28.42; Bilirubin,Total 0.3 mg/dL (0.1-1.2); Calcium 8.3 mg/dL (8.4-10.2); Chloride 99.3 mmol/L (98-107); Potassium 4.7 mmol/L (3.6-5.0); Total Protein 5.7 g/dL (6.3-8.2)
[2017-03-23] MEDS: NOVOLOG SUB-Q SCH ×4 (08:02→22:53)
[2017-03-23] MEDS: BROVANA NEBU IH SCH ×2 (08:18→20:05)
[2017-03-23] MEDS: PULMICORT IH SCH ×2 (08:18→20:05)
[2017-03-23] MEDS: PRIMACOR 20 MG in D5W 80 ML IV SCH (09:20)
[2017-03-23] MEDS: FEOSOL PO SCH ×2 (09:20→21:44)
[2017-03-23] MEDS: MAG-OX PO SCH (09:20)
[2017-03-23] MEDS: VITAMIN D3 PO SCH (09:20)
[2017-03-23] MEDS: ELIQUIS PO SCH ×2 (09:21→21:44)
[2017-03-23] MEDS: COREG PO SCH ×2 (09:21→21:44)
[2017-03-23] MEDS: PLAVIX PO SCH (09:55)
--- NOTE | 2017-03-23 11:24 | Progress Note ---
Assessment and Plan Paroxysmal atrial fib/flutter eliquis reduced to low dose due to acute renal failure Hyperkalemia Acute renal failure losartan and lasix held Anemia Elevated liver enzymes statin therapy held Hx of ischemic cardiomyopathy EF 20-25% on echo 02/2017 ACEi allergy Hx of CAD s/p 3v CABG 08/2015 MPI 10/2016: fixed defect of old inferolateral VT, no reversible ischemia Diabetes mellitus Hypertension Hx of COPD on home oxygen Hx of Obstructive sleep apnea Recommendations: Monitor CBC closely while on eliquis. Continue aggressive medical therapy for his systolic heart failure to include IV milrinone. Subjective Date of service: 03/23/17 Interval history: Patient is resting in bed comfortably with eyes closed. Continues on IV milrinone. Noted acute drop on H&H. Objective Vital Signs Temp Pulse Pulse Resp Resp BP Pulse Ox 03/23/17 09:44 100 H 03/23/17 09:21 100 H 112/76 03/23/17 07:58 97.9 F 100 H 20 112/76 97 03/23/17 04:35 97.7 F 99 H 20 111/71 98 03/22/17 23:54 98.2 F 103 H 20 111/65 95 03/22/17 20:42 95 03/22/17 20:41 105 H 20 03/22/17 20:39 98.1 F 100 H 22 103/57 96 03/22/17 19:58 95 H 03/22/17 16:30 98.0 F 95 H 20 130/78 97 03/22/17 12:00 97.6 F 63 18 151/110 100 - Physical Examination General: No Apparent Distress Cardiac: Positive: Reg Rate and Rhythm Neuro: Positive: Grossly Intact - Labs and Meds Cardiac Enzymes 03/23/17 Range/Units 00:42 AST 55 H (5-40) units/L CBC 03/23/17 Range/Units 00:42 WBC 9.2 (4.5-11.0) K/mm3 RBC 3.62 L (3.65-5.03) M/mm3 Hgb 8.4 L (11.8-15.2) gm/dl Hct 26.8 L (35.5-45.6) % Plt Count 460 H (140-440) K/mm3 Comprehensive Metabolic Panel 03/23/17 Range/Units 00:42 Sodium 139 D (137-145) mmol/L Potassium 4.7 (3.6-5.0) mmol/L Chloride 99.3 (98-107) mmol/L Carbon Dioxide 23 (22-30) mmol/L BUN 54 H (9-20) mg/dL Creatinine 1.9 H (0.8-1.5) mg/dL Glucose 154 H (75-100) mg/dL Calcium 8.3 L (8.4-10.2) mg/dL AST 55 H (5-40) units/L ALT 67 H (7-56) units/L Alkaline Phosphatase 135 H (35-129) units/L Total Protein 5.7 L (6.3-8.2) g/dL Albumin 2.8 L (3.9-5) g/dL
--- NOTE | 2017-03-23 13:51 | Event Note ---
Date: 03/23/17 Patient was found on the floor briefly unresponsive but opening eyes, brief episodes of bradycardia heart rate ranging in 30s and 40s CODE BLUE/code met called, evaluation patient was alert and responding appropriately, vital signs were stable, did not need any intervention Patient was given 100% nonrebreather oxygen, help to the bed, no evidence of external injuries Stat EKG showed atrial flutter with rapid ventricular rate with heart rate in 120s, patient denied chest pain or shortness of breath Cardiology came and evaluated the patient, patient is hemodynamically stable, continue current management, Fall precautions Total critical care time spent 32 min
--- NOTE | 2017-03-23 13:51 | Progress Note ---
Assessment and Plan Assessment and plan: --Acute on chronic hypoxic respiratory failure Mild Improvement, secondary to acute on chronic systolic CHF, home oxygen dependent COPD Obstructive sleep apnea, oxygen nebulizers anti-failure medications --Acute on chronic systolic congestive heart failure Ejection fraction of 20-25%, mild improvement, continue anti-failure medications on milrinone drip, per cardiology --Atrial fibrillation/flutter; rate controlled, intermittent rapid ventricular rate Continue current beta blockers, cardiology following --Chronic anticoagulation; continue Eliquis --History of coronary artery disease status post CABG Stable, on cardiac medications --Acute kidney injury; secondary to vasomotor nephropathy Creatinine trending down today to 1.9, avoid nephrotoxic medications --Hypertension; well controlled Resume home antihypertensives and when necessary medications --History of COPD, home oxygen dependent Continue oxygen, nebulizers, supportive care --Obesity; counseling done patient advised dietary modification and exercise as tolerated and weight reduction when medically stable --Obstructive sleep apnea; CPAP at night --Moderate malnutrition/hypoalbuminemia; supportive care Nutritional supplements --DVT prophylaxis; on Eliquis --CODE STATUS full code Consults noted and appreciated Possible discharge in 1-2 days if stable History Interval history: Patient seen and evaluated in his room this morning medical records reviewed No new events reported by the nursing staff Receiving milrinone drip. Denies shortness of breath or chest pain Hospitalist Physical - Constitutional Vitals: Temp Pulse Resp BP Pulse Ox 98.0 F 103 H 20 130/63 97 03/23/17 11:53 03/23/17 11:53 03/23/17 11:53 03/23/17 11:53 03/23/17 11:53 General appearance: Present: no acute distress, well-nourished, obese - EENT Eyes: Present: PERRL, EOM intact - Neck Neck: Present: supple, normal ROM - Respiratory Respiratory effort: normal Respiratory: bilateral: diminished, negative: rales, rhonchi, wheezing - Cardiovascular Rhythm: regular Heart Sounds: Present: S1 & S2 - Extremities Extremities: no ischemia, No edema - Abdominal General gastrointestinal: soft, non-tender, non-distended, normal bowel sounds - Integumentary Integumentary: Present: clear, warm - Psychiatric Psychiatric: appropriate mood/affect, cooperative - Neurologic Neurologic: CNII-XII intact, moves all extremities Results - Labs CBC & Chem 7: 08/03/17 00:42 03/23/17 00:42 Labs: Laboratory Last Values WBC 9.2 K/mm3 (4.5-11.0) 03/23/17 00:42 RBC 3.62 M/mm3 (3.65-5.03) L 03/23/17 00:42 Hgb 8.4 gm/dl (11.8-15.2) L 03/23/17 00:42 Hct 26.8 % (35.5-45.6) L 03/23/17 00:42 MCV 74 fl (84-94) L 03/23/17 00:42 MCH 23 pg (28-32) L 03/23/17 00:42 MCHC 32 % (32-34) 03/23/17 00:42 RDW 18.8 % (13.2-15.2) H 03/23/17 00:42 Plt Count 460 K/mm3 (140-440) H 03/23/17 00:42 Lymph % (Auto) 8.6 % (13.4-35.0) L 03/21/17 16:32 Will % (Auto) 5.1 % (0.0-7.3) 03/21/17 16:32 Eos % (Auto) 0.6 % (0.0-4.3) 03/21/17 16:32 Baso % (Auto) 0.6 % (0.0-1.8) 03/21/17 16:32 Lymph # 0.9 K/mm3 (1.2-5.4) L 03/21/17 16:32 Will # 0.5 K/mm3 (0.0-0.8) 03/21/17 16:32 Eos # 0.1 K/mm3 (0.0-0.4) 03/21/17 16:32 Baso # 0.1 K/mm3 (0.0-0.1) 03/21/17 16:32 Seg Neutrophils % 85.1 % (40.0-70.0) H 03/21/17 16:32 Seg Neutrophils # 8.6 K/mm3 (1.8-7.7) H 03/21/17 16:32 PT 18.4 Sec. (12.2-14.9) H 03/21/17 16:32 INR 1.53 (0.87-1.13) H 03/21/17 16:32 APTT 33.9 Sec. (24.2-36.6) 03/21/17 16:32 Sodium 139 mmol/L (137-145) D 03/23/17 00:42 Potassium 4.7 mmol/L (3.6-5.0) 03/23/17 00:42 Chloride 99.3 mmol/L (98-107) 03/23/17 00:42 Carbon Dioxide 23 mmol/L (22-30) 03/23/17 00:42 Anion Gap 21 mmol/L 03/23/17 00:42 BUN 54 mg/dL (9-20) H 03/23/17 00:42 Creatinine 1.9 mg/dL (0.8-1.5) H 03/23/17 00:42 Estimated GFR 35 ml/min 03/23/17 00:42 BUN/Creatinine Ratio 28.42 % 03/23/17 00:42 Glucose 154 mg/dL (75-100) H 03/23/17 00:42 POC Glucose 248 (70-105) H 03/23/17 11:12 Calcium 8.3 mg/dL (8.4-10.2) L 03/23/17 00:42 Total Bilirubin 0.30 mg/dL (0.1-1.2) 03/23/17 00:42 AST 55 units/L (5-40) H 03/23/17 00:42 ALT 67 units/L (7-56) H 03/23/17 00:42 Alkaline Phosphatase 135 units/L (35-129) H 03/23/17 00:42 Total Creatine Kinase 408 units/L (55-170) H 03/21/17 16:32 CK-MB (CK-2) 13.5 ng/mL (0.0-4.0) H 03/21/17 16:32 CK-MB (CK-2) Rel Index 3.3 (0-4) 03/21/17 16:32 Troponin T 0.040 ng/mL (0.00-0.029) H 03/21/17 16:32 NT-Pro-B Natriuret Pep 02658 pg/mL (0-900) H 03/21/17 16:32 Total Protein 5.7 g/dL (6.3-8.2) L 03/23/17 00:42 Albumin 2.8 g/dL (3.9-5) L 03/23/17 00:42 Albumin/Globulin Ratio 1.0 % 03/23/17 00:42 Triglycerides 118 mg/dL (2-149) 03/21/17 16:32 Cholesterol 138 mg/dL (50-199) 03/21/17 16:32 LDL Cholesterol Direct 81 mg/dL (50-130) 03/21/17 16:32 HDL Cholesterol 34 mg/dL (40-59) L 03/21/17 16:32 Cholesterol/HDL Ratio 4.05 % 03/21/17 16:32 Lipase 56 units/L (13-60) 03/21/17 16:32
--- NOTE | 2017-03-23 14:01 | XRay Report ---
AP CHEST: HISTORY: Shortness of breath Moderate cardiomegaly and mild pulmonary venous congestion are unchanged since 03/21/17. No consolidation, large pleural effusion or pneumothorax is appreciated. Previous CABG changes are noted. IMPRESSION: No significant change in cardiomegaly and pulmonary venous congestion since the exam 2 days ago.
[2017-03-23] MEDS: HYDROMET PO PRN (21:43)
[2017-03-23 21:49] LABS: Hematocrit 27.9 % (35.5-45.6); Hemoglobin 8.8 gm/dl (11.8-15.2)
[2017-03-24] MEDS: PRIMACOR 20 MG in D5W 80 ML IV SCH ×2 (00:20→08:50)
[2017-03-24 06:53] LABS: Basophils % (Auto) 0.3 % (0.0-1.8); Eosinophils % (Auto) 3.9 % (0.0-4.3); Hematocrit 29.2 % (35.5-45.6); Hemoglobin 9.1 gm/dl (11.8-15.2); Mean Corpuscular HGB Conc 31 % (32-34); Mean Corpuscular Volume 75 fl (84-94); Platelet Count 480 K/mm3 (140-440); Red Blood Count 3.89 M/mm3 (3.65-5.03); Red Cell Distribution Width 19.1 % (13.2-15.2); White Blood Count 9.5 K/mm3 (4.5-11.0)
[2017-03-24 07:03] LABS: Mean Corpuscular Hemoglobin 24 pg (28-32)
[2017-03-24 07:14] LABS: BUN/Creatinine Ratio 26.66; Calcium 8.2 mg/dL (8.4-10.2); Chloride 100.6 mmol/L (98-107); Magnesium 2.5 mg/dL (1.7-2.3); Potassium 5.3 mmol/L (3.6-5.0)
[2017-03-24] MEDS: PULMICORT IH SCH ×2 (07:53→19:54)
[2017-03-24] MEDS: BROVANA NEBU IH SCH ×2 (07:53→19:54)
[2017-03-24] MEDS: NOVOLOG SUB-Q SCH ×3 (08:52→18:24)
[2017-03-24] MEDS: COREG PO SCH ×2 (09:28→22:09)
[2017-03-24] MEDS: VITAMIN D3 PO SCH (09:28)
[2017-03-24] MEDS: PLAVIX PO SCH (09:28)
[2017-03-24] MEDS: FEOSOL PO SCH ×2 (09:28→22:11)
[2017-03-24] MEDS: MAG-OX PO SCH (09:29)
[2017-03-24] MEDS: ELIQUIS PO SCH (09:29)
[2017-03-24] MEDS ORDERED: ELIQUIS PO SCH ×2 (13:27→22:00)
--- NOTE | 2017-03-24 13:27 | Progress Note ---
Assessment and Plan Persistent atrial fib/flutter, rate controlled on eliquis for oral anticoagulation Hyperkalemia Acute renal failure Hx of ischemic cardiomyopathy EF 20-25% on echo 02/2017 ACEi allergy Hx of CAD s/p 3v CABG 08/2015 MPI 10/2016: fixed defect of old inferolateral [place], no reversible ischemia Episodes of complete heart block on Diabetes mellitus Hypertension Hx of COPD on home oxygen Hx of Obstructive sleep apnea Recommendations: Continue IV milrinone Resume IV lasix once a day Discontinue Magnesium oxide Increase eliquis to therapeutic dose at 5 mg po bid Will plan for CAROL guided cardioversion next week when better compensated Will also plan for AICD insertion prior to discharge Subjective Date of service: 03/24/17 Principal diagnosis: CHF Interval history: Patient is feeling better today. His is at the bedside. Patient is still short of breath when he talks for a long time. His abdomen is less distended. Objective Vital Signs Temp Pulse Pulse Pulse Resp Resp Resp 03/24/17 10:00 103 H 22 20 03/24/17 08:07 105 H 20 03/24/17 08:00 98.6 F 103 H 24 03/24/17 07:53 107 H 20 03/24/17 07:00 103 H 03/24/17 05:32 98.0 F 101 H 24 03/24/17 00:59 97.9 F 12 L 22 03/23/17 20:16 93 H 18 03/23/17 20:15 98.0 F 98 H 22 03/23/17 20:05 97 H 18 03/23/17 19:45 98 H BP Pulse Ox 03/24/17 10:00 100 03/24/17 08:07 03/24/17 08:00 144/94 100 03/24/17 07:53 97 03/24/17 07:00 03/24/17 05:32 133/67 94 03/24/17 00:59 126/82 96 03/23/17 20:16 03/23/17 20:15 140/79 97 03/23/17 20:05 98 03/23/17 19:45 - Physical Examination General: No Apparent Distress HEENT: Positive: PERRL Neck: Positive: trachea midline Cardiac: Positive: irregularly irregular Lungs: Positive: Decreased Breath Sounds Neuro: Positive: Grossly Intact - Labs and Meds CBC 03/23/17 03/24/17 Range/Units 21:23 06:44 WBC 9.5 (4.5-11.0) K/mm3 RBC 3.89 (3.65-5.03) M/mm3 Hgb 8.8 L 9.1 L (11.8-15.2) gm/dl Hct 27.9 L 29.2 L (35.5-45.6) % Plt Count 480 H (140-440) K/mm3 Lymph # 0.9 L (1.2-5.4) K/mm3 [place] # 0.8 (0.0-0.8) K/mm3 Eos # 0.4 (0.0-0.4) K/mm3 Baso # 0.0 (0.0-0.1) K/mm3 Comprehensive Metabolic Panel 03/24/17 Range/Units 06:44 Sodium 140 (137-145) mmol/L Potassium 5.3 H (3.6-5.0) mmol/L Chloride 100.6 (98-107) mmol/L Carbon Dioxide 27 (22-30) mmol/L BUN 48 H (9-20) mg/dL Creatinine 1.8 H (0.8-1.5) mg/dL Glucose 179 H (75-100) mg/dL Calcium 8.2 L (8.4-10.2) mg/dL
[2017-03-24] MEDS ORDERED: LASIX IV SCH (14:00)
--- NOTE | 2017-03-24 15:54 | Progress Note ---
Assessment and Plan Assessment and plan: --Acute on chronic hypoxic respiratory failure secondary to acute on chronic systolic CHF, home oxygen dependent COPD Obstructive sleep apnea, supportive care --Acute on chronic systolic congestive heart failure Ejection fraction of 20-25%, mild improvement, continue anti-failure medications On milrinone drip --Ischemic cardiomyopathy; continue current management --Persistent Atrial fibrillation/flutter; now rate controlled, intermittent rapid ventricular rate Continue current beta blockers, cardiology following --Recent episode of bradycardia/complete heart block, evaluation for ICD --Chronic anticoagulation; Eliquis dose increased to 5 mg every 12 --History of coronary artery disease status post CABG Stable, on cardiac medications --Acute kidney injury; secondary to vasomotor nephropathy Creatinine trending down today to 1.9, avoid nephrotoxic medications --Hypertension; well controlled Resume home antihypertensives and when necessary medications --History of COPD, home oxygen dependent Continue oxygen, nebulizers, supportive care --Obesity; counseling done patient advised dietary modification and exercise as tolerated and weight reduction when medically stable --Obstructive sleep apnea; CPAP at night --Moderate malnutrition/hypoalbuminemia; supportive care Nutritional supplements --DVT prophylaxis; on Eliquis --CODE STATUS full code Consults noted and appreciated Possible discharge in 1-2 days if stable History Interval history: Patient seen and evaluated this morning medical records reviewed No new events reported by nursing staff Patient feels better no chest pain or shortness of breath Alert awake oriented 3 not in acute distress vital signs reviewed Hospitalist Physical - Constitutional Vitals: Temp Pulse Resp BP Pulse Ox 98.1 F 110 H 20 140/89 96 03/24/17 13:00 03/24/17 13:19 03/24/17 13:19 03/24/17 13:00 03/24/17 13:00 General appearance: Present: no acute distress, well-nourished, obese - EENT Eyes: Present: PERRL, EOM intact - Neck Neck: Present: supple, normal ROM - Respiratory Respiratory effort: normal Respiratory: negative: rales, rhonchi, wheezing - Cardiovascular Rhythm: irregularly irregular Heart Sounds: Present: S1 & S2 - Extremities Extremities: no ischemia, No edema - Abdominal General gastrointestinal: soft, non-tender, non-distended, normal bowel sounds - Integumentary Integumentary: Present: clear, warm - Psychiatric Psychiatric: appropriate mood/affect, cooperative - Neurologic Neurologic: CNII-XII intact, moves all extremities Results - Labs CBC & Chem 7: 03/24/17 06:44 08 06:44 Labs: Laboratory Last Values WBC 9.5 K/mm3 (4.5-11.0) 03/24/17 06:44 RBC 3.89 M/mm3 (3.65-5.03) 03/24/17 06:44 Hgb 9.1 gm/dl (11.8-15.2) L 03/24/17 06:44 Hct 29.2 % (35.5-45.6) L 03/24/17 06:44 MCV 75 fl (84-94) L 03/24/17 06:44 MCH 24 pg (28-32) L 03/24/17 06:44 MCHC 31 % (32-34) L 03/24/17 06:44 RDW 19.1 % (13.2-15.2) H 03/24/17 06:44 Plt Count 480 K/mm3 (140-440) H 03/24/17 06:44 Lymph % (Auto) 9.7 % (13.4-35.0) L 03/24/17 06:44 [place] % (Auto) 8.2 % (0.0-7.3) H 03/24/17 06:44 Eos % (Auto) 3.9 % (0.0-4.3) 03/24/17 06:44 Baso % (Auto) 0.3 % (0.0-1.8) 03/24/17 06:44 Lymph # 0.9 K/mm3 (1.2-5.4) L 03/24/17 06:44 [place] # 0.8 K/mm3 (0.0-0.8) 03/24/17 06:44 Eos # 0.4 K/mm3 (0.0-0.4) 03/24/17 06:44 Baso # 0.0 K/mm3 (0.0-0.1) 03/24/17 06:44 Seg Neutrophils % 77.9 % (40.0-70.0) H 03/24/17 06:44 Seg Neutrophils # 7.4 K/mm3 (1.8-7.7) 03/24/17 06:44 PT 18.4 Sec. (12.2-14.9) H 03/21/17 16:32 INR 1.53 (0.87-1.13) H 03/21/17 16:32 APTT 33.9 Sec. (24.2-36.6) 03/21/17 16:32 Sodium 140 mmol/L (137-145) 03/24/17 06:44 Potassium 5.3 mmol/L (3.6-5.0) H 03/24/17 06:44 Chloride 100.6 mmol/L (98-107) 03/24/17 06:44 Carbon Dioxide 27 mmol/L (22-30) 03/24/17 06:44 Anion Gap 18 mmol/L 03/24/17 06:44 BUN 48 mg/dL (9-20) H 03/24/17 06:44 Creatinine 1.8 mg/dL (0.8-1.5) H 03/24/17 06:44 Estimated GFR 37 ml/min 03/24/17 06:44 BUN/Creatinine Ratio 26.66 % 03/24/17 06:44 Glucose 179 mg/dL (75-100) H 03/24/17 06:44 POC Glucose 322 (70-105) H 03/23/17 22:19 Calcium 8.2 mg/dL (8.4-10.2) L 03/24/17 06:44 Magnesium 2.50 mg/dL (1.7-2.3) H 03/24/17 06:44 Total Bilirubin 0.30 mg/dL (0.1-1.2) 03/23/17 00:42 AST 55 units/L (5-40) H 03/23/17 00:42 ALT 67 units/L (7-56) H 03/23/17 00:42 Alkaline Phosphatase 135 units/L (35-129) H 03/23/17 00:42 Total Creatine Kinase 408 units/L (55-170) H 03/21/17 16:32 CK-MB (CK-2) 13.5 ng/mL (0.0-4.0) H 03/21/17 16:32 CK-MB (CK-2) Rel Index 3.3 (0-4) 03/21/17 16:32 Troponin T 0.040 ng/mL (0.00-0.029) H 03/21/17 16:32 NT-Pro-B Natriuret Pep 40633 pg/mL (0-900) H 03/21/17 16:32 Total Protein 5.7 g/dL (6.3-8.2) L 03/23/17 00:42 Albumin 2.8 g/dL (3.9-5) L 03/23/17 00:42 Albumin/Globulin Ratio 1.0 % 03/23/17 00:42 Triglycerides 118 mg/dL (2-149) 03/21/17 16:32 Cholesterol 138 mg/dL (50-199) 03/21/17 16:32 LDL Cholesterol Direct 81 mg/dL (50-130) 03/21/17 16:32 HDL Cholesterol 34 mg/dL (40-59) L 03/21/17 16:32 Cholesterol/HDL Ratio 4.05 % 03/21/17 16:32 Lipase 56 units/L (13-60) 03/21/17 16:32
[2017-03-24] MEDS: HYDROMET PO PRN (20:05)
[2017-03-25 00:16] VITALS: BP 143/82
[2017-03-25 01:38] LABS: BUN/Creatinine Ratio 27.05; Calcium 8.2 mg/dL (8.4-10.2)
[2017-03-25 01:44] LABS: Chloride 98.3 mmol/L (98-107); Potassium 4.7 mmol/L (3.6-5.0)
[2017-03-25] MEDS: PRIMACOR 20 MG in D5W 80 ML IV SCH (05:10)
[2017-03-25] MEDS: NOVOLOG SUB-Q SCH (05:11)
[2017-03-25] MEDS: PULMICORT IH SCH (07:14)
[2017-03-25] MEDS: BROVANA NEBU IH SCH (07:14)
[2017-03-25] MEDS ORDERED: ADRENALIN ONE (07:28)
[2017-03-25] MEDS ORDERED: SODIUM BICARBONATE IV ONE (07:28)
[2017-03-25] MEDS ORDERED: ATROPINE 0.1% (CARDIAC) ONE (07:28)
[2017-03-25] MEDS ORDERED: ADRENALIN IV ONE (07:28)
[2017-03-25] MEDS ORDERED: CORDARONE IV ONE (07:28)
--- NOTE | 2017-03-25 08:23 | Progress Note ---
Subjective Date of service: 03/25/17 Principal diagnosis: CHF Interval history: Called to assist with a difficult intubation on a patient in full cardiac arrest. Prior tries were unsuccessful. Patient was noted to be very anterior with marked decrease in neck extension. His airway was visualized with a MAC 3 blade. The cords were not visible but I was able to blindly pass a tube changer into the trachea. The tube was secured with bilateral breath sounds and a positive color change on ETCO2 detector. Objective - Constitutional Vitals: Vital Signs - 12hr 03/24/17 03/24/17 03/25/17 22:00 22:09 00:15 Temperature 98.5 F Pulse Rate 114 H 111 H Pulse Rate [ 103 H Right Radial] Respiratory 20 Rate Respiratory 20 Rate [DENIES] Blood Pressure 132/78 143/82 O2 Sat by Pulse 92 Oximetry - Labs CBC & Chem 7: 03/24/17 06:44 03/25/17 00:41 Labs: Abnormal lab results 03/24/17 03/24/17 03/24/17 Range/Units 07:59 12:20 18:20 BUN (9-20) mg/dL Creatinine (0.8-1.5) mg/dL Glucose (75-100) mg/dL POC Glucose 192 H 323 H 340 H (70-105) Calcium (8.4-10.2) mg/dL 03/25/17 Range/Units 00:41 BUN 46 H (9-20) mg/dL Creatinine 1.7 H (0.8-1.5) mg/dL Glucose 152 H (75-100) mg/dL POC Glucose (70-105) Calcium 8.2 L (8.4-10.2) mg/dL
--- NOTE | 2017-03-25 09:21 | Death Summary ---
Summary - Providers Date of service: 03/25/17 Consults: Cardiology Anesthesiology Attending: NADJA HENRY - summary Date of admission: 03/21/17 18:33 Date of : 03/25/17 (at 08:08 hrs[8:08 am]) Reason for admission: worsening shortness of breath/acute on chronic hypoxic respiratory failure Significant findings: Final diagnosis: Acute on chronic hypoxic respiratory failure Acute on chronic systolic congestive heart failure Ischemic cardiomyopathy Persistent atrial fibrillation flutter Recent episode of bradycardia with complete heart block Chronic anticoagulation Coronary artery disease status post CABG Hypertension Hyperkalemia resolved History of COPD with exacerbation Morbid obesity Obstructive sleep apnea CPAP at night Moderate malnutrition 71-year-old male patient with multiple medical problems was admitted through emergency room with worsening shortness of breath Patient was symptomatically managed initially, evaluation by cardiology, placed him on milrinone drip, patient's symptoms slightly improved however patient had rapid response, and he had severe bradycardia and fell on the floor, was resuscitated, cardiology evaluated the patient, had an episode of complete heart block RD as he was planning for CAROL guided cardio version and evaluation for ICD placement Medications adjusted, with mild improvement However patient continued to be critically ill And on 03/25/2017 he had cardiorespiratory arrest, CODE BLUE was called, CPR was done per ACLS protocol Patient had very difficult intubation requiring anesthesiologist intervention. CPR initiated at 7:29 AM and continued until 80 8 AM, a shunt could not be resuscitated. Pronounced . Time of : 08:08 am on 03/25/17 Informed family, nurses and the charge nurse Time spent 45 minutes Procedures/treatments rendered: CPR per ACLS protocol Endotracheal intubation Pertinent studies: Chest x-ray; stable cardiomegaly no CHF CT abdomen and pelvis; moderate to large volume ascites of uncertain etiology Bilateral nephrolithiasis without hydronephrosis Left pleural effusion and cardiomegaly Prominent left adrenal gland consistent with benign process Disposition:
== END 2017-03-25 12:03 | DRG 682 ==
LOC: ED 16:17 → 4A 18:33
PROVIDERS: ADMIT Internal Medicine; ATTEND Internal Medicine
PROC: 5A12012 Performance of Cardiac Output, Single, Manual (ICD-10-PCS; principal; 2017-03-25)
PROC: 0BH17EZ Insertion of Endotracheal Airway into Trachea, Via Natural or Artificial Opening (ICD-10-PCS; 2017-03-25)
DX: N17.0 Acute kidney failure with tubular necrosis (principal); J96.21 Acute and chronic respiratory failure with hypoxia; I50.23 Acute on chronic systolic (congestive) heart failure; I48.92 Unspecified atrial flutter; E44.0 Moderate protein-calorie malnutrition; I44.2 Atrioventricular block, complete; I42.0 Dilated cardiomyopathy; I11.0 Hypertensive heart disease with heart failure; E87.5 Hyperkalemia; E11.9 Type 2 diabetes mellitus without complications; M19.90 Unspecified osteoarthritis, unspecified site; J44.9 Chronic obstructive pulmonary disease, unspecified; I25.10 Atherosclerotic heart disease of native coronary artery without angina pectoris; E78.5 Hyperlipidemia, unspecified; I25.5 Ischemic cardiomyopathy; G47.33 Obstructive sleep apnea (adult) (pediatric); E66.9 Obesity, unspecified; I48.0 Paroxysmal atrial fibrillation; I46.9 Cardiac arrest, cause unspecified; Z79.01 Long term (current) use of anticoagulants; Z95.5 Presence of coronary angioplasty implant and graft; Z95.1 Presence of aortocoronary bypass graft; Z82.49 Family history of ischemic heart disease and other diseases of the circulatory system; Z88.0 Allergy status to penicillin; Z88.8 Allergy status to other drugs, medicaments and biological substances; Z83.3 Family history of diabetes mellitus; Z99.81 Dependence on supplemental oxygen; Z68.33 Body mass index [BMI] 33.0-33.9, adult; D50.9 Iron deficiency anemia, unspecified
CPT/HCPCS: 36415; 71010; 74176; 80048; 80053; 80061; 82550; 82553; 82962; 83690; 83735; 83880; 84484; 85014; 85018; 85025; 85027; 85610; 85730; 92950; 93005; 93010; 94640; 94760; 96374; 96375; A9270-GY; J0171; J0282; J0461; J1815; J1940; J2260; J2405